=== PATIENT | female | born 2000 | race Caucasian/White ===

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

== ENCOUNTER → 2020-04-24 15:42 | Outpatient (CLI) | payer OTHER, SELFPAY ==
[2019-08-09 11:36] VITALS: BMI 23.6
== END ==
PROVIDERS: PCP Family Medicine; Referring Provider Family Medicine; Visit Provider Family Medicine
DX: Z20.822 Contact with and (suspected) exposure to COVID-19 (principal)
CPT/HCPCS: 87635; U0003

== ENCOUNTER → 2020-10-29 11:44 | Outpatient (CLI) | payer OTHER, SELFPAY ==
[2020-10-29 11:24] VITALS: BMI 24.0
[2020-10-29 13:13] LABS: HIV - WCH Non-Reactive (Nonreactive); Hepatitis C Antibody Non-Reactive (Nonreactive); Syphilis Antibodies Non-reactive
[2020-10-30 08:37] LABS: HSV 2 IgG < 0.91 index (0.00-0.90)
[2020-10-31 03:07] LABS: Chlamydia By Nucleic Acid AMP Negative (Negative)
[2020-10-31 12:11] LABS: Gonococcus By Nucleic Acid AMP Negative (Negative)
== END ==
PROVIDERS: PCP Family Medicine; Referring Provider Nurse Practitioner Women's Health; Visit Provider Nurse Practitioner Women's Health
DX: Z11.3 Encounter for screening for infections with a predominantly sexual mode of transmission (principal); Z20.2 Contact with and (suspected) exposure to infections with a predominantly sexual mode of transmission; N89.8 Other specified noninflammatory disorders of vagina
CPT/HCPCS: 36415; 86695; 86696; 86703; 86780; 86803; 87070; 87205; 87491; 87591

== ENCOUNTER → 2020-11-19 | Outpatient (CLI) | payer OTHER, SELFPAY | END | disposition home or self-care (01) | PROVIDERS: PCP Family Medicine; Visit Provider Nurse Practitioner Women's Health | DX: R30.0 Dysuria (principal) | CPT/HCPCS: 87077; 87086; 87088; 87186 ==

== ENCOUNTER → 2020-12-26 | Outpatient (CLI) | payer OTHER, SELFPAY | END | disposition home or self-care (01) | LOC: LABSPEC 10:37 | PROVIDERS: PCP Family Medicine; Visit Provider Family Medicine | DX: S01.332A Puncture wound without foreign body of left ear, initial encounter (principal); X58.XXXA Exposure to other specified factors, initial encounter; Y93.9 Activity, unspecified; Y92.9 Unspecified place or not applicable; Y99.9 Unspecified external cause status | CPT/HCPCS: 87070; 87077; 87186; 87205 ==

== ENCOUNTER 2021-05-14 11:27 | Outpatient (CLI) | payer OTHER, SELFPAY | END 2021-05-14 23:59 | disposition home or self-care (01) | LOC: LABSPEC 11:27 | PROVIDERS: PCP Family Medicine; Visit Provider Obstetrics & Gynecology | DX: B37.7 Candidal sepsis (principal) | CPT/HCPCS: 87070; 87186; 87205 ==

== ENCOUNTER → 2022-01-15 | Outpatient (CLI) | payer OTHER, SELFPAY | END | disposition home or self-care (01) | LOC: LABSPEC 14:30 | PROVIDERS: PCP Family Medicine; Referring Provider Nurse Practitioner Women's Health; Visit Provider Nurse Practitioner Women's Health | DX: R30.0 Dysuria (principal) | CPT/HCPCS: 87086; 87088; 87186 ==

== ENCOUNTER → 2022-01-27 | Outpatient (CLI) | payer OTHER, SELFPAY ==
[2022-01-27 17:56] LABS: Bacteria 0 SEEN /hpf (None Seen); Mucous, Urine 0 SEEN /hpf (<or=2+); Red Blood Cells-Urine 0 SEEN /hpf (0-5); Squamous Epithelial Cells - UA 0 SEEN /hpf (5-10)
[2022-01-27 18:49] LABS: Color, Urine Yellow (Yellow); Glucose, Dipstick Normal (Normal); Ketone-Dipstick Negative (Negative); Leukocyte Esterase-Dipstick 25 /ul (Negative); Nitrite-Dipstick Negative (Negative); Occult Blood-Urine 150 /ul (Negative); Protein-Dipstick Negative (Negative); Specific Gravity, Urine 1.005 (1.002-1.030); Urine Bilirubin Dipstick Negative (Negative); Urine Clarity Clear (Clear); Urine Urobilinogen Normal (Normal)
[2022-01-27 18:59] LABS: White Blood Cells 0-5 SEEN /hpf (0-5)
[2022-01-30 16:08] LABS: Gonococcus By Nucleic Acid AMP Negative (Negative)
[2022-01-30 16:09] LABS: Chlamydia By Nucleic Acid AMP Positive (Negative)
[2022-02-02 18:41] LABS: HPV Reflexed? NOT INDICATED
== END | disposition home or self-care (01) ==
LOC: LABSPEC 16:59
PROVIDERS: PCP Family Medicine; Referring Provider Nurse Practitioner Women's Health; Visit Provider Nurse Practitioner Women's Health
DX: Z12.4 Encounter for screening for malignant neoplasm of cervix (principal); N39.0 Urinary tract infection, site not specified; N89.8 Other specified noninflammatory disorders of vagina
CPT/HCPCS: 81001; 87070; 87205; 87491; 87591; 88175; G0145

== ENCOUNTER → 2022-04-21 | Outpatient (CLI) | payer OTHER, SELFPAY ==
[2022-04-21 11:00] LABS: HIV - WCH Non-Reactive (Nonreactive); Syphilis Antibodies Non-reactive
[2022-04-22 11:28] LABS: HSV 2 IgG < 0.91 index (0.00-0.90)
[2022-04-23 15:08] LABS: Chlamydia By Nucleic Acid AMP Negative (Negative)
[2022-04-23 16:24] LABS: Gonococcus By Nucleic Acid AMP Negative (Negative)
== END | disposition home or self-care (01) ==
PROVIDERS: PCP Family Medicine; Referring Provider Registered Nurse; Visit Provider Registered Nurse
DX: Z11.3 Encounter for screening for infections with a predominantly sexual mode of transmission (principal)
CPT/HCPCS: 36415; 86695; 86696; 86703; 86780; 87491; 87591

== ENCOUNTER → 2022-11-13 | Outpatient (CLI) | payer OTHER, SELFPAY ==
[2022-11-13 22:08] LABS: HIV - WCH Non-Reactive (Nonreactive); Hepatitis B Surface Antigen Non-Reactive (Nonreactive); Hepatitis C Antibody Non-Reactive (Nonreactive); Syphilis Antibodies Non-reactive
[2022-11-15 05:07] LABS: HSV 2 IgG < 0.91 index (0.00-0.90)
[2022-11-17 22:06] LABS: Chlamydia By Nucleic Acid AMP Negative (Negative); Gonococcus By Nucleic Acid AMP Negative (Negative)
== END | disposition home or self-care (01) ==
PROVIDERS: PCP Family Medicine; Referring Provider Advanced Practice Midwife; Visit Provider Advanced Practice Midwife
DX: N89.8 Other specified noninflammatory disorders of vagina (principal); Z11.3 Encounter for screening for infections with a predominantly sexual mode of transmission
CPT/HCPCS: 36415; 86695; 86696; 86703; 86780; 86803; 87070; 87077; 87205; 87340; 87491; 87591

== ENCOUNTER → 2023-08-12 | Outpatient (CLI) | payer OTHER, SELFPAY ==
[2023-08-12 16:36] LABS: HIV - WCH Non-Reactive (Nonreactive); Syphilis Antibodies Non-reactive
[2023-08-14 19:07] LABS: HCV Quant. RNA PCR HCV Not Detected IU/mL (.); HEPATITIS B SURFACE AG Negative (Negative); Hep C Antibodies Non Reactive (Non Reactive); Hepatitis A IgM Antibody Negative (Negative); Hepatitis B Core AB IgM Negative (Negative)
[2023-08-14 20:07] LABS: Chlamydia By Nucleic Acid AMP Negative (Negative); Gonococcus By Nucleic Acid AMP Negative (Negative)
== END | disposition home or self-care (01) ==
PROVIDERS: PCP Family Medicine; Referring Provider Nurse Practitioner Family; Visit Provider Nurse Practitioner Family
DX: Z11.3 Encounter for screening for infections with a predominantly sexual mode of transmission (principal); B37.31 Acute candidiasis of vulva and vagina
CPT/HCPCS: 36415; 80074; 86703; 86780; 87070; 87205; 87491; 87522; 87591

== ENCOUNTER → 2023-12-10 | Outpatient (CLI) | payer OTHER, SELFPAY ==
[2023-12-14 03:13] LABS: Chlamydia By Nucleic Acid AMP Negative (Negative); Gonococcus By Nucleic Acid AMP Negative (Negative)
== END | disposition home or self-care (01) ==
LOC: LABSPEC 12:48
PROVIDERS: PCP Family Medicine; Referring Provider Advanced Practice Midwife; Visit Provider Advanced Practice Midwife
DX: Z11.3 Encounter for screening for infections with a predominantly sexual mode of transmission (principal)
CPT/HCPCS: 87491; 87591

== ENCOUNTER → 2024-07-13 | Outpatient (CLI) | payer OTHER, SELFPAY ==
[2024-07-13 12:40] LABS: Erythrocyte Sedimentation Rate 3 mm/hr (0-30)
[2024-07-13 12:58] LABS: Absolute Lymphocyte Count 2.18 X10^3/uL (0.83-4.51); Absolute Neutrophil Count 3.5 X10^3/uL (2.0-7.7); Basophil# 0.02 X10^3/uL; Basophil% 0.3 % (0-1); Eosinophil# 0.21 X10^3/uL; Eosinophils% 3.3 % (0-5); Hematocrit 43.2 % (37-47); Hemoglobin 14.1 g/dL (12.0-15.0); Lymphocyte # 2.18 X10^3/ul (0.83-4.51); Lymphocyte % 33.7 % (19-41); Mean Corp Hgb Conc 32.6 g/dL (32-36); Mean Corpuscular Volume 82.8 fL (81-99); Mean Platelet Vol. 10.6 fl (6.2-12.0); Monocyte# 0.52 X10^3/uL; NRBC Flagged by Analyzer 0 % (0-5); Neutrophil # 3.52 X10^3/uL (2.7-7.7); Neutrophil % 54.5 % (47-70); Platelet Count 339 K/mm3 (150-450); RBC Distribution Width CV 12.2 % (11.6-14.6); RBC Distribution Width SD 37.2 fl (35.1-43.9); Red Blood Count 5.22 M/mm3 (4.2-5.4); White Blood Count 6.5 K/mm3 (4.4-11.0)
[2024-07-13 13:26] LABS: ALB/GLOB Ratio 1.3 RATIO (0.9-2.4); AST(SGOT) 22 U/L (<=31); Alanine Aminotransfer ALT/SGPT 17 U/L (<=34); Albumin, Serum 3.9 g/dL (3.5-5.0); Alkaline Phosphatase 91 U/L (35-104); Anion Gap 10 (5-15); BUN 13 mg/dL (4-19); BUN/Creat Ratio 28.6 RATIO (10-20); Calcium,Total 9.8 mg/dL (7.6-11.0); Carbon Dioxide 22.5 mmol/L (21.0-32.0); Chloride 107 mmol/L (98-108); Creatinine, Serum 0.46 mg/dL (0.70-1.20); EST Glomerular Filtration Rate 138 (>60); Globulin 3.1 g/dL (2.2-4.2); Glucose 90 mg/dL (70-99); Potassium 4.2 mmol/L (3.3-5.1); Protein, Total 6.9 g/dL (5.9-8.4); Sodium Level 139 mmol/L (133-145); Thyroid Stim Hormone (TSH) < 0.005 uIU/mL (0.300-4.200); Total Bilirubin 0.33 mg/dL (0.00-1.30)
[2024-07-13 18:22] LABS: Free T3 11.3 pg/mL (2.18-3.98)
== END | disposition home or self-care (01) ==
LOC: MFPLAB 10:58
PROVIDERS: PCP Family Medicine; Visit Provider Nurse Practitioner Family
DX: R51.9 Headache, unspecified (principal); E05.90 Thyrotoxicosis, unspecified without thyrotoxic crisis or storm
CPT/HCPCS: 36415; 80053; 84439; 84443; 84481; 85025; 85652

== ENCOUNTER → 2024-07-15 | Outpatient (CLI) | payer OTHER, SELFPAY ==
[2024-07-15 10:59] LABS: Free T3 10.8 pg/mL (2.18-3.98)
[2024-07-18 16:08] LABS: Thyroglobulin Antibody < 1.0 IU/mL (0.0-0.9); Thyroid Peroxidase AB 35 IU/mL (0-34)
== END | disposition home or self-care (01) ==
LOC: LAB 09:11
PROVIDERS: PCP Family Medicine; Referring Provider Nurse Practitioner Family; Visit Provider Nurse Practitioner Family
DX: E05.90 Thyrotoxicosis, unspecified without thyrotoxic crisis or storm (principal)
CPT/HCPCS: 36415; 84439; 84481; 86376; 86800

== ENCOUNTER → 2024-08-09 | Outpatient (CLI) | payer OTHER, SELFPAY | END | disposition home or self-care (01) | LOC: LABSPEC 14:04 | PROVIDERS: PCP Family Medicine; Referring Provider Advanced Practice Midwife; Visit Provider Advanced Practice Midwife | DX: N89.8 Other specified noninflammatory disorders of vagina (principal) | CPT/HCPCS: 87070; 87077; 87186; 87205 ==

== ENCOUNTER → 2024-09-07 | Outpatient (CLI) | payer OTHER, SELFPAY ==
[2024-09-07 12:03] LABS: Free T3 2.4 pg/mL (2.18-3.98); Thyroid Stim Hormone (TSH) 0.085 uIU/mL (0.300-4.200)
--- OUTSIDE RECORDS SUMMARY | 2024-09-07 12:23 | XMS RPT_ITS | CCD ---
Author Organization [facility] CliniSywa Care Team Providers Care Chief Technician X Ray Name Role Phone Dr. Ken West Primary Care Provider [phone] Dr. Ken West Referring Provider Maryjo SOLUTIONS OPERATOR, ARIADNE-C Shwetha Attending Provider [phone] Dr. Ken West Primary Care Provider [phone] Dr. Ken West Referring Provider Maryjo RON, ARIADNE-C Shwetha Attending Provider [phone] Dr. Dyana Nieves Attending Provider [phone] MADYSON Mcnair Attending Provider [phone] Dr. Ken West Primary Care Provider [phone] Dr. Ken West Referring Provider Dr. Dyana iNeves Attending Provider [phone] MADYSON Whiteside Attending Provider [phone] Dr. Orlando West MD Primary Care Provider Dosfozia MCGRAW, Dr. Turpin Attending Provider [phone] Dosfozia MCGRAW, Dr. Turpin Referring Provider [phone] Jenna CARLTON, Dr. Perry Referring Provider Martha De Jesus Attending Provider Nora RON-CMartha Referring Provider King BRANDT, Dr. Tillman Attending Provider Jenna CARLTON, Dr. Perry Primary Care Provider Dosfozia MCGRAW, Dr. Turpin Attending Provider 1([facility]) Dossi DC, Dr. Turpin Referring Provider [phone] Stevo COUGHLIN, Rebecca Attending Provider Jenna CARLTON, Dr. Perry Primary Care Provider Dossi DC, Dr. Turpin Attending Provider [phone] Dossi DC, Dr. Turpin Referring Provider [phone] Stevo COUGHLIN, Rebecca Referring Provider Dossi, Dyana Referring Unavailable Ranney, Christopher Primary Care Unavailable Dossi, Dyana Attending Unavailable Dossi, Dyana Referring Unavailable Ranney, Christopher Primary Care Unavailable Dossi, Dyana Attending Unavailable Ranney, Christopher Referring Unavailable Ranney, Christopher Primary Care Unavailable Dante Flanagan Attending Unavailable Ranney, Christopher Referring Unavailable Ranney, Christopher Primary Care Unavailable Dossi, Dyana Attending Unavailable Ranney, Christopher Primary Care Unavailable Dosfozia, Dyana Attending Unavailable Dossi, Dyana Referring Unavailable Ranney, Christopher Primary Care Unavailable Ranney, Christopher Referring Unavailable Primo Ceballos Attending Unavailable Ranney, Christopher Referring Unavailable Ranney, Christopher Primary Care Unavailable Rebecca Whiteside Attending Unavailable Dossi, Dyana Referring Unavailable Ranney, Christopher Primary Care Unavailable Dossi, Dyana Attending Unavailable Ranney, Christopher Primary Care Unavailable Nora SOLUTIONS OPERATOR, Martha Referring Unavailable Nora SOLUTIONS OPERATOR, Martha Attending Unavailable Ranney, Christopher Referring Unavailable Ranney, Christopher Primary Care Unavailable Rebecca Whiteside Attending Unavailable Dossi, Dyana Attending Unavailable Ranney, Christopher Primary Care Unavailable Dossi, Dyana Referring Unavailable Ranney, Christopher Primary Care Unavailable Stevo Rebecca Referring Unavailable Stevo Rebecca Attending Unavailable Ranney, Christopher Primary Care Unavailable Nora SOLUTIONS OPERATOR, Martha Attending Unavailable Stevo Rebecca Attending Unavailable Stevo Rebecca Referring Unavailable Ranney, Christopher Primary Care Unavailable Dossi, Dyana Attending Unavailable Ranney, Christopher Primary Care Unavailable Ranney, Christopher Referring Unavailable Dossi, Dyana Attending Unavailable Dossi, Dyana Referring Unavailable Ranney, Christopher Primary Care Unavailable Ranney, Christopher Referring Unavailable Dossi, Dyana Attending Unavailable Ranney, Christopher Primary Care Unavailable Ranney, Christopher Referring Unavailable Ranney, Christopher Primary Care Unavailable DosDyana marcelo Attending Unavailable DossiDyana Attending Unavailable DossiDyana Referring Unavailable [facility] [place] [facility] Care Unavailable Fil[facility]rethren [place] [facility] Unavailable Orlando West Referring Unavailable DosDyana marcelo Attending Unavailable Jenna [facility] Care Unavailable DosDyana marcelo Attending Unavailable Dossi, Dyana Referring Unavailable Jenna [facility] [place] [facility] Care Unavailable DosDyana marcelo Attending Unavailable DosDyana marcelo Referring Unavailable Medications Current Medications Medication Drug Class(es) Dates Sig (Normalized) Sig (Original) 21 day ethinyl estradiol 0.912951 mg/hr / etonogestrel 0.005 mg/hr vaginal system (20 sources) Progestin, Estrogen Start: 04-16-2023 End: 12-10-2023 Etonogestrel-Ethin yl Estradiol (Nuvaring) 0.12-0.015 mg/24 hr ring Active 1 NMA VAGINAL every 4 weeks 3 December 10, 2023 8:25am leave in place for 3 weeks of a 4-week cycle Start: 01-03-2019 End: 11-11-2021 Etonogestrel-Ethinyl Estradi ol (Nuvaring) 0.12-0.015 mg/24 hr ring Discontinued 1 NMA VAGINAL every 4 weeks 3 October 29, 2020 11:36am November 11, 2021 1:20pm Start: 01-03-2019 End: 11-11-2021 Etonogestrel-Ethinyl Estradi ol (Nuvaring) 0.12-0.015 mg/24 hr ring Discontinued 1 VAG RING VAGINAL every 4 weeks 3 October 29, 2020 11:36am November 11, 2021 1:20pm fluconazole 150 mg oral tablet (20 sources) Azole Antifungal Start: 08-09-2024 Fluconazole 1 50 mg tablet Active 150 mg PO Every 3 Days 2 0 August 09, 2024 12:00am may repeat second dose 72 hrs after first dose if symptoms persist Start: 12-10-2023 End: 02-01-2024 Fluconazole 150 mg tablet Discontinued 150 mg PO Every 3 Days 3 December 10, 2023 12:00am February 01, 2024 3:31pm may repeat second dose 72 hrs after first dose if symptoms persist Start: 11-25-2023 End: 12-10-2023 take 1 tablet by mouth once daily Fluconazole 200 mg tablet Discontinued 200 mg PO DAILY 1 November 25, 2023 12:00am December 10, 2023 8:14am Start: 08-17-2023 End: 10-12-2023 Fluconazole 150 mg tablet Discontinued 150 mg PO Every 3 Days 2 August 17, 2023 12:00am October 12, 2023 1:31pm july repeat second dose 72 hrs after first dose if symptoms persist Start: 04-24-2022 End: 08-12-2023 Fluconazole (Diflucan) 150 m g tablet Discontinued 150 mg PO Every 3 Days 2 April 24, 2022 1:00am August 12, 2023 1:52pm Start: 01-03-2021 End: 05-13-2021 Fluconazole 150 mg tablet Discontinued 150 mg PO .COMPLEX 2 January 03, 2021 12:00am May 13, 2021 11:19am 150 mg PO take one po now and repeat in 3 days Start: 01-03-2021 End: 04-21-2022 Fluconazole (Diflucan) 150 m g tablet Discontinued 150 mg PO .COMPLEX 7 May 13, 2021 1:00am April 21, 2022 9:40am 150 mg PO now and in 72 hours and then take weekly for 6 months Start: 10-29-2020 End: 11-19-2020 Fluconazole 150 mg tablet Discontinued 150 mg PO .COMPLEX 2 October 29, 2020 12:00am November 19, 2020 1:01pm 150 mg PO take one po now and repeat in 3 days Start: 01-03-2019 End: 04-11-2019 Fluconazole 150 mg tablet Discontinued 150 mg PO .COMPLEX 2 January 03, 2019 9:48am April 11, 2019 9:48am 150 mg PO take one po now and repeat in 3 days methIMAzole 10 mg oral tablet (8 sources) Thyroid Hormone Synthesis Inhibitor Start: 07-15-2024 End: 08-01-2024 take 2 tablets by mouth once daily Methimazole 10 mg tablet Active 20 mg PO daily 60 August 01, 2024 3:13pm Completed/Discontinued Medications Medication Drug Class(es) Dates Sig (Normalized) Sig (Original) bacillus coagulans [id number] unt / inulin 250 mg oral capsule (7 sources) Start: 04-21-2022 End: 07-15-2024 Bacillus Coagulans-Inulin (Probiotic With Prebiotic) 1 billion-250 cell-mg capsule Discontinued NMA PO April 21, 2022 1:00am July 15, 2024 2:54pm busPIRone hydrochloride 5 mg oral tablet (9 sources) Start: 05-10-2020 End: 05-13-2021 take 1 tablet by mouth twice daily Buspirone 5 mg tablet Discontinued 5 mg PO TWICE A DAY 60 May 10, 2020 1:00am May 13, 2021 11:19am Cranberry Fruit (7 sources) Non-Standardized Food Allergenic Extract, Non-Standardized Plant Allergenic Extract Start: 04-21-2022 End: 07-15-2024 take 1 capsule by mouth once daily Cranberry Fruit 400 mg capsule Discontinued 400 mg PO DAILY April 21, 2022 1:00am July 15, 2024 2:54pm administer with a meal Start: 04-21-2022 take 400 mg by mouth once wang y Cranberry Active 400 MG PO DAILY April 21, 2022 1:00am administer with a meal Start: 04-21-2022 take 400 mg by mouth once wang y Cranberry Active 400 MG PO DAILY April 21, 2022 12:00am administer with a meal Desogestrel-Ethinyl Estradiol (5 sources) Progestin, Estrogen Start: 11-27-2022 End: 08-12-2023 take 0.15 tablet by mouth once daily Desogestrel-Ethinyl Estradiol (Apri) 0.15-0.03 mg tablet Discontinued 1 {tbl} PO DAILY November 27, 2022 12:00am August 12, 2023 1:51pm doxycycline hyclate 100 mg oral capsule (10 sources) Tetracycline-c lass Drug Start: 08-11-2024 End: 08-18-2024 take 1 capsule by mouth twice daily Doxycycline Hyclate 100 mg capsule Discontinued 100 mg PO TWICE A DAY 10 10August 11, 2024 12:00am August 17, 2024 12:00am August 18, 2024 12:08am Start: 01-31-2022 End: 08-12-2023 take 1 capsule by mouth twice daily Doxycycline Hyclate 100 mg capsule Discontinued 100 mg PO TWICE A DAY January 31, 2022 12:00am August 12, 2023 1:51pm Etonogestrel-Ethinyl Estradi ol (Nuvaring) 0.12-0.015 mg/24 hr ring (17 sources) Start: 01-27-2022 End: 11-27-2022 Etonogestrel-Ethinyl Estradi ol (Nuvaring) 0.12-0.015 mg/24 hr ring Discontinued 1 NMA VAGINAL every 4 weeks 3 January 27, 2022 1:35pm November 27, 2022 10:10am Start: 01-27-2022 Etonogestrel-E thinyl Estradiol (Nuvaring) 0.12-0.015 mg/24 hr ring Active 1 VAG RING VAGINAL every 4 weeks 3 January 27, 2022 1:35pm Start: 01-27-2022 Etonogestrel-E thinyl Estradiol (Nuvaring) 0.12-0.015 mg/24 hr ring Active 1 VAG RING VAGINAL every 4 weeks 3 January 27, 2022 12:35pm Start: 11-11-2021 End: 01-27-2022 Etonogestrel-Ethinyl Estradi ol (Nuvaring) 0.12-0.015 mg/24 hr ring Discontinued 1 NMA VAGINAL every 4 weeks 3 November 11, 2021 1:19pm January 27, 2022 1:35pm Start: 11-11-2021 End: 01-27-2022 Etonogestrel-Ethinyl Estradi ol (Nuvaring) 0.12-0.015 mg/24 hr ring Discontinued 1 VAG RING VAGINAL every 4 weeks 3 November 11, 2021 1:19pm January 27, 2022 1:35pm Start: 11-11-2021 End: 01-27-2022 Etonogestrel-Ethinyl Estradi ol (Nuvaring) 0.12-0.015 mg/24 hr ring Discontinued 1 VAG RING VAGINAL every 4 weeks 3 November 11, 2021 12:19pm January 27, 2022 12:35pm Start: 11-11-2021 Etonogestrel-E thinyl Estradiol (Nuvaring) 0.12-0.015 mg/24 hr ring Active 1 VAG RING VAGINAL every 4 weeks 3 November 11, 2021 1:19pm metroNIDAZOLE 500 mg oral tablet (9 sources) Nitroimidazole Antimicrobial Start: 05-17-2021 End: 01-15-2022 take 1 tablet by mouth twice daily Metronidazole 500 mg tablet Discontinued 500 mg PO TWICE A DAY 14 May 17, 2021 1:00am January 15, 2022 1:54pm nitrofurantoin, macrocrystals 100 mg oral capsule (18 sources) Nitrofuran Antibacterial Start: 01-15-2022 End: 01-22-2022 take 1 capsule by mouth twice daily at mealtime Nitrofurantoin Macrocrystal 100 mg capsule Discontinued 100 mg PO TWICE A DAY 14 January 15, 2022 12:00am January 21, 2022 12:00am January 22, 2022 12:03am administer with food (meal or snack) Start: 11-19-2020 End: 11-26-2020 take 1 capsule by mouth twice daily at mealtime Nitrofurantoin Macrocrystal 100 mg capsule Discontinued 100 mg PO TWICE A DAY 14 November 19, 2020 12:00am November 25, 2020 12:00am November 26, 2020 12:01am administer with food (meal or snack) nitrofurantoin, macrocrystals 25 mg / nitrofurantoin, monohydrate 75 mg oral capsule (9 sources) Nitrofuran Antibacterial Start: 08-09-2019 End: 08-16-2019 take 1 capsule by mouth twice daily at mealtime Nitrofurantoin Monohyd/M-Cryst (Macrobid) 100 mg capsule Discontinued 100 mg PO TWICE A DAY 14 August 09, 2019 12:00am August 15, 2019 12:00am August 16, 2019 12:02am must administer with a meal/food tobramycin 3 mg/ml ophthalmic solution (9 sources) Aminoglycoside Antibacterial Start: 05-05-2019 End: 08-09-2019 take 0.3 drop(s) into the eye(s) every two hours Tobramycin 0.3 % drops Discontinued 1 NMA OPHTHALMIC Q2H May 05, 2019 1:00am August 09, 2019 11:36am To affected eye(s) while awake for 5 days Problems Active Problems Problem Classification Problem Date Documented Date Episodic/Chronic Anxiety disorders (9 sources) Anxiety; Translations: [Anxiety disorder, unspecified] 05-13-2021 Chronic Comment on above: hx of trauma Headache; including migraine (10 sources) Headache; Translations: [Headache] 07-11-2024 Episodic Comment on above: awaiting brain MR Headache; including migraine (1 source) Headache; including migraine; Translations: [Headache, unspecified] Onset: 07-18-2024 Inflammation; infection of eye (except that caused by tuberculosis or sexually transmitteddisease) (9 sources) Acute conjunctivitis; Translations: [Unspecified acute conjunctivitis, right eye] 05-13-2021 Episodic Inflammatory diseases of female pelvic organs (2 sources) Infective vaginitis ; Translations: [Acute vaginitis] 08-11-2024 Episodic Mycoses (13 sources) Recurrent candidiasis of vagina; Translations: [Recurrent candidiasis of vagina] Onset: 08-09-2024 05-13-2021 Episodic Comment on above: diflucan x 6 months Other bone disease and musculoskeletal deformities (20 sources) Segmental and somatic dysfunction; Translations: [Segmental and somatic dysfunction of cervical region] 03-10-2022 Episodic Other bone disease and musculoskeletal deformities (6 sources) Segmental and somatic dysfunction of cervical region; Translations: [Nonallopathic lesions, cervical region] Onset: 09-05-2024 03-10-2022 Episodic Other bone disease and musculoskeletal deformities (6 sources) Segmental and somatic dysfunction of lumbar region; Translations: [Nonallopathic lesions, lumbar region] Onset: 09-05-2024 03-10-2022 Episodic Other bone disease and musculoskeletal deformities (6 sources) Segmental and somatic dysfunction of thoracic region; Translations: [Nonallopathic lesions, thoracic region] Onset: 09-05-2024 03-10-2022 Episodic Other bone disease and musculoskeletal deformities (4 sources) Segmental and somatic dysfunction of pelvic region; Translations: [Nonallopathic lesions, pelvic region] Onset: 09-05-2024 09-08-2022 Episodic Other female genital disorders (5 sources) Vaginal bleeding; Translations: [Postcoital and contact bleeding] 11-27-2022 Chronic Other female genital disorders (3 sources) Other specified noninflammatory disorders of vagina; Translations: [Leukorrhea, not specified as infective] Onset: 08-17-2024 Episodic Other non-traumatic joint disorders (15 sources) Pain in wrist; Translations: [Pain in right wrist] 06-13-2024 Episodic Other non-traumatic joint disorders (1 source) Pain in right wrist; Translations: [Pain in right wrist] Onset: 07-14-2024 Episodic Other non-traumatic joint disorders (1 source) Pain in left wrist; Translations: [Pain in left wrist] Onset: 07-14-2024 Episodic Spondylosis; intervertebral disc disorders; other back problems (18 sources) Dorsalgia, unspecified; Translations: [Backache, unspecified] Onset: 06-13-2024 04-14-2022 Episodic Thyroid disorders (11 sources) Thyrotoxicosis; Translations: [Thyrotoxicosis, unspecified without thyrotoxic crisis or storm] Onset: 07-20-2024 07-18-2024 Chronic Unclassified (1 source) Low back pain, unspecified; Translations: [Low back pain, unspecified] Onset: 02-01-2024 Urinary tract infections (13 sources) Urinary tract infection, site not specified; Translations: [Urinary tract infection, site not specified] Episodic Past or Other Problems Problem Classification Problem Date Documented Date Episodic/Chronic Contraceptive and procreative management (1 source) Encounter for contraceptive management, unspecified; Translations: [Encounter for contraceptive management, unspecified] Onset: 12-10-2023 Episodic Immunizations and screening for infectious disease (15 sources) Patient encounter status; Translations: [Encounter for screening for infections with a predominantly sexual mode of transmission] Onset: 12-30-2023 04-21-2022 Episodic Other non-traumatic joint disorders (9 sources) Pain in left knee; Translations: [Left knee pain] Onset: 05-16-2024 05-18-2024 Episodic Results Test Name Value Interpretation Reference Range Facility Chiropractic Reporton 2024 Chiropractic Report [facility] [address] [place] [address] OFFICE VISIT Date of Service: 09/05/24 MR#: [id number] Acct: [id number] Name: VIKASHCHARISSE TOVAR Rep #: [id number] : 2000 Provider: LUCIEN Sosa Age/Sex: 23/F Location: [facility] [place] Status: Signed Intake Vital Signs 12/10/23 08:15 08/09/24 10:33 Height 5 ft 6 in 5 ft 6 in Intake Visit Reasons: ACUPUNCTURE/ADJUSTMENT Chief Complaint: neck and low back pain Is patient in pain?: Yes (low back ) Pain scale (1-10): 5 Allergies No Known Allergies Allergy (Verified 09/05/24 13:16) Medications ???Medication ???Instructions ???Recorded ???Confirmed ???Type etonogestrel 0.12 mg-ethinyl 1 vag ring vaginal Q4W #3 ea 12/0908/09/24 Rx estradiol 0.015 mg/24 hr vaginal ring (NuvaRing) methimazole 10 mg tablet 20 mg (2 x 10 mg) PO QDAY #60 tabs 08/01/24 08/09/24 Rx fluconazole 150 mg tablet 150 mg PO Q3D 2 doses #2 tabs 07/2808/09/24 Rx PFSH Medical History Thyrotoxicosis Surgical History S/P wisdom tooth extraction Family History Mother Hypertension Grandmother Hypertension Aunt Hypertension Uncle Myocardial infarction Social History Smoking Status: Never smoker alcohol intake: current details: occasionally substance use type: does not use caffeine: No what type of physical activity do you participate in: walking and weight training frequency: 3-4 times per week seatbelt use: always do you feel safe at home: Yes additional social history: Single-Works at [employer] ACUPUNCTURE/ADJUSTMENT Chief Complaint: LBP Visit Number: 5 Details: Chief Complaint Back pain Visit Number 5 Details Charisse Tse 23 yr old F presents here for f/u back and neck pain. Pt. reports she has had a flare up of low back pain over the weekend. She states she had a long day at work without breaks then left for a trip Thursday. She states she was in the car for 3 1/2 hours then did a great deal of standing and walking over the next few days. She states her low back is sore, achy and painful across bilaterally. She rates her pain 5/10 today. Since her diagnosis she was started on medication and she has been feeling a lot better. She has not had any recent migraines since starting the medication. She also reports improvement in her wrists and knee pain and stiffness. . She complains stiffness in her neck today as well. She continues to stretch, do yoga and pilates regularly. 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 She reports chiropractic adjustments and acupuncture are effective in relieving her pain and discomfort but gradually returns. Location: neck/ back Duration: frequent Aggravating or associated factors: bending, standing, running Relieving factors: chiro, yoga, acu Pain Quality: aching and dull Exam Musc General: Yes normal posture, normal gait and joint tenderness Cervical Spine: Yes normal cervical lordosis, Yes cervical muscular tenderness right greater than left lower , Yes cervical spasm right greater than left diffuse trapezius, paracervical muscles and intrinsics and Yes misalignment misalignment: C1, C5 and C6 Thoracic/Lumber: Yes thoracic and lumbar spine normal to inspection, Yes paraspinal tenderness bilaterally in the upper thoracic and in the mid thoracic and on the left greater than right (thoracolumbar), Yes thoraco-lumbar spasm on the right greater than left (upper, trap,levator) and on the left greater than right (lower trap, paraspinal (L2-L5),glute med), Yes Trigger (L trap) and Yes misalignment T1, T2, T3, T8, T9, L3, L4, L5 and RIL Sacroiliac joints: bilaterally tender to palpation Other: Spasm of R/L peroneal muscles Office Procedures Procedures - Chiropractic Procedures Manipulation: Cervical C6, Lumbar L4, Thoracic T2 and T8 and Pelvis RIL Manipulation: 3-4 regions Acupuncture: Acupuncture with electrical stimulation (ES) (initial session) Patient Response: positive Details: ???Acupuncture Patient instructions/Risk: Patient instructed not to move and informed of risks of moving. Risks associated with the procedure and the specific location were reviewed with the patient and consent was obtained. Acupuncture performed: E-stim was utilized. Acupoints Treated: GB 41/TW5(girdling), BL23,40,11,DU20, GB30 Sterile, single use, solid filament needles were inserted at various depths and angles to release tight tissue, improve microcirculation and remove neuro-noxious chemicals via a myofascial twitch response. [place] were inserted, (more content not included)... Normal [facility] Genital Culture Comprehensiv alejandra 08-13-2024 VAC Reason for Exam: Vag inal Discharge No yeast, Gardnerella, or Neisseria isolated. Genital Culture Comprehensive Streptococcus agalactiae (B) Amount Growth 3+ Streptococcus agalactiae (B): REACTION Ampicillin Islt PEPE <=0.25 Cefotaxime Islt PEPE <=0.12 S cefTRIAXone Islt PEPE <=0.12 S Clindamycin Islt PEPE >=1 R Erythromycin Islt PEPE >=8 R Linezolid Islt PEPE <=2 S Vancomycin Islt PEPE 0.5 S Normal [facility] Comment on above: Performed By: #### M 100.3200, M100.1999 ####[facility] [id number] [place], [address] Genital cultureOrdered By: Sebas Whiteside on 08-09-2024 Source specific culture Streptococcus ag alactiae (B) Abnormal [facility] Gram Stainon 08-09-2024 GS Reason for Exam: Vag inal Discharge Gram Stain 1+ Gram positive rods 3+ Gram positive cocci No Gram negative diplococci 1+ Epithelial cells Score = 3 Interpretation: 0-3 Normal, 4-6 Intermediate, 7-10 Positive BV Normal [facility] Comment on above: Performed By: #### M 100.3200, M100.1999 ####[facility] [id number] [place], [place], [id number] Gram stainOrdered By: Rebecca Whiteside on 08-09-2024 Microscopic observation Gram stain Nom (Unsp spec) [facility] Office Visit Reporton 08-09-2024 [facility] Office Visit Report [facility] [address], [address] [place] [address] OFFICE VISIT Date of Service: 08/09/24 MR#: [id number] Acct: [id number] Name: CHARISSE TSE Rep #: [id number] : 2000 Provider: MADYSON Markham ams Age/Sex: 23/F [place] [facility] [place] Status: Signed Intake Vital Signs 07/15/24 14:52 08/09/24 10:32 08/09/24 10:33 Height 5 ft 6 in 5 ft 6 in 5 ft 6 in Weight: 157 lb 151 lb 6 oz BMI 25.3 24.4 BP 136/96 H 128/69 H Blood Pressure Location Lt brachial Position Sitting Pulse 113 H Pulse Source Monitor Pulse Oximetry (%) 98 Oxygen Delivery Method room air Intake Visit Reasons: Discuss hormones Chief Complaint: Discuss Hormones Lifestyle Director Required: No Is patient in pain?: No Allergies No Known Allergies Allergy (Verified 08/09/24 10:32) Medications ???Medication ???Instructions ???Recorded ???Confirmed ???Type etonogestrel 0.12 mg-ethinyl 1 vag ring vaginal Q4W #3 ea 12/0908/09/24 Rx estradiol 0.015 mg/24 hr vaginal ring (NuvaRing) methimazole 10 mg tablet 20 mg (2 x 10 mg) PO QDAY #60 tabs 08/01/24 08/09/24 Rx fluconazole 150 mg tablet 150 mg PO Q3D 2 doses #2 tabs 07/2808/09/24 Rx Control Method: NuvaRing [facility] Medical History Thyrotoxicosis Surgical History S/P wisdom tooth extraction Family History Mother Hypertension Grandmother Hypertension Aunt Hypertension Uncle Myocardial infarction Social History Smoking Status: Never smoker alcohol intake: current details: occasionally substance use type: does not use caffeine: No what type of physical activity do you participate in: walking and weight training frequency: 3-4 times per week seatbelt use: always do you feel safe at home: Yes additional social history: Single-Works at [employer] Discuss hormones Details: CHARISSE TSE is a 23 year old who presents for follow up for control follow up. recently dx with graves disease after having headache for one week. went to PCP and labs done which showed hyperthyroid. following with Dr Ceballos. wants to make sure nuvaring is ok with this dx. menses are normal but has noticed slight changes over the last couple months. WOuld like to attempt in the next couple years and is concerned with this. concerns with yeast infection that has been recurring on and off the last couple months-has not used OTC med. Female Reproductive History Last Menstrual Period: 08/04/24 Cycle Length: 21-35 Bleeding Duration: 4 Questions: metorrhagia: No, sexually active: Yes, dyspareunia: No and PCB: No History 0 Elective abortions Hx Para Spontaneous abortions Hx # Term Pregnancies Ectopic pregnancies Hx # Pregnancies Multiple births # of living children ROS Const Constitutional: Reports system reviewed and no additional complaints, except as documented Cardio Card: Reports system reviewed and no additional complaints, except as documented Resp Resp: Reports system reviewed and no additional complaints, except as documented GI GI: Reports system reviewed and no additional complaints, except as documented : Reports system reviewed and no additional complaints, except as documented; Denies difficulty voiding, dysuria or urinary frequency Skin Skin/Breast: Reports system reviewed and no additional complaints, except as documented Neuro Neuro: Reports system reviewed and no additional complaints, except as documented Psych Psych: Reports system reviewed and no additional complaints, except as documented Exam Const General: cooperative, healthy appearing, comfortable and no acute distress Resp Effort Inspection: normal respiratory effort, able to speak in complete sentences and symmetric chest movement GI Inspection: normal to inspection Palpation: soft External Female Exam: normal external appearance and normal appearance of the urethra Urethra: normal appearance of the urethra Speculum Exam - Vagina: normal appearance of the vagina and normal vaginal discharge Speculum Exam - Cervix: normal appearance of the cervix and nontender Bimanual Exam- Vagina Uterus: normal bimanual exam, normal palpation, uterine size normal, No tender and non-tender Bimanual Exam- Adnexa, other: normal Pelvic Support: normal Neuro General: patient alert, patient awake and patient oriented x3 Cognition: normal cognition Speech: speech normal Gait: normal gait Psych Appearance: grossly normal and well kempt Mental Status: mental status grossly normal Affect: normal affect Speech a (more content not included)... Normal [facility] Chiropractic Reporton 2024 Chiropractic Report [facility] [place], [place] [id number] OFFICE VISIT Date of Service: 08/08/24 MR#: [id number] Acct: [id number] Name: CHARISSE TSE Rep #: [id number] : 2000 Provider: LUCIEN Sosa Age/Sex: 23/F Location: [facility] [place] Status: Signed Intake Vital Signs 12/10/23 08:15 07/15/24 14:52 Height 5 ft 6 in 5 ft 6 in Intake Visit Reasons: DRY NEEDLING/ADJUSTMENT Chief Complaint: Back pain Is patient in pain?: Yes (Neck, wrist) Pain scale (1-10): 2 Allergies No Known Allergies Allergy (Verified 08/08/24 13:23) Medications ???Medication ???Instructions ???Recorded ???Confirmed ???Type etonogestrel 0.12 mg-ethinyl 1 vag ring vaginal Q4W #3 ea 12/0908/08/24 Rx estradiol 0.015 mg/24 hr vaginal ring (NuvaRing) methimazole 10 mg tablet 20 mg (2 x 10 mg) PO QDAY #60 tabs 08/01/24 08/08/24 Rx PFSH Medical History Thyrotoxicosis Surgical History S/P wisdom tooth extraction Family History Mother Hypertension Grandmother Hypertension Aunt Hypertension Uncle Myocardial infarction Social History Smoking Status: Never smoker alcohol intake: current details: occasionally substance use type: does not use caffeine: No what type of physical activity do you participate in: walking and weight training frequency: 3-4 times per week seatbelt use: always do you feel safe at home: Yes additional social history: Single-Works at [employer] DRY NEEDLING/ADJUSTMENT Chief Complaint: Back pain Visit Number: 5 Details: Charisse Tse 23 yr old F presents here for f/u back and neck pain. Pt was diagnosed with Grave's disease and hyperthyroidism. Since her diagnosis she was started on medication and she has been feeling a lot better. She has not had any recent migraines since starting the medication. She also reports improvement in her overall pain and stiffness. She had cancelled her MRI since this diagnosis because it explains all of her symptoms. She complains of pain and stiffness in her wrists due to overuse from work. She also is experiencing pain in her neck that is equal bilaterally. She rates her pain 2/10. She has been stretching, and lifting weights recently without it exacerbating her pain. She treats pain and stiffness at home with stretching, yoga and pilates. 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 She reports chiropractic adjustments and dry needling are effective in relieving her pain and discomfort but gradually returns. Location: Neck/Back Duration: frequent Aggravating or associated factors: Work, standing,running Relieving factors: Chiropractic, yoga,DN Pain Quality: aching and dull Exam Musc General: Yes normal posture, normal gait and joint tenderness Cervical Spine: Yes normal cervical lordosis, Yes cervical muscular tenderness right greater than left diffuse , Yes cervical spasm right greater than left diffuse trapezius, paracervical muscles and intrinsics, Yes Trigger (R/L SOCIAL WELFARE CLERK) and Yes misalignment misalignment: C1, C5 and C6 Thoracic/Lumber: Yes thoracic and lumbar spine normal to inspection, Yes paraspinal tenderness bilaterally in the upper thoracic and in the mid thoracic and on the left greater than right (thoracolumbar), Yes thoraco-lumbar spasm on the right greater than left (upper, trap,levator) and on the left greater than right (lower trap, paraspinal (L2-L5),glute med), Yes Trigger (R trap, R/L glute med) and Yes misalignment T1, T2, T3, T8, T9, L3, L4, L5 and RIL Sacroiliac joints: bilaterally tender to palpation Other: Spasm of R/L peroneal muscles Office Procedures Procedures - Chiropractic Procedures Manipulation: Cervical C6, Lumbar L4, Thoracic T2 and T8 and Pelvis RIL Manipulation: 3-4 regions Patient Response: positive Dry Needling Patient Position: Prone Patient Instructions/Consent: Patient instructed not to move and informed of risks of moving. Risks associated with the procedure and the specific location were reviewed with the patient and consent was obtained. Procedure: The R/L SOCIAL WELFARE CLERK, glute medius and R trap was located by palpation. The skin and surrounding area was inspected and found to be free of any defects. The area was cleaned and prepped. Needle Number: .[id number] and .[id number] Minutes: 20 Therapy Performed by: Dr. Dyana Nieves DC Patient Response: Positive Assessment and Plan Assessment and Plan (1) Segmental and somatic dysfunction of cervical region: Status: Acute (2) Segmental and somatic dysfunction of thoracic region: Status: Acute (3) Segmental (more content not included)... Normal [facility] Thyroid Antibodieson 025 TG AB < 1.0 Normal 0.0-0.9 [facility] Comment on above: Result Comment: Thyr oglobulin Antibody measured by [employer] Methodology It should be noted that the presence of thyroglobulin antibodies may not be pathogenic nor diagnostic, especially at very low levels. The assay assistant drafter has found that four percent of individuals without evidence of thyroid disease or autoimmunity will have positive TgAb levels up to 4 IU/mL. Performed at: [address] [id number] Pharmacy Benefits Coordinator: Brien Zamorano PhD, Phone: [phone] Performed By: #### L 501.47794, L541.0320, E8840.7454 ####[facility] [address] [place], [address] THYR PEROX AB 35 IU/mL High 0-34 [facility] Comment on above: Performed By: #### L 501.88716, [id number], L3760.0734 ####[facility] [address] [place], [place], [id number] Endocrinology Visit Reporton 07-15-2024 Endocrinology Visit Report [facility] [address] [place], [place] [address] OFFICE VISIT Date of Service: 07/15/24 MR#: [id number] Acct: [id number] Name: CHARISSE TSE Rep #: [id number] : 2000 Provider: Macie Purdy Age/Sex: 23/F Location: [facility] [place] Status: Signed Intake Vital Signs 12/10/23 08:15 07/15/24 14:52 Height 5 ft 6 in 5 ft 6 in Weight: 157 lb BMI 25.3 BP 136/96 H Blood Pressure Location Lt brachial Position Sitting Pulse 113 H Pulse Source Monitor Pulse Oximetry (%) 98 Oxygen Delivery Method room air Intake Visit Reasons: Thyroid Chief Complaint: thyroid Is patient in pain?: No Allergies No Known Allergies Allergy (Verified 07/15/24 14:54) Medications ???Medication ???Instructions ???Recorded ???Confirmed ???Type etonogestrel 0.12 mg-ethinyl 1 vag ring vaginal Q4W #3 ea 12/0907/15/24 Rx estradiol 0.015 mg/24 hr vaginal ring (NuvaRing) methimazole 10 mg tablet 20 mg (2 x 10 mg) PO QDAY #60 tabs 07/15/24 07/15/24 Rx PFSH Medical History (Updated 07/18/24 @ 07:[address] Primo Ceballos MD) Thyrotoxicosis Surgical History S/P wisdom tooth extraction Family History Mother Hypertension Grandmother Hypertension Aunt Hypertension Uncle Myocardial infarction Social History Smoking Status: Never smoker alcohol intake: current details: occasionally substance use type: does not use caffeine: No what type of physical activity do you participate in: walking and weight training frequency: 3-4 times per week seatbelt use: always do you feel safe at home: Yes additional social history: Single-Works at [employer] Chief Complaint: thyroid Details: CHARISSE TSE, is a 23 F who presents to the office today for evaluation and management of thyroid. She reports that about 3 weeks ago she had a bad migraine headache. She had vomiting and pre- syncope. She just didn't feel right. She had an out of body experience. Since that day she has had recurrent headaches. She has poor sleep and she is irritable and more emotional. Grandfather had Grave's disease treated with TELLEZ. She would like to have a baby in the next few years. ROS Const Constitutional: Positive for fatigue and headache(s); No weight change or change in appetite Eyes Eyes: No change in vision ENT ENT: Positive for dizziness/vertigo and headache(s); No difficulty swallowing Cardio Cardiology: No chest pain at rest, chest pain with exertion, shortness of breath or palpitations Musc Musculoskeletal: Positive for numbness; No abnormal gait, joint pain or tingling Neuro Neurology: Positive for headache(s) and numbness; No abnormal gait, memory loss or tingling Psych Psychiatric: No change in appetite, Positive for irritability, No memory loss and No Thoughts of harming yourself/Others Resp Respiratory: No cough, chest congestion or shortness of breath Gastro GI: No abdominal pain, constipation, diarrhea or difficulty swallowing Genitourinary-Female: No burning urination Skin Skin: No itchy eyes or wounds Endo Endocrine: Positive for fatigue; No weight change Aller/Imm Allergy/Immunologic: No itchy eyes Exam Const General: cooperative, healthy appearing, comfortable, no acute distress, well developed, anxious and not cushingoid Nutritional Appearance: well nourished Orientation: alert, awake and oriented x3 HENMT Head: normal to inspection Ears: hearing grossly normal bilaterally Nose: external nose normal Mouth: oral mucosae normal Eyes General: appearance normal, both eyes and all related structures Alignment and Position: alignment normal Periorbital: periorbital findings normal Eyelids: eyelids normal Conjunctivae: conjunctivae normal Neck Neck: normal visual inspection Neck mass: No Thyroid: diffusely enlarged Carotids: bruit Lymphatic: no lymphadenopathy noted Chest Chest palpation inspection: normal inspection of the chest Resp Effort Inspection: normal respiratory effort, able to speak in complete sentences, symmetric chest movement, no audible wheezes and no cough Auscultation: Bilateral: Clear to Auscultation Cardio Rate: tachycardic Rhythm: regular rhythm Pulses: posterior tibial pulses present Skin General: no rashes or lesions noted Neuro General: patient alert, patient awake and patient oriented x3 Cranial Nerves: CN's II-XI intact bilaterally Cognition: normal cognition Speech: speech normal Gait: normal gait Motor: muscle tone normal throughout Extrem General: no edema Psych Appearance: grossly normal Mental Status: mental stat (more content not included)... Normal [facility] Free T3on 07-15-2024 Free T3 [Mass/Vol] 10.8 pg/mL High 2.18-3.98 [facility] Comment on above: Performed By: #### L 501.82374, L506.0400, L3300.6750 #### [facility] [address] [place], [place], [address] Free [id number] By: Martha wong on 07-15-2024 Free T3 [Mass/Vol] 10.8 pg/mL High 2.18-3.98 [facility] Free Triiodothyronine (T3) pg/dL 10.8 pg/mL High 2.18-3.98 [facility] Serum or plasma thyroperoxid ase antibody assay (units/volume)Ordered By: Martha Melendez on 07-15-2024 TPO Ab Qn 35 [IU]/mL High 0-34 [facility] T4 Free Directon 07-15-2024 T4 FREE DIRECT 2.80 ng/dL High 0.76-1.46 [facility] Comment on above: Performed By: #### L 501.97035, L506.0400, L3300.6750 ####[facility] [address] [place], [place], [address] T4 freeOrdered By: Martha wong on 07-15-2024 Free T4 [Mass/Vol] 2.80 ng/dL High 0.76-1.46 [facility] TPO Ab QnOrdered By: Martha gupta on 07-15-2024 Thyroid Peroxidase Antibodies 35 IU/mL High 0-34 [facility] Thyroglobulin Ab serumOrdere d By: Martha Melendez on 07-15-2024 Thyroglobulin Antibody < 1.0 IU/mL 0.0-0.9 [facility] Comment on above: Thyroglobulin Antibo dy measured by Gabirel CoulterMethodologyIt should be noted that the presence of thyroglobulinantibodies may not be pathogenic nor diagnostic, especiallyat very low levels. The assay assistant drafter has found thatfour percent of individuals without evidence of thyroiddisease or autoimmunity will have positive TgAb levels upto 4 IU/mL.Performed at: [address] [id number] Director: Brien Zamorano PhD, Phone: [phone] Absolute lymphocyte countOrd ered By: Martha Melendez on 07-13-2024 Lymphocytes Auto (Unsp spec) [#/Vol] 2.18 10*3/uL 0.83-4.51 [facility] Absolute neutrophil countOrd ered By: Martha Melendez on 07-13-2024 Neutrophils (Bld) [#/Vol] 3.5 10*3/uL 2.0-7.7 [facility] Anion gap in Serum or Plasma Ordered By: Martha Melendez on 07-13-2024 Anion gap [Moles/Vol] 10 mmol/L 5-15 [facility] Automated lymphocyte count a s percentage of total leukocytesOrdered By: Martha Melendez on 07-13-2024 Lymphocytes/100 WBC Auto (Unsp spec) 33.7 % - [facility] BUN/creatinine ratioOrdered By: Marthakraig Melendez on 07-13-2024 Urea nitrogen/Creatinine [Mass ratio] 28.6 mg/mg High 10- [facility] Basophil percentageOrdered B y: Martha Meelndez on 07-13-2024 Basophils/100 WBC (Bld) 0.3 % 0-1 [facility] Bilirubin, totalOrdered By: Martha Melendez on 07-13-2024 Bilirubin [Mass/Vol] 0.33 mg/dL 0.00-1.30 [facility] CBC W/Diff, Automatedon 06-28 Absolute Lymph 2.18 X10 3/uL Normal 0.83-4.51 [facility] Comment on above: Order Comment: Order Date: 07/11/24Order Info: [id number] - CBCDOrder Info: [id number] - SED Performed By: #### L 500.4050, L101.9900, L501.9520, L100.0100 ####[facility] [address] [place], [address] Absolute Neut 3.5 X10 3/uL Normal 2.0-7.7 [facility] Comment on above: Order Comment: Order Date: 07/11/24Order Info: [id number] - CBCDOrder Info: [id number] - SED Performed By: #### L 500.4050, L101.9900, L501.9520, L100.0100 ####[facility] [address] [place], [address] Basophils/100 WBC (Bld) 0.3 % Normal 0-1 [facility] Comment on above: Order Comment: Order Date: 07/11/24Order Info: 183- - CBCDOrder Info: [id number] - SED Performed By: #### L 500.4050, L101.9900, L501.9520, L100.0100 ####[facility] [address] [place], [address] Eosinophils/100 WBC (Bld) 3.3 % Normal 0-5 [facility] Comment on above: Order Comment: Order Date: 07/11/24Order Info: [id number] - CBCDOrder Info: [id number] - SED Performed By: #### L 500.4050, L101.9900, L501.9520, L100.0100 ####[facility] [address] [place], [address] Erythrocyte distribution width (RBC) [Ratio] 12.2 % Normal 11.6-14.6 [facility] Comment on above: Order Comment: Order Date: 07/11/24Order Info: [id number] - CBCDOrder Info: [id number] - SED Performed By: #### L 500.4050, L101.9900, L501.9520, L100.0100 ####[facility] [address] [place], [address] Hematocrit (Bld) [Volume fraction] 43.2 % Normal 37-47 [facility] Comment on above: Order Comment: Order Date: 07/11/24Order Info: 018- - CBCDOrder Info: [id number] - SED Performed By: #### L 500.4050, L101.9900, L501.9520, L100.0100 ####[facility] [address] [place], [address] Hemoglobin (Bld) [Mass/Vol] 14.1 g/dL Normal 12.0-15.0 [facility] Comment on above: Order Comment: Order Date: 07/11/24Order Info: 018- - CBCDOrder Info: [id number] - SED Performed By: #### L 500.4050, L101.9900, L501.9520, L100.0100 ####[facility] [address] [place], [address] IG% 0.200 Normal 0.0-0.9 [facility] Comment on above: Order Comment: Order Date: 07/11/24Order Info: 183- - CBCDOrder Info: [id number] - SED Result Comment: IG% - Immature Granulocytes (promyelocytes, myelocytes and metamyelocytes) > 1% indicates that a LEFT SHIFT is Present. Performed By: #### L 500.4050, L101.9900, L501.9520, L100.0100 ####[facility] [address] [place], [address] Lymphocytes/100 WBC (Bld) 33.7 % Normal 19-41 [facility] Comment on above: Order Comment: Order Date: 07/11/24Order Info: 018- - CBCDOrder Info: [id number] - SED Performed By: #### L 500.4050, L101.9900, L501.9520, L100.0100 ####[facility] [address] [place], [address] MCH (RBC) [Entitic mass] 27.0 pg Normal 27.0-32.0 [facility] Comment on above: Order Comment: Order Date: 07/11/24Order Info: 018- - CBCDOrder Info: [id number] - SED Performed By: #### L 500.4050, L101.9900, L501.9520, L100.0100 ####[facility] [address] [place], [address] MCHC (RBC) [Mass/Vol] 32.6 g/dL Normal 32-36 [facility] Comment on above: Order Comment: Order Date: 07/11/24Order Info: 018-1 - CBCDOrder Info: [id number] - SED Performed By: #### L 500.4050, L101.9900, L501.9520, L100.0100 ####[facility] [address] [place], [address] MCV (RBC) [Entitic vol] 82.8 fL Normal 81-99 [facility] Comment on above: Order Comment: Order Date: 07/11/24Order Info: 018- - CBCDOrder Info: [id number] - SED Performed By: #### L 500.4050, L101.9900, L501.9520, L100.0100 ####[facility] [address] [place], [address] Monocytes/100 WBC (Bld) 8.0 % Normal 0-10 [facility] Comment on above: Order Comment: Order Date: 07/11/24Order Info: 018- - CBCDOrder Info: [id number] - SED Performed By: #### L 500.4050, L101.9900, L501.9520, L100.0100 ####[facility] [address] [place], [address] Neutrophils/100 WBC (Bld) 54.5 % Normal 47-70 [facility] Comment on above: Order Comment: Order Date: 07/11/24Order Info: 018- - CBCDOrder Info: [id number] - SED Performed By: #### L 500.4050, L101.9900, L501.9520, L100.0100 ####[facility] [address] [place], [address] Nucleated RBC (Bld) [#/Vol] 0 10*3/uL Normal 0-5 [facility] Comment on above: Order Comment: Order Date: 07/11/24Order Info: 0184- - CBCDOrder Info: [id number] - SED Performed By: #### L 500.4050, L101.9900, L501.9520, L100.0100 ####[facility] [address] [place], [address] Platelet mean volume (Bld) [Entitic vol] 10.6 fL Normal 6.2-12.0 [facility] Comment on above: Order Comment: Order Date: 07/11/24Order Info: 0184- - CBCDOrder Info: [id number] - SED Performed By: #### L 500.4050, L101.9900, L501.9520, L100.0100 ####[facility] [address] [place], [address] Platelets (Bld) [#/Vol] 339 10*3/uL Normal 150-450 [facility] Comment on above: Order Comment: Order Date: 07/11/24Order Info: 0184- - CBCDOrder Info: [id number] - SED Performed By: #### L 500.4050, L101.9900, L501.9520, L100.0100 ####[facility] [address] [place], [address] RBC (Bld) [#/Vol] 5.22 10*6/uL Normal 4.2-5.4 [facility] Comment on above: Order Comment: Order Date: 07/11/24Order Info: 0184- - CBCDOrder Info: [id number] - SED Performed By: #### L 500.4050, L101.9900, L501.9520, L100.0100 ####[facility] [address] [place], [address] RDW SD 37.2 fl Normal 35.1-43.9 [facility] Comment on above: Order Comment: Order Date: 07/11/24Order Info: 0184-1 - CBCDOrder Info: [id number] - SED Performed By: #### L 500.4050, L101.9900, L501.9520, L100.0100 ####[facility] [address] [place], [address] WBC (Bld) [#/Vol] 6.5 10*3/uL Normal 4.4-11.0 [facility] Comment on above: Order Comment: Order Date: 07/11/24Order Info: 0184- - CBCDOrder Info: [id number] - SED Performed By: #### L 500.4050, L101.9900, L501.9520, L100.0100 ####[facility] [address] [place], [address] Carbon dioxide, total [Moles /volume] in Central venous bloodOrdered By: Martha Melendez on 07-13-2024 CO2 [Moles/Vol] 22.5 mmol/L 21.0-32.0 [facility] Chloride assayOrdered By: Hardik Melendez on 07-13-2024 Chloride [Moles/Vol] 107 mmol/L 98-108 [facility] Comprehensive Metabolic Prof ilon 07-13-2024 Albumin [Mass/Vol] 3.9 g/dL Normal 3.5-5.0 [facility] Comment on above: Order Comment: Order Date: 07/11/24Order Info: [id number] - CMPOrder Info: [id number] - TSH Performed By: #### L 500.4050, L101.9900, L501.9520, L100.0100 ####[facility] [address] [place], [address] Albumin/Globulin [Mass ratio] 1.3 {ratio} Normal 0.9-2.4 [facility] Comment on above: Order Comment: Order Date: 07/11/24Order Info: [id number] - CMPOrder Info: [id number] - TSH Performed By: #### L 500.4050, L101.9900, L501.9520, L100.0100 ####[facility] [address] [place], [address] ALK PHOS 91 U/L Normal 35-104 [facility] Comment on above: Order Comment: Order Date: 07/11/24Order Info: 0786-1 - CMPOrder Info: [id number] - TSH Performed By: #### L 500.4050, L101.9900, L501.9520, L100.0100 ####[facility] [address] [place], [address] ALT [Catalytic activity/Vol] 17 U/L Normal <=34 [facility] Comment on above: Order Comment: Order Date: 07/11/24Order Info: [id number] - CMPOrder Info: [id number] - TSH Performed By: #### L 500.4050, L101.9900, L501.9520, L100.0100 ####[facility] [address] [place], [address] AST [Catalytic activity/Vol] 22 U/L Normal <=31 [facility] Comment on above: Order Comment: Order Date: 07/11/24Order Info: 0786-1 - CMPOrder Info: [id number] - TSH Performed By: #### L 500.4050, L101.9900, L501.9520, L100.0100 ####[facility] [address] [place], [address] Bilirubin [Mass/Vol] 0.33 mg/dL Normal 0.00-1.30 [facility] Comment on above: Order Comment: Order Date: 07/11/24Order Info: [id number] - CMPOrder Info: [id number] - TSH Performed By: #### L 500.4050, L101.9900, L501.9520, L100.0100 ####[facility] [address] [place], [address] BUN/CRE 28.6 RATIO High 10-20 [facility] [facility] Comment on above: Order Comment: Order Date: 07/11/24Order Info: 0786-1 - CMPOrder Info: 6-3 - TSH Performed By: #### L 500.4050, L101.9900, L501.9520, L100.0100 ####[facility] [address] [place], [address] Calcium [Mass/Vol] 9.8 mg/dL Normal 7.6-11.0 [facility] Comment on above: Order Comment: Order Date: 07/11/24Order Info: 0786-1 - CMPOrder Info: 3015-3 - TSH Performed By: #### L 500.4050, L101.9900, L501.9520, L100.0100 ####[facility] [address] [place], [address] Chloride [Moles/Vol] 107 mmol/L Normal 98-108 [facility] Comment on above: Order Comment: Order Date: 07/11/24Order Info: 0786-1 - CMPOrder Info: 3015-3 - TSH Performed By: #### L 500.4050, L101.9900, L501.9520, L100.0100 ####[facility] [address] [place], [address] CO2 [Moles/Vol] 22.5 mmol/L Normal 21.0-32.0 [facility] Comment on above: Order Comment: Order Date: 07/11/24Order Info: 0786-1 - CMPOrder Info: 3015-3 - TSH Performed By: #### L 500.4050, L101.9900, L501.9520, L100.0100 ####[facility] [address] [place], [address] Creatinine [Mass/Vol] 0.46 mg/dL Low 0.70-1.20 [facility] Comment on above: Order Comment: Order Date: 07/11/24Order Info: 0786-1 - CMPOrder Info: 3016-3 - TSH Performed By: #### L 500.4050, L101.9900, L501.9520, L100.0100 ####[facility] [address] [place], [address] GAP 10 Normal 5-15 [facility] Comment on above: Order Comment: Order Date: 07/11/24Order Info: 0786-1 - CMPOrder Info: 3016-3 - TSH Performed By: #### L 500.4050, L101.9900, L501.9520, L100.0100 ####[facility] [address] [place], [address] GFR/1.73 sq M.predicted among non-blacks MDRD (S/P/Bld) [Vol rate/Area] 138 mL/min/{1.73_m2} Normal >60 [facility] Comment on above: Order Comment: Order Date: 07/11/24Order Info: 0786-1 - CMPOrder Info: 3016-3 - TSH Result Comment: mL/m in/1.73m2 CKD-EPI Creatinine Equation (2020) Performed By: #### L 500.4050, L101.9900, L501.9520, L100.0100 ####[facility] [address] [place], [address] Globulin (S) [Mass/Vol] 3.1 g/dL Normal 2.2-4.2 [facility] Comment on above: Order Comment: Order Date: 07/11/24Order Info: 0786-1 - CMPOrder Info: 3016-3 - TSH Performed By: #### L 500.4050, L101.9900, L501.9520, L100.0100 ####[facility] [address] [place], [address] Glucose [Mass/Vol] 90 mg/dL Normal 70-99 [facility] Comment on above: Order Comment: Order Date: 07/11/24Order Info: 0786-1 - CMPOrder Info: 3016-3 - TSH Performed By: #### L 500.4050, L101.9900, L501.9520, L100.0100 ####[facility] [address] [place], [address] Potassium [Moles/Vol] 4.2 mmol/L Normal 3.3-5.1 [facility] Comment on above: Order Comment: Order Date: 07/11/24Order Info: 0786-1 - CMPOrder Info: 3016-3 - TSH Performed By: #### L 500.4050, L101.9900, L501.9520, L100.0100 ####[facility] [address] [place], [address] Sodium [Moles/Vol] 139 mmol/L Normal 133-145 [facility] Comment on above: Order Comment: Order Date: 07/11/24Order Info: 0786-1 - CMPOrder Info: 3016-3 - TSH Performed By: #### L 500.4050, L101.9900, L501.9520, L100.0100 ####[facility] [address] [place], [address] T PROT 6.9 g/dL Normal 5.9-8.4 [facility] Comment on above: Order Comment: Order Date: 07/11/24Order Info: 0786-1 - CMPOrder Info: 3016-3 - TSH Performed By: #### L 500.4050, L101.9900, L501.9520, L100.0100 ####[facility] [address] [place], [address] Urea nitrogen [Mass/Vol] 13 mg/dL Normal 4-19 [facility] Comment on above: Order Comment: Order Date: 07/11/24Order Info: 0786-1 - CMPOrder Info: 3016-3 - TSH Performed By: #### L 500.4050, L101.9900, L501.9520, L100.0100 ####[facility] [address] [place], [place], [address] Eosinophil percentageOrdered By: Martha Melendez on 07-13-2024 Eosinophils/100 WBC (Bld) 3.3 % 0-5 [facility] Erythrocyte Sed Rateon 07-13 SED RATE 3 mm/hr Normal 0-30 [facility] Comment on above: Order Comment: Order Date: 07/11/24Order Info: 0184-1 - CBCDOrder Info: 00026-7 - SED Performed By: #### L 500.4050, L101.9900, L501.9520, L100.0100 ####[facility] [address] [place], [place], [id number] Erythrocyte distribution wid th (RBC) [Ratio]Ordered By: Martha Melendez on 07-13-2024 Erythrocyte distribution width (RBC) [Entitic vol] 37.2 fL 35.1-43.9 [facility] Erythrocyte distribution wid th ratioOrdered By: La Vernia Nora on 07-13-2024 Erythrocyte distribution width (RBC) [Ratio] 12.2 % 11.6-14.6 [facility] Erythrocyte distribution wid th standard deviationOrdered By: La Vernia Nora on 07-13-2024 Erythrocyte distribution width (RBC) [Ratio] 37.2 fl 35.1-43.9 [facility] Erythrocyte sedimentation ra teOrdered By: Marthakraig Melendez on 07-13-2024 ESR (Bld) [Velocity] 3 mm/h 0-30 [facility] Free T3on 07-13-2024 Free T3 [Mass/Vol] 11.3 pg/mL High 2.18-3.98 [facility] Comment on above: Order Comment: Order Date: 07/13/24Order Info: 3051-0 - V5SAcpke Info: 3024-7 - T4F Performed By: #### L 501.83211, L506.0400 ####[facility] [address] [place], [address] Free J7Xnyjnno By: Martha wong on 07-13-2024 Free T3 [Mass/Vol] 11.3 pg/mL High 2.18-3.98 [facility] Free Triiodothyronine (T3) pg/dL 11.3 pg/mL High 2.18-3.98 [facility] GFR/1.73 sq M.predicted adriana g non-blacks MDRD (S/P/Bld) [Vol rate/Area]Ordered By: Martha Melendez on 07-13-2024 Estimated GFR (MDRD) Non-Af Amer 138 >60 [facility] Comment on above: mL/min/1.73m2 CKD-EP I Creatinine Equation (2020) Glomerular filtration rate ( GFR) estimation/1.73 sq m using serum, plasma, or whole bOrdered By: Martha Melendez on 07-13-2024 GFR/1.73 sq M.predicted among non-blacks MDRD (S/P/Bld) [Vol rate/Area] 138 mL/min/{1.73_m2} >60 [facility] Comment on above: mL/min/1.73m2 CKD-EP I Creatinine Equation (2020) Hematocrit Auto (Bld) [Volum e fraction]Ordered By: Martha Melendez on 07-13-2024 Hematocrit (Bld) [Volume fraction] 43.2 % 37-47 [facility] Hemoglobin measurementOrdere d By: Martha Melendez on 07-13-2024 Hemoglobin (Bld) [Mass/Vol] 14.1 g/dL 12.0-15.0 [facility] Immature granulocytes/100 WB C Auto (Bld)Ordered By: Martah Melendez on 07-13-2024 Immature granulocytes/100 WBC (Bld) 0.200 % 0.0-0.9 [facility] Comment on above: IG% - Immature Granu locytes (promyelocytes, myelocytes and metamyelocytes) > 1% indicates that a LEFT SHIFT is Present. Laboratory - Chemistry and C hemistry - challengeOrdered By: Martha Melendez on 07-13-2024 AST [Catalytic activity/Vol] 22 U/L <32 [facility] Lymphocytes Auto (Unsp spec) [#/Vol]Ordered By: Martha Melendez on 07-13-2024 Lymphocytes (Bld) [#/Vol] 2.18 10*3/uL 0.83-4.51 [facility] Lymphocytes/100 WBC Auto (Un sp spec)Ordered By: Martha Melendez on 07-13-2024 Lymphocytes/100 WBC (Bld) 33.7 % 19-41 [facility] MCV (mean corpuscular volume ) determinationOrdered By: Martha Melendez on 07-13-2024 MCV (RBC) [Entitic vol] 82.8 fL 81-99 [facility] Mean corpuscular hemoglobin (MCH) determinationOrdered By: Martha Melendez on 07-13-2024 MCH (RBC) [Entitic mass] 27.0 pg 27.0-32.0 [facility] Mean corpuscular hemoglobin concentration (MCHC) determinationOrdered By: Martha Melendez on 07-13-2024 MCHC (RBC) [Mass/Vol] 32.6 g/dL 32-36 [facility] Mean platelet volume determi nationOrdered By: Martha Melendez on 07-13-2024 Platelet mean volume (Bld) [Entitic vol] 10.6 fL 6.2-12.0 [facility] Monocyte percentageOrdered B y: Martha Melendez on 07-13-2024 Monocytes/100 WBC (Bld) 8.0 % 0-10 [facility] Neutrophil percentageOrdered By: Martha Melnedez on 07-13-2024 Neutrophils/100 WBC (Bld) 54.5 % 47-70 [facility] Nucleated red blood cell per centageOrdered By: Martha Melendez on 07-13-2024 Nucleated RBC/100 WBC (Bld) [Ratio] 0 % 0-5 [facility] Platelet countOrdered By: Hardik Melendez on 07-13-2024 Platelets (Bld) [#/Vol] 339 10*3/uL 150-450 [facility] Potassium (Unsp spec) [Mass/ Vol]Ordered By: Martha Melendez on 07-13-2024 Potassium [Moles/Vol] 4.2 mmol/L 3.3-5.1 [facility] Potassium measurement (mass/ volume)Ordered By: Martha Melendez on 07-13-2024 Potassium (Unsp spec) [Mass/Vol] 4.2 mmol/L 3.3-5.1 [facility] RBC Auto (Bld) [#/Vol]Ordere d By: Martha Melendez on 07-13-2024 RBC (Bld) [#/Vol] 5.22 10*6/uL 4.2-5.4 [facility] Serum creatinine measurement (mass/volume)Ordered By: Martha Melendez on 07-13-2024 Creatinine [Mass/Vol] 0.46 mg/dL Low 0.70-1.20 [facility] Serum globulin measurementOr dered By: Martha Melendez on 07-13-2024 Globulin (S) [Mass/Vol] 3.1 g/dL 2.2-4.2 [facility] Serum glucose measurement (m ass/volume)Ordered By: Martha Melendez on 07-13-2024 Glucose [Mass/Vol] 90 mg/dL 70-99 [facility] Serum or plasma alanine wylie otransferase (ALT) measurementOrdered By: Martha Melendez 07-13-2024 ALT [Catalytic activity/Vol] 17 U/L <35 [facility] Serum or plasma albumin karen urement (mass/volume)Ordered By: Martha Melendez 07-13-2024 Albumin [Mass/Vol] 3.9 g/dL 3.5-5.0 [facility] Serum or plasma albumin/glob ulin mass ratioOrdered By: Martha Melendez 07-13-2024 Albumin/Globulin [Mass ratio] 1.3 {ratio} 0.9-2.4 [facility] Serum or plasma alkaline maxine sphatase measurementOrdered By: Martha Melendez 07-13-2024 ALP [Catalytic activity/Vol] 91 U/L 35-104 [facility] Serum or plasma calcium karen urement (mass/volume)Ordered By: Martha Melendez 07-13-2024 Calcium [Mass/Vol] 9.8 mg/dL 7.6-11.0 [facility] Serum or plasma urea nitroge n measurement (mass/volume)Ordered By: Martha Melendez on 07-13-2024 Urea nitrogen [Mass/Vol] 13 mg/dL 4-19 [facility] Sodium levelOrdered By: Martha Melendez on 07-13-2024 Sodium [Moles/Vol] 139 mmol/L 133-145 [facility] T4 Free Directon 07-13-2024 T4 FREE DIRECT 2.90 ng/dL High 0.76-1.46 [facility] Comment on above: Order Comment: Order Date: 07/13/24Order Info: 3051-0 - I3PIhlnm Info: 3024-7 - T4F Performed By: #### L 501.43426, L506.0400 ####[facility] [address] [place], [place], [id number] T4 freeOrdered By: Martha wong on 07-13-2024 Free T4 [Mass/Vol] 2.90 ng/dL High 0.76-1.46 [facility] TSH DL <= 0.005 mIU/L QnOrde red By: Martha Melendez on 07-13-2024 Thyroid Stimulating Hormone (TSH) < 0.005 uIU/mL Low 0.300-4.200 [facility] TSH Qn < 0.005 uIU/mL Low 0.300-4.200 [facility] Thyroid Stim Hormone (TSH)on 07-13-2024 TSH Qn m[IU]/L Low 0.300-4.200 [facility] Comment on above: Order Comment: Order Date: 07/11/24Order Info: 0786-1 - CMPOrder Info: 3016-3 - TSH Performed By: #### L 500.4050, L101.9900, L501.9520, L100.0100 ####[facility] [address] [place], [place], [address] Total proteinOrdered By: Gina Melendez on 07-13-2024 Protein [Mass/Vol] 6.9 g/dL 5.9-8.4 [facility] White blood cell (WBC) count Ordered By: Martha Melendez on 07-13-2024 WBC (Bld) [#/Vol] 6.5 10*3/uL 4.4-11.0 [facility] Chiropractic Reporton 2024 Chiropractic Report [facility] [address] [place] [address] OFFICE VISIT Date of Service: 07/11/24 MR#: [id number] Acct: [id number] Name: CHARISSE TSE Rep #: [id number] : 2000 Provider: LUCIEN Sosa Age/Sex: 23/F Location: [facility] [place] Status: Signed Intake Vital Signs 12/10/23 08:15 Height 5 ft 6 in Intake Visit Reasons: DRY NEEDLING/ADJUSTMENT Chief Complaint: Back/ neck pain Allergies No Known Allergies Allergy (Verified 07/11/24 13:13) Medications ???Medication ???Instructions ???Recorded ???Confirmed ???Type Bacillus coagulans-inulin 1 cap PO 04/21/22 07/11/24 History billion cell-250 mg capsule (Probiotic with Prebiotic) cranberry fruit 400 mg capsule 400 mg PO DAILY 04/21/22 07/11/24 History etonogestrel 0.12 mg-ethinyl 1 vag ring vaginal Q4W #3 ea 12/0907/11/24 Rx estradiol 0.015 mg/24 hr vaginal ring (NuvaRing) PFSH Surgical History S/P wisdom tooth extraction Family History Mother Hypertension Grandmother Hypertension Aunt Hypertension Uncle Myocardial infarction Social History Smoking Status: Never smoker alcohol intake: current details: occasionally substance use type: does not use caffeine: No what type of physical activity do you participate in: walking and weight training frequency: 3-4 times per week seatbelt use: always do you feel safe at home: Yes additional social history: Single-Works at [employer] DRY NEEDLING/ADJUSTMENT Chief Complaint: Back pain Visit Number: 4 Details: Charisse Tse 23 yr old F presents here for f/u back and neck pain. Pt. reports she has been experiencing a severe migraine the week before last for a week straight with visual disturbances, brain fog and vomiting. She was seen by her PCP last Thursday and was put on Nurtec which has been somewhat helpful. This is 1 week prior to her period. She has an upcoming MRI on July 29. She c/o stiffness in her neck, upper and low back as well as her bilateral hands/wrists. She has been stretching, and lifting weights recently without it exacerbating her pain. She treats pain and stiffness at home with stretching, yoga and pilates. 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 She reports chiropractic adjustments and dry needling are effective in relieving her pain and discomfort but gradually returns. Location: Neck/Back Duration: frequent Aggravating or associated factors: Work, standing,running Relieving factors: Chiropractic, yoga,DN Pain Quality: aching and dull Exam Musc General: Yes normal posture, normal gait and joint tenderness Cervical Spine: Yes normal cervical lordosis Thoracic/Lumber: Yes thoracic and lumbar spine normal to inspection, Yes paraspinal tenderness bilaterally in the mid thoracic and in the lower thoracic and on the left greater than right (thoracolumbar), Yes thoraco-lumbar spasm on the right greater than left (upper, trap,levator) and on the left greater than right (lower trap, paraspinal (L2-L5),glute med) and Yes misalignment T8, T9, L3, L4, L5 and RIL Sacroiliac joints: bilaterally tender to palpation Other: Spasm of R/L peroneal muscles Office Procedures Procedures - Chiropractic Procedures Manipulation: Lumbar L4, Thoracic T8 and Pelvis RIL Manipulation: 3-4 regions Traction, Mechanical: Yes Patient Response: positive Assessment and Plan Assessment and Plan (1) Segmental and somatic dysfunction of thoracic region: Status: Acute (2) Segmental and somatic dysfunction of lumbar region: Status: Acute (3) Segmental and somatic dysfunction of pelvic region: Status: Acute (4) Headache: Status: Acute Qualifiers: Headache type: other headache syndrome Qualified Code(s): G44.89 - Other headache syndrome Comment: awaiting brain MR Orders: Orders Chiropractic Treatments Today M99.01 - Segmental and somatic dysfunction of cervical region, M99.02 - Segmental and somatic dysfunction of thoracic region, M99.03 - Segmental and somatic dysfunction of lumbar region, M99.05 - Segmental and somatic dysfunction of pelvic region Plan Patient has had new HAs that were severe. They began last week and could be related to her menses. She is having a brain MR in 2 weeks. We chose not to do any work on neck for the moment until further testing has been obtained. Recommend CBC to rule out blood deficiencies. Continue care. Plan Details Goals Barriers: Goals Decrease trigger pts/spasm Decrease pain Improve mobility Decrease HAs Follow Up: PRN Coding Level of Care Code No Charge Diagnoses Segmental and somatic dysf (more content not included)... Normal [facility] Chiropractic Reporton 2024 Chiropractic Report [facility] [address] [place] [address] OFFICE VISIT Date of Service: 06/13/24 MR#: [id number] Acct: [id number] Name: CHARISSE TSE Rep #: [id number] : 2000 Provider: LUCIEN Sosa Age/Sex: 23/F Location: [facility] [place] Status: Signed Intake Vital Signs 12/10/23 08:15 Height 5 ft 6 in Intake Visit Reasons: DRY NEEDLING/ADJUSTMENT Chief Complaint: Back/ neck pain Allergies No Known Allergies Allergy (Verified 05/17/24 15:42) [facility] Surgical History S/P wisdom tooth extraction Family History Mother Hypertension Grandmother Hypertension Aunt Hypertension Uncle Myocardial infarction Social History Smoking Status: Never smoker alcohol intake: current details: occasionally substance use type: does not use caffeine: No what type of physical activity do you participate in: walking and weight training frequency: 3-4 times per week seatbelt use: always do you feel safe at home: Yes additional social history: Single-Works at [employer] DRY NEEDLING/ADJUSTMENT Chief Complaint: Back pain Visit Number: 3 Details: Charisse Tse 23 yr old F presents here for f/u back and neck pain. Pt. states she is experiencing some mild stiffness in her neck, upper and low back. She states her bilateral hands/wrists have been hurting lately which is likely d/t her carpal tunnel but she would like to have dry needling done on them today. She has been stretching, and lifting weights recently without it exacerbating her pain. She treats pain and stiffness at home with stretching, yoga and pilates. 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 She reports chiropractic adjustments and dry needling are effective in relieving her pain and discomfort but gradually returns. Location: Neck/Back Duration: frequent Aggravating or associated factors: Work, standing,running Relieving factors: Chiropractic, yoga,DN Pain Quality: aching and dull Exam Musc General: Yes normal posture, normal gait and joint tenderness; No muscle weakness or decreased range of motion Cervical Spine: Yes normal cervical lordosis, Yes cervical muscular tenderness bilateral diffuse , Yes cervical spasm left greater than right diffuse trapezius and other (levator), right upper intrinsics, Yes Trigger (R/L trap,[employer] W[employer]ARE CLERK) and Yes misalignment misalignment: C2, C6 and C7 Thoracic/Lumber: Yes thoracic and lumbar spine normal to inspection, Yes paraspinal tenderness bilaterally in the upper thoracic and in the mid thoracic and on the left greater than right (thoracolumbar), Yes thoraco-lumbar spasm on the right greater than left (upper, trap,levator) and on the left greater than right (lower trap, paraspinal (L2-L5),glute med), Yes Trigger (upper/lower trap) and Yes misalignment T1, T2, T3, T8, T9, L3, L4, L5 and RIL Sacroiliac joints: bilaterally tender to palpation Other: Spasm of R/L peroneal muscles Office Procedures Procedures - Chiropractic Procedures Manipulation: Cervical C2 and C6, Lumbar L4, Thoracic T2 and T8 and Pelvis RIL Manipulation: 3-4 regions Patient Response: positive Dry Needling Patient Position: Prone Patient Instructions/Consent: Patient instructed not to move and informed of risks of moving. Risks associated with the procedure and the specific location were reviewed with the patient and consent was obtained. Procedure: The R/L trap,[employer] WELFARE CLERK, extensor poll. brevis was located by palpation. The skin and surrounding area was inspected and found to be free of any defects. The area was cleaned and prepped. Needle Number: [id number] Minutes: 20 Therapy Performed by: Dr. Dyana Nieves DC Patient Response: Positive Assessment and Plan Assessment and Plan (1) Segmental and somatic dysfunction of cervical region: Status: Acute (2) Segmental and somatic dysfunction of thoracic region: Status: Acute (3) Segmental and somatic dysfunction of lumbar region: Status: Acute (4) Segmental and somatic dysfunction of pelvic region: Status: Acute (5) Bilateral wrist pain: Status: Acute Orders: Orders Chiropractic Treatments Today M99.01 - Segmental and somatic dysfunction of cervical region, M99.02 - Segmental and somatic dysfunction of thoracic region, M99.03 - Segmental and somatic dysfunction of lumbar region, M99.05 - Segmental and somatic dysfunction of pelvic region Plan Patient was treated without incident. Continue care as needed. Plan Details Goals Barriers: Goals Decrease trigger pts/spasm Decrease pain Improve mobility Follow Up: PRN Coding Level of Care Code Dry Needling =>3 Muscles Ivis (more content not included)... Normal [facility] Chiropractic Reporton 2024 Chiropractic Report [facility] [address] [place] [address] OFFICE VISIT Date of Service: 05/17/24 MR#: [id number] Acct: [id number] Name: CHARISSE TSE Rep #: [id number] : 2000 Provider: LUCIEN Sosa Age/Sex: 23/F Location: [facility] [place] Status: Signed Intake Vital Signs 12/10/23 08:15 Height 5 ft 6 in Intake Visit Reasons: DRY NEEDLING/ADJUSTMENT Chief Complaint: Back/ neck pain Allergies No Known Allergies Allergy (Verified 05/17/24 15:42) Medications ???Medication ???Instructions ???Recorded ???Confirmed ???Type Bacillus coagulans-inulin 1 cap PO 04/21/22 05/17/24 History billion cell-250 mg capsule (Probiotic with Prebiotic) cranberry 400 mg capsule 400 mg PO DAILY 04/21/22 05/17/24 History etonogestrel 0.12 mg-ethinyl 1 vag ring vaginal Q4W #3 ea 12/0905/17/24 Rx estradiol 0.015 mg/24 hr vaginal ring (NuvaRing) PFSH Surgical History S/P wisdom tooth extraction Family History Mother Hypertension Grandmother Hypertension Aunt Hypertension Uncle Myocardial infarction Social History Smoking Status: Never smoker alcohol intake: current details: occasionally substance use type: does not use caffeine: No what type of physical activity do you participate in: walking and weight training frequency: 3-4 times per week seatbelt use: always do you feel safe at home: Yes additional social history: Single-Works at [employer] DRY NEEDLING/ADJUSTMENT Chief Complaint: Back pain Visit Number: 2 Details: Charisse Tse 23 yr old F presents here for f/u back and neck pain. She states her pain and stiffness have improved lately. She complains of stiffness in her neck and upper back pain. She states between shoulder blades is very tight. She complains of ongoing low back pain that is worse on the right. She also noted that she walks on the outsides of her feet and has a lot of tightness in the outer ankle. Pt denies new injury, numbness, tingling or radiculopathy. She has been able to run, work out and lift weights recently without it exacerbating her pain.She treats pain and stiffness at home with stretching, yoga and pilates. 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 She recently had a massage which was helpful. She reports chiropractic adjustments and dry needling are effective in relieving her pain and discomfort. Location: Neck/Back Duration: frequent Aggravating or associated factors: Work, standing,running Relieving factors: Chiropractic, yoga Pain Quality: aching and dull Exam Musc General: Yes normal posture, normal gait and joint tenderness; No muscle weakness or decreased range of motion Cervical Spine: Yes normal cervical lordosis, Yes cervical muscular tenderness bilateral lower , Yes cervical spasm left greater than right diffuse trapezius and other (levator), right upper in trinsics, Yes Trigger (R/L trap,SOCIAL WELFARE CLERK) and Yes misalignment misalignment: C2, C6 and C7 Thoracic/Lumber: Yes thoracic and lumbar spine normal to inspection, Yes paraspinal tenderness bilaterally in the upper thoracic and in the mid thoracic and on the left greater than right (t horacolumbar), Yes thoraco-lumbar spasm on the right greater than left (upper, trap,levator) and on the left greater than right (lower trap, paraspinal (L2-L5),glute med), Yes Trigger (upper/lower trap) and Yes misalignment T1, T2, T3, T8, T9, L3, L4, L5 and RIL Sacroiliac joints: bilaterally tender to palpation Other: Spasm of R/L peroneal muscles Office Procedures Procedures - Chiropractic Procedures Manipulation: Cervical C2 and C6, Lumbar L4, Thoracic T2 and T8 and Pelvis RIL Manipulation: 3-4 regions Patient Response: positive Dry Needling Patient Position: Prone Patient Instructions/Consent: Patient instructed not to move and informed of risks of moving. Risks associated with the procedure and the specific location were reviewed with the patient and consent was obtained. Procedure: The R/L trap,SOCIAL WELFARE CLERK, R/L peroneal muscle was located by palpation. The skin and surrounding area was inspected and found to be free of any defects. The area was cleaned and prepped. Needle Number: [id number] Minutes: 20 Therapy Performed by: Dr. Dyana Nieves DC Patient Response: Positive Assessment and Plan Assessment and Plan (1) Segmental and somatic dysfunction of cervical region: Status: Acute (2) Segmental and somatic dysfunction of thoracic region: Status: Acute (3) Segmental and somatic dysfunction of lumbar region: Status: Acute (4) Segmental and somatic dysfunction of pelvic region: Status: Acute (5) (more content not included)... Normal [facility] Chiropractic Reporton 2024 Chiropractic Report [facility] [address] [place] [address] OFFICE VISIT Date of Service: 04/18/24 MR#: [id number] Acct: [id number] Name: CHARISSE TSE Rep #: [id number] : 2000 Provider: LUCIEN Sosa Age/Sex: 23/F Location: [facility] [place] Status: Signed Intake Vital Signs 12/10/23 08:15 Height 5 ft 6 in Intake Visit Reasons: DRY NEEDLING/ADJUSTMENT Chief Complaint: Back/ neck pain Allergies No Known Allergies Allergy (Verified 04/18/24 15:44) Medications ???Medication ???Instructions ???Recorded ???Confirmed ???Type Bacillus coagulans-inulin 1 cap PO 04/21/22 04/18/24 History billion cell-250 mg capsule (Probiotic with Prebiotic) cranberry 400 mg capsule 400 mg PO DAILY 04/21/22 04/18/24 History etonogestrel 0.12 mg-ethinyl 1 vag ring vaginal Q4W #3 ea 12/10/23 04/18/24 Rx estradiol 0.015 mg/24 hr vaginal ring (NuvaRing) PFSH Surgical History S/P wisdom tooth extraction Family History Mother Hypertension Grandmother Hypertension Aunt Hypertension Uncle Myocardial infarction Social History Smoking Status: Never smoker alcohol intake: current details: occasionally substance use type: does not use caffeine: No what type of physical activity do you participate in: walking and weight training frequency: 3-4 times per week seatbelt use: always do you feel safe at home: Yes additional social history: Single-Works at [employer] DRY NEEDLING/ADJUSTMENT Chief Complaint: Back pain Visit Number: 1 Details: Charisse Tse 23 yr old F presents here for f/u back and neck pain. Pt. complains of tightness in her neck and her right upper back. Charisse has also been getting HAs from her neck tightness.She al so c/o discomfort in her left knee pain. She notices that it increases when she is running. Her low back has been tight and sore on the right as well. Pt denies new injury, numbness, tingling or radiculopathy. She treats pain and stiffness at home with stretching, yoga and pilates. 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 She recently had a massage which was helpful. She reports chiropractic adjustments and dry needling are effective in relieving her pain and discomfort. Location: Neck/Back Duration: frequent Aggravating or associated factors: Work, standing,running Relieving factors: Chiropractic, yoga Pain Quality: aching and dull Exam Musc General: Yes normal posture, normal gait and joint tenderness; No muscle weakness or decreased range of motion Cervical Spine: Yes normal cervical lordosis, Yes cervical muscular tenderness right greater than left lower , Yes cervical spasm left greater than right diffuse trapezius and other (levator), right upper intrinsics, Yes Trigger (R/L trap,SOCIAL WELFARE CLERK) and Yes misalignment misalignment: C2, C6 and C7 Thoracic/Lumber: Yes thoracic and lumbar spine normal to inspection, Yes paraspinal tenderness bilaterally in the upper thoracic and on the left greater than right (thoracolumbar), Yes thoraco- lumbar spasm on the right greater than left (trap,levator, rhomboids) and on the left greater than right (paraspinal (L2-L5),glute med), Yes Trigger (upper/lower trap) and Yes misalignment T1, T2, T3, T8, T9, L3, L4, L5 and RIL Sacroiliac joints: bilaterally tender to palpation Left Knee Skin/Wound: No erythema and No swelling Contralateral Normal: Yes Swelling: No Quad Atrophy: No KNEE: L Quad/TFL spams with TTP. Office Procedures Procedures - Chiropractic Procedures Manipulation: Cervical C2 and C6, Lumbar L4, Thoracic T2 and T8 and Pelvis LIL Manipulation: 3-4 regions Patient Response: positive Dry Needling Patient Position: Prone Patient Instructions/Consent: Patient instructed not to move and informed of risks of moving. Risks associated with the procedure and the specific location were reviewed with the patient and consent was obtained. Procedure: The R/L: SOCIAL WELFARE CLERK, trap(upper/lower), L Quad was located by palpation. The skin and surrounding area was inspected and found to be free of any defects. The area was cleaned and prepped. Needle Number: [id number] Minutes: 20 Therapy Performed by: Dr. Dyana Nieves DC Patient Response: Positive Assessment and Plan Assessment and Plan (1) Segmental and somatic dysfunction of cervical region: Status: Acute (2) Segmental and somatic dysfunction of thoracic region: Status: Acute (3) Segmental and somatic dysfunction of lumbar region: Status: Acute (4) Segmental and somatic dysfunction of pelvic region: Status: Acute (5) Left knee pain: Status: Acute Qualifiers: Chronicity: acute Twan (more content not included)... Normal [facility]ropractic Reporton 2023 Chiropractic Report [facility] [address] [place] [address] OFFICE VISIT Date of Service: 03/21/24 MR#: [id number] Acct: [id number] Name: CHARISSE TSE Rep #: [id number] : 2000 Provider: LUCIEN Sosa Age/Sex: 23/F Location: [facility] [place] Status: Signed Intake Vital Signs 11/25/23 15:21 12/10/23 08:15 Height 5 ft 6 in 5 ft 6 in Intake Visit Reasons: DRY NEEDLING/ADJUSTMENT Chief Complaint: Back/ neck pain Is patient in pain?: Yes (neck and low back ) Pain scale (1-10): 4 Allergies No Known Allergies Allergy (Verified 03/21/24 14:44) Medications ???Medication ???Instructions ???Recorded ???Confirmed ???Type Bacillus coagulans-inulin 1 cap PO 04/21/22 03/21/24 History billion cell-250 mg capsule (Probiotic with Prebiotic) cranberry 400 mg capsule 400 mg PO DAILY 04/21/22 03/21/24 History etonogestrel 0.12 mg-ethinyl 1 vag ring vaginal Q4W #3 ea 12/10/23 03/21/24 Rx estradiol 0.015 mg/24 hr vaginal ring (NuvaRing) PFSH Surgical History S/P wisdom tooth extraction Family History Mother Hypertension Grandmother Hypertension Aunt Hypertension Uncle Myocardial infarction Social History Smoking Status: Never smoker alcohol intake: current details: occasionally substance use type: does not use caffeine: No what type of physical activity do you participate in: walking and weight training frequency: 3-4 times per week seatbelt use: always do you feel safe at home: Yes additional social history: Single-Works at [employer] DRY NEEDLING/ADJUSTMENT Chief Complaint: Back pain Visit Number: 14 Details: Charisse Tse 23 yr old F presents here for f/u back and neck pain being treated with dry needling and adjustments. Pt. continues to complain of stiffness in her low back equal bilaterally and into her SI joints. She states her neck is also tight rates her pain /10. Pt denies new injury, numbness, tingling or radiculopathy. She reports chiropractic adjustments and dry needling are helpful in relieving her pain and discomfort. She finds that at home stretching, yoga and pilates also help to alleviate some pain. Location: Neck/Back Duration: frequent Aggravating or associated factors: Work, standing Relieving factors: Chiropractic, yoga Pain Quality: aching and dull Exam Musc General: Yes normal posture, normal gait and joint tenderness; No muscle weakness or decreased range of motion Cervical Spine: Yes normal cervical lordosis, Yes cervical muscular tenderness bilateral lower , Yes cervical spasm left greater than right diffuse trapezius and other (levator), right upper intrinsics, Yes Trigger (R/L trap) and Yes misalignment misalignment: C2, C6 and C7 Thoracic/Lumber: Yes thoracic and lumbar spine normal to inspection, Yes paraspinal tenderness bilaterally in the upper thoracic and on the left greater than right (thoracolumbar), Yes thoraco- lumbar spasm on the right greater than left (trap,levator, rhomboids) and on the left greater than right (paraspinal (L2-L5),glute med), Yes Trigger (Llongissimus lumb,L/R glute m) and Yes misalignment T1, T2, T3, T8, T9, L3, L4, L5 and RIL Sacroiliac joints: bilaterally tender to palpation Office Procedures Procedures - Chiropractic Procedures Manipulation: Cervical C2 and C6, Lumbar L4, Thoracic T2 and T8 and Pelvis LIL Manipulation: 3-4 regions Patient Response: positive Dry Needling Patient Position: Prone Patient Instructions/Consent: Patient instructed not to move and informed of risks of moving. Risks associated with the procedure and the specific location were reviewed with the patient and consent was obtained. Procedure: The L longissimus lumb,L/R glute med,R/L trap was located by palpation. The skin and surrounding area was inspected and found to be free of any defects. The area was cleaned and prepped. Needle Number: [id number] Minutes: 20 Therapy Performed by: Dr. Dyana Nieves DC Patient Response: Positive Assessment and Plan Assessment and Plan (1) Segmental and somatic dysfunction of cervical region: Status: Acute (2) Segmental and somatic dysfunction of thoracic region: Status: Acute (3) Segmental and somatic dysfunction of lumbar region: Status: Acute (4) Segmental and somatic dysfunction of pelvic region: Status: Acute Orders: Orders Chiropractic Treatments Today M99.01 - Segmental and somatic dysfunction of cervical region, M99.02 - Segmental and somatic dysfunction of thoracic region, M99.03 - Segmental and somatic dysfunction of lumbar region, M99.05 - Segmental and somatic dysfunction of pelvic region Plan Patient was treated w (more content not included)... Normal [facility] Chiropractic Reporton 2023 Chiropractic Report [facility] [address] [place] [address] OFFICE VISIT Date of Service: 03/07/24 MR#: [id number] Acct: [id number] Name: CHARISSE TSE Rep #: [id number] : 2000 Provider: LUCIEN Sosa Age/Sex: 23/F Location: [facility] [place] Status: Signed Intake Vital Signs 11/25/23 15:21 12/10/23 08:15 Height 5 ft 6 in 5 ft 6 in Intake Visit Reasons: DRY NEEDLING/ADJUSTMENT Chief Complaint: Back/ neck pain Is patient in pain?: Yes (upper back/ neck) Pain scale (1-10): 4 Allergies No Known Allergies Allergy (Verified 03/07/24 14:37) Medications ???Medication ???Instructions ???Recorded ???Confirmed ???Type Bacillus coagulans-inulin 1 cap PO 04/21/22 03/07/24 History billion cell-250 mg capsule (Probiotic with Prebiotic) cranberry 400 mg capsule 400 mg PO DAILY 04/21/22 03/07/24 History etonogestrel 0.12 mg-ethinyl 1 vag ring vaginal Q4W #3 ea 12/10/23 03/07/24 Rx estradiol 0.015 mg/24 hr vaginal ring (NuvaRing) PFSH Surgical History S/P wisdom tooth extraction Family History Mother Hypertension Grandmother Hypertension Aunt Hypertension Uncle Myocardial infarction Social History Smoking Status: Never smoker alcohol intake: current details: occasionally substance use type: does not use caffeine: No what type of physical activity do you participate in: walking and weight training frequency: 3-4 times per week seatbelt use: always do you feel safe at home: Yes additional social history: Single-Works at [employer]PI DRY NEEDLING/ADJUSTMENT Chief Complaint: Back pain Visit Number: 13 Details: Charisse Tse 23 yr old F presents here for f/u back and neck pain being treated with dry needling and adjustments. She complains of tightness and discomfort in back and neck rating around 4/10 in pain. States dry needling helps with pain and discomfort. She finds that at home stretching, yoga and pilates helps to alleviate some pain. 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 Pt denies any new injury, numbness, tingling or radiculopathy. Location: Neck/Back Duration: frequent Aggravating or associated factors: Work, standing Relieving factors: Chiropractor, yoga Pain Quality: aching and dull Exam Musc General: Yes normal posture, normal gait and joint tenderness; No muscle weakness or decreased range of motion Cervical Spine: Yes normal cervical lordosis, Yes cervical muscular tenderness bilateral diffuse , Yes cervical spasm left greater than right diffuse trapezius and other (levator), right upper intrinsics, Yes Trigger (R/L SOCIAL WELFARE CLERK,R/L trap) and Yes misalignment misalignment: C2, C6 and C7 Thoracic/Lumber: Yes thoracic and lumbar spine normal to inspection, Yes paraspinal tenderness bilaterally in the upper thoracic and on the left greater than right (thoracolumbar), Yes thoraco- lumbar spasm on the right greater than left (trap,levator, rhomboids) and on the left greater than right (paraspinal (L2-L5),glute med), Yes Trigger (Llongissimus lumb,L/R glute m) and Yes misalignment T1, T2, T3, T8, T9, L3, L4, L5 and RIL Sacroiliac joints: bilaterally tender to palpation Office Procedures Procedures - Chiropractic Procedures Manipulation: Cervical C2 and C6, Lumbar L4, Thoracic T2 and T8 and Pelvis LIL Manipulation: 3-4 regions Patient Response: positive Dry Needling Patient Position: Prone Patient Instructions/Consent: Patient instructed not to move and informed of risks of moving. Risks associated with the procedure and the specific location were reviewed with the patient and consent was obtained. Procedure: The R/L SOCIAL WELFARE CLERK,R/L trap, R/L glute med was located by palpation. The skin and surrounding area was inspected and found to be free of any defects. The area was cleaned and prepped. Needle Number: [id number] and [id number] Minutes: 20 Therapy Performed by: Dr. Dyana Nieves DC Patient Response: Positive Dry Needling Patient Instructions/Consent: Patient instructed not to move and informed of risks of moving. Risks associated with the procedure and the specific location were reviewed with the patient and consent was obtained. Procedure: The muscle to be treated was located by palpation. The skin and surrounding area was inspected and found to be free of any defects. The area was cleaned and prepped. Assessment and Plan Assessment and Plan (1) Segmental and somatic dysfunction of cervical region: Status: Acute (2) Segmental and somatic dysfunction of thoracic region: Status: Acute (3) Segmental and somatic dysfunction of lumbar region: Statu (more content not included)... Normal [facility]ropractic Reporton 2023 Chiropractic Report [facility] [address] [place] [address] OFFICE VISIT Date of Service: 02/17/24 MR#: [id number] Acct: [id number] Name: CHARISSE TSE Rep #: [id number] : 2000 Provider: LUCIEN Sosa Age/Sex: 23/F Location: [facility] [place] Status: Signed Intake Vital Signs 11/25/23 15:21 12/10/23 08:15 Height 5 ft 6 in 5 ft 6 in Intake Visit Reasons: Back pain Chief Complaint: Neck/Back pain Is patient in pain?: Yes Pain scale (1-10): 4 Allergies No Known Allergies Allergy (Verified 02/17/24 11:31) PFSH Surgical History S/P wisdom tooth extraction Family History Mother Hypertension Grandmother Hypertension Aunt Hypertension Uncle Myocardial infarction Social History Smoking Status: Never smoker alcohol intake: current details: occasionally substance use type: does not use caffeine: No what type of physical activity do you participate in: walking and weight training frequency: 3-4 times per week seatbelt use: always do you feel safe at home: Yes additional social history: Single-Works at [employer] Back pain Chief Complaint: Neck/Back pain Visit Number: 12 Details: Charisse is a 23 y/o female here to f/u on neck and low back pain. Pt. advises that dry needling has been extremely helpful with her discomfort. She has c/o BL tightness and discomfort in her neck and shoulders. Denies any limited ROM or headaches. 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 She also complains of BL low back pain and stiffness that radiates into her SI joints. She rates her overall pain at a 4/10. She has been finding a balance between working out and doing yoga which has helped reduce her discomfort tremendously. She stretches at home, does yoga and Pilates often to stay flexible. She denies new injury, numbness or tingling. Pt. reports chiropractic adjustments and dry needling are effective in relieving her pain and discomfort but it gradually returns. Location: neck and low back Duration: frequent Aggravating or associated factors: standing, sitting,work Relieving factors: chiro,yoga Pain Quality: aching and dull Exam Musc General: Yes normal posture, normal gait and joint tenderness; No muscle weakness or decreased range of motion Cervical Spine: Yes normal cervical lordosis, Yes cervical muscular tenderness bilateral diffuse , Yes cervical spasm left greater than right diffuse trapezius and other (levator), right upper intrinsics, Yes Trigger (R/L SOCIAL WELFARE CLERK,R/L trap) and Yes misalignment misalignment: C2, C6 and C7 Thoracic/Lumber: Yes thoracic and lumbar spine normal to inspection, Yes paraspinal tenderness bilaterally in the upper thoracic and on the left greater than right (thoracolumbar), Yes thoraco- lumbar spasm on the right greater than left (trap,levator, rhomboids) and on the left greater than right (paraspinal (L2-L5),glute med), Yes Trigger (Llongissimus lumb,L/R glute m) and Yes misalignment T1, T2, T3, T8, T9, L3, L4, L5 and RIL Sacroiliac joints: bilaterally tender to palpation Office Procedures Procedures - Chiropractic Procedures Manipulation: Cervical C2 and C6, Lumbar L4, Thoracic T2 and T8 and Pelvis LIL Manipulation: 3-4 regions Patient Response: positive Dry Needling Patient Position: Prone Patient Instructions/Consent: Patient instructed not to move and informed of risks of moving. Risks associated with the procedure and the specific location were reviewed with the patient and consent was obtained. Procedure: The R/L SOCIAL WELFARE CLERK,R/L trap, L lumbar multifidi,R glute med. was located by palpation. The skin and surrounding area was inspected and found to be free of any defects. The area was cleaned and pre pped. Needle Number: [id number] and [id number] Therapy Performed by: Dr. Dyana Nieves DC Patient Response: Positive Dry Needling Patient Instructions/Consent: Patient instructed not to move and informed of risks of moving. Risks associated with the procedure and the specific location were reviewed with the patient and consent was obtained. Procedure: The muscle to be treated was located by palpation. The skin and surrounding area was inspected and found to be free of any defects. The area was cleaned and prepped. Assessment and Plan Assessment and Plan (1) Segmental and somatic dysfunction of cervical region: Status: Acute (2) Segmental and somatic dysfunction of thoracic region: Status: Acute (3) Segmental and somatic dysfunction of lumbar region: Status: Acute (4) Segmental and somatic dysfunction of pelvic region: Status (more content not included)... Normal [facility]rop[facility]ic Reporton 2023 Chiropractic Report [facility] [address] [place], [place] [id number] OFFICE VISIT Date of Service: 02/01/24 MR#: [id number] Acct: [id number] Name: CHARISSE TSE Rep #: [id number] : 2000 Provider: LUCIEN Sosa Age/Sex: 23/F Location: [facility] [place] Status: Signed Intake Vital Signs 11/25/23 15:21 12/10/23 08:15 Height 5 ft 6 in 5 ft 6 in Intake Visit Reasons: Back pain Chief Complaint: Back pain Is patient in pain?: Yes (Neck, LBP) Pain scale (1-10): 4 Allergies No Known Allergies Allergy (Verified 02/01/24 14:30) Medications ???Medication ???Instructions ???Recorded ???Confirmed ???Type Bacillus coagulans-inulin 1 cap PO 04/21/22 02/01/24 History billion cell-250 mg capsule (Probiotic with Prebiotic) cranberry 400 mg capsule 400 mg PO DAILY 04/21/22 02/01/24 History etonogestrel 0.12 mg-ethinyl 1 vag ring vaginal Q4W #3 ea 12/10/23 02/01/24 Rx estradiol 0.015 mg/24 hr vaginal ring (NuvaRing) PFSH Surgical History S/P wisdom tooth extraction Family History Mother Hypertension Grandmother Hypertension Aunt Hypertension Uncle Myocardial infarction Social History Smoking Status: Never smoker alcohol intake: current details: occasionally substance use type: does not use caffeine: No what type of physical activity do you participate in: walking and weight training frequency: 3-4 times per week seatbelt use: always do you feel safe at home: Yes additional social history: Single-Works at [employer] Back pain Chief Complaint: Neck/Back pain Visit Number: 11 Details: Charisse is a 23 y/o female here to f/u on neck and low back pain. Pt. complains of neck pain and states it feels extra tight. The neck pain extends into her shoulders bilaterally. She also complains of low back pain and a constant feeling of pressure. The pain in her left patella is gone. She has been experiencing increased pain in her right wrist due to overuse and change in weather. She rates her overall pain at a 4/10. She was sick and had been sleeping on the couch which exacerbated her pain and stiffness. She has been finding a balance between working out and doing yoga which has helped reduce her discomfort tremendously. She stretches at home, does yoga and Pilates often to stay flexible. She denies new injury, numbness, tingling or radiculopathy. Pt. reports chiropractic adjustments and dry needling are effective in relieving her pain and discomfort but it gradually returns. Location: neck and low back Duration: frequent Aggravating or associated factors: standing, sitting,work Relieving factors: chiro,yoga Pain Quality: aching and dull Exam Musc General: Yes normal posture, normal gait and joint tenderness; No muscle weakness or decreased range of motion Cervical Spine: Yes normal cervical lordosis, Yes cervical muscular tenderness right greater than left diffuse , Yes cervical spasm left greater than right diffuse trapezius and other (levator), right upper intrinsics, Yes Trigger (R/L SOCIAL WELFARE CLERK,R/L trap) and Yes misalignment misalignment: C2, C6 and C7 Thoracic/Lumber: Yes thoracic and lumbar spine normal to inspection, Yes paraspinal tenderness bilaterally in the upper thoracic and on the left greater than right (thoracolumbar), Yes thoraco- lumbar spasm on the right greater than left (trap,levator, rhomboids) and on the left greater than right (paraspinal (L2-L5),glute med), Yes Trigger (Llongissimus lumb,L/R glute m) and Yes misalignment T1, T2, T3, T8, T9, L3, L4, L5 and RIL Sacroiliac joints: bilaterally tender to palpation Right Wrist Date of injury: 01/29/24 Contralateral Normal: Yes Right Wrist: Yes ROM-Extension 0-60 (60), ROM-Flexion 0-80 (80), ROM-Pronation 0-80 (80), ROM- Supination 0-90 (90), Snuffbox tenderness and Trevor's Test Office Procedures Procedures - Chiropractic Procedures Manipulation: Cervical C2 and C6, Lumbar L4, Thoracic T2 and T8 and Pelvis LIL Manipulation: 3-4 regions Extra Spinal Manipulation: 1 region (R wrist) Patient Response: positive Dry Needling Patient Instructions/Consent: Patient instructed not to move and informed of risks of moving. Risks associated with the procedure and the specific location were reviewed with the patient and consent was obtained. Procedure: The muscle to be treated was located by palpation. The skin and surrounding area was inspected and found to be free of any defects. The area was cleaned and prepped. Dry Needling Patient Position: Prone Patient Instructions/Consent: Patient instructed not to move and informed of risks of moving. Risks associated with the procedure a (more content not included)... Normal [facility] Chiropractic Reporton 2023 Chiropractic Report [facility] [address] [place] [address] OFFICE VISIT Date of Service: 01/04/24 MR#: [id number] Acct: [id number] Name: CHARISSE TSE Rep #: [id number] : 2000 Provider: LUCIEN Sosa Age/Sex: 23/F Location: [facility] [place] Status: Signed Intake Vital Signs 11/25/23 15:21 12/10/23 08:15 Height 5 ft 6 in 5 ft 6 in Weight: 149 lb 2 oz BMI 24.0 BP 134/88 H Blood Pressure Location Lt brachial Position Sitting Respiration 17 Pulse 123 H Pulse Source NIBP Temp 98.7 F Temp Source Temporal Pulse Oximetry (%) 98 Oxygen Delivery Method room air Intake Visit Reasons: Back pain Is patient in pain?: Yes Pain scale (1-10): 4 Allergies No Known Allergies Allergy (Verified 01/04/24 13:06) [facility] Surgical History S/P wisdom tooth extraction Family History Mother Hypertension Grandmother Hypertension Aunt Hypertension Uncle Myocardial infarction Social History Smoking Status: Never smoker alcohol intake: current details: occasionally substance use type: does not use caffeine: No what type of physical activity do you participate in: walking and weight training frequency: 3-4 times per week seatbelt use: always do you feel safe at home: Yes additional social history: Single-Works at [employer] HPI Back pain Chief Complaint: Neck/Back pain Visit Number: 10 Details: Charisse is a 23 y/o female here to f/u on neck and low back pain. Pt. advises her neck is tight and sore bilaterally, denies radiculopathy into arms but does get occasional headaches. The pain goes across to BL shoulders. She also complains of low back tightness that is equal bilaterally today. She denies recent back spasms. She is having some pain near her L patella, it has been sore and tight for the past few days. Rates her overall pain at a 4/10. She has been running more often and feels as though this attributes to the knee pain. She stated that she did not get her massage today. She has been finding a balance between working out and doing yoga which has helped reduce her discomfort tremendously. She stretches at home, does yoga and Pilates often to stay flexible. She denies new injury, numbness, tingling or radiculopathy. Pt. reports chiropractic adjustments and dry needling are effective in relieving her pain and discomfort but it gradually returns. Location: neck and low back Duration: frequent Aggravating or associated factors: standing, sitting,work Relieving factors: chiro,yoga Pain Quality: aching and dull Exam Musc General: Yes normal posture, normal gait and joint tenderness; No muscle weakness or decreased range of motion Cervical Spine: Yes normal cervical lordosis, Yes cervical muscular tenderness, Yes cervical spasm left greater than right diffuse trapezius and other (levator), right upper intrinsics, Yes Trigger (R/L SOCIAL WELFARE CLERK,R/L trap) and Yes misalignment misalignment: C2, C6 and C7 Thoracic/Lumber: Yes thoracic and lumbar spine normal to inspection, Yes paraspinal tenderness bilaterally in the upper thoracic and on the left greater than right (thoracolumbar), Yes thoraco- lumbar spasm on the right greater than left (trap,levator, rhomboids) and on the left greater than right (paraspinal (L2-L5),glute med), Yes Trigger (Llongissimus lumb,L/R glute m) and Yes misalignment T1, T2, T3, T8, T9, L3, L4, L5 and RIL Sacroiliac joints: bilaterally tender to palpation Office Procedures Procedures - Chiropractic Procedures Manipulation: Cervical C2 and C6, Lumbar L4, Thoracic T2 and T8 and Pelvis LIL Manipulation: 3-4 regions Patient Response: positive Dry Needling Patient Instructions/Consent: Patient instructed not to move and informed of risks of moving. Risks associated with the procedure and the specific location were reviewed with the patient and consent was obtained. Procedure: The R/L SOCIAL WELFARE CLERK,R/L upper trap, R glute med,L ITBwas located by palpation. The skin and surrounding area was inspected and found to be free of any defects. The area was cleaned and prepped. Needle Number: [id number] Minutes: 30 Therapy Performed by: Dr. Dyana Nieves DC Patient Response: Positive Dry Needling Patient Instructions/Consent: Patient instructed not to move and informed of risks of moving. Risks associated with the procedure and the specific location were reviewed with the patient and consent was obtained. Procedure: The muscle to be treated was located by palpation. The skin and surrounding area was inspected and found to be free of any defects. The area was cleaned and prepped. Assessment and Plan Assessment a (more content not included)... Normal [facility] Chlamydia/GC LUIS aptimaon CHLAMY,NUC ACID Negative Normal Negative [facility] Comment on above: Performed By: #### L 7000.1800 #### [facility] [address] [place], [place], [address] GC BY NUC ACID Negative Normal Negative [facility] Comment on above: Result Comment: Perf ormed at: =G - [facility] [address] [id number] Pharmacy Benefits Coordinator: Zuleima Orozco MD, Phone: [phone] Performed By: #### L 7000.1800 #### [facility] [address] [place], [place], [id number] [facility] Office Visit Reporton 12-10-2023 [facility] Office Visit Report [address], [address] [place] [address] OFFICE VISIT Date of Service: 12/10/23 MR#: [id number] Acct: [id number] Name: CHARISSE TSE Rep #: [id number] : 2000 Provider: MADYSON Markham ams Age/Sex: 23/F Location[place] [facility] [place] Status: Signed Intake Vital Signs 11/13/22 13:33 11/27/22 09:39 08/12/23 13:55 11/25/23 15:21 12/10/23 08:09 12/10/23 08:15 Height 5 ft 6 in 5 ft 6 in 5 ft 6 in 5 ft 6 in 5 ft 6 in 5 ft 6 in Weight: 154 lb BMI 24.8 BP 130/75 H Intake Visit Reasons: Annual ([facility]CHITECT) Chief Complaint: yeast infection a few weeks ago- gone now Is patient in pain?: No Allergies No Known Allergies Allergy (Verified 12/10/23 08:14) Medications ???Medication ???Instructions ???Recorded ???Confirmed ???Type Bacillus coagulans-inulin 1 cap PO 04/21/22 12/07/23 History billion cell-250 mg capsule (Probiotic with Prebiotic) cranberry 400 mg capsule 400 mg PO DAILY 04/21/22 12/07/23 History etonogestrel 0.12 mg-ethinyl 1 vag ring vaginal Q4W #3 ea 12/10/23 12/10/23 Rx estradiol 0.015 mg/24 hr vaginal ring (NuvaRing) fluconazole 150 mg tablet 150 mg PO Q3D 3 doses #3 tabs 12/10/23 12/10/23 Rx Is last menstrual period known: Yes Last Menstrual Period: 11/26/23 Control Method: Nuvaring PFSH Surgical History S/P wisdom tooth extraction Family History Mother Hypertension Grandmother Hypertension Aunt Hypertension Uncle Myocardial infarction Social History Smoking Status: Never smoker alcohol intake: current details: occasionally substance use type: does not use caffeine: No what type of physical activity do you participate in: walking and weight training frequency: 3-4 times per week seatbelt use: always do you feel safe at home: Yes additional social history: Single-Works at [employer] History 0 Elective abortions Hx Para Spontaneous abortions Hx # Term Pregnancies Ectopic pregnancies Hx # Pregnancies Multiple births # of living children HPI Encounter for routine gynecological examination Details: CHARISSE TSE is a 23 year old who presents for annual exam. Had yeast infection a few weeks ago and was treated at an urgent care. Had one dose of diflucan. Still feels as though it is still there. Last PAP: 2021 History of abnormal PAP: na Last mammogram: Age 40 History of abnormal mammogram: na Colon cancer screening: Age 45 Other preventative health care screenings: PCP Female Reproductive History Last Menstrual Period: 11/26/23 Cycle Length: 21-35 Bleeding Duration: 4 Questions: metorrhagia: No, sexually active: Yes, dyspareunia: No and PCB: No ROS Const Constitutional: Reports system reviewed and no additional complaints, except as documented Cardio Card: Reports system reviewed and no additional complaints, except as documented Resp Resp: Reports system reviewed and no additional complaints, except as documented GI GI: Reports system reviewed and no additional complaints, except as documented : Reports system reviewed and no additional complaints, except as documented; Denies difficulty voiding, dysuria or urinary frequency Skin Skin/Breast: Reports system reviewed and no additional complaints, except as documented Neuro Neuro: Reports system reviewed and no additional complaints, except as documented Psych Psych: Reports system reviewed and no additional complaints, except as documented; Denies anhedonia, anxiety or depression Exam Const General: cooperative, healthy appearing, comfortable and no acute distress Orientation: alert, awake and oriented x3 Neck Neck: normal visual inspection and full ROM Thyroid: thyroid normal Chest Breast inspection: normal inspection of the breasts and normal inspection of the axillae Breast palpation: normal palpation of the breasts and normal palpation of the axillae Resp Effort Inspection: normal respiratory effort, able to speak in complete sentences and symmetric chest movement GI Inspection: normal to inspection Palpation: soft Rectal Exam: visual inspection normal External Female Exam: normal external appearance and normal appearance of the urethra Urethra: normal appearance of the urethra Speculum Exam - Vagina: normal appearance of the vagina and abnormal vaginal discharge (thick/chunky) white Speculum Exam - Cervix: normal appearance of the cervix and nontender Bimanual Exam- Vagina Uterus: normal bimanual exam, normal palpation, uterine size normal, No tender and non-tender Bimanual Exam- Adnexa, other: normal Pelvic Support: normal Skin General: n (more content not included)... Normal [facility] Chiropractic Reporton 2023 Chiropractic Report [facility] [address] [place] [address] OFFICE VISIT Date of Service: 12/07/23 MR#: [id number] Acct: [id number] Name: CHARISSE TSE Rep #: [id number] : 2000 Provider: LUCIEN Sosa Age/Sex: 23/F Location: [facility] [place] Status: Signed Intake Vital Signs 08/12/23 13:55 11/25/23 15:21 Height 5 ft 6 in 5 ft 6 in Intake Visit Reasons: Back pain Chief Complaint: neck and low back pain Allergies No Known Allergies Allergy (Verified 12/07/23 11:40) Medications ???Medication ???Instructions ???Recorded ???Confirmed ???Type Bacillus coagulans-inulin 1 cap PO 04/21/22 12/07/23 History billion cell-250 mg capsule (Probiotic with Prebiotic) cranberry 400 mg capsule 400 mg PO DAILY 04/21/22 12/07/23 History etonogestrel 0.12 mg-ethinyl 1 vag ring vaginal Q4W #3 ea 04/16/23 12/07/23 Rx estradiol 0.015 mg/24 hr vaginal ring (NuvaRing) fluconazole 200 mg tablet 200 mg PO DAILY #1 TAB 11/25/23 12/07/23 Rx PFSH Surgical History S/P wisdom tooth extraction Family History Mother Hypertension Grandmother Hypertension Aunt Hypertension Uncle Myocardial infarction Social History Smoking Status: Never smoker alcohol intake: current details: occasionally substance use type: does not use caffeine: No what type of physical activity do you participate in: walking and weight training frequency: 3-4 times per week seatbelt use: always do you feel safe at home: Yes additional social history: Single-Works at [employer] HPI Back pain Chief Complaint: Neck/Back pain Visit Number: 9 Details: Charisse is a 23 y/o female here to f/u on neck and low back pain. Pt. advises her neck is tight and also c/o stiffness across her shoulder blades bilaterally. She also complains of low back tightness that is worse on the left side. She denies recent back spasms. She cancelled her massage last week. She has been finding a balance between working out and doing yoga which has helped reduce her discomfort tremendously. 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 She stretches at home, does yoga and Pilates often to stay flexible. She denies new injury, numbness, tingling or radiculopathy. Pt. reports chiropractic adjustments and dry needling are effective in relieving her pain and discomfort but it gradually returns. Location: neck and low back Duration: frequent Aggravating or associated factors: standing, sitting,work Relieving factors: chiro,yoga Pain Quality: aching and dull Exam Musc General: Yes normal posture, normal gait and joint tenderness; No muscle weakness or decreased range of motion Cervical Spine: Yes normal cervical lordosis, Yes cervical muscular tenderness left greater than right diffuse , Yes cervical spasm left greater than right diffuse trapezius and other (levator), right upper intrinsics, Yes Trigger (R/L levator) and Yes misalignment misalignment: C2, C6 and C7 Thoracic/Lumber: Yes thoracic and lumbar spine normal to inspection, Yes paraspinal tenderness bilaterally in the upper thoracic and on the left greater than right (thoracolumbar), Yes thoraco- lumbar spasm on the right greater than left (trap,levator, rhomboids) and on the left greater than right (paraspinal (L2-L5),glute med), Yes Trigger (Llongissimus lumb,L/R glute m) and Yes misalignment T1, T2, T3, T8, T9, L3, L4, L5 and RIL Sacroiliac joints: bilaterally tender to palpation Office Procedures Procedures - Chiropractic Procedures Manipulation: Cervical C2 and C6, Lumbar L4, Thoracic T2 and T8 and Pelvis LIL Manipulation: 3-4 regions Patient Response: positive Dry Needling Patient Position: Prone Patient Instructions/Consent: Patient instructed not to move and informed of risks of moving. Risks associated with the procedure and the specific location were reviewed with the patient and consent was obtained. Procedure: The cervical multifidiR/L, upper trap, middle trap, L multifidi lumbar was located by palpation. The skin and surrounding area was inspected and found to be free of any defects. The area was cleaned and prepped. Needle insertion and removal was normal. Pressure was applied as needed. Needle Number: [id number] Minutes: 20 Therapy Performed by: Dr. Dyana Nieves DC Patient Response: Positive Assessment and Plan Assessment and Plan (1) Segmental and somatic dysfunction of cervical region: Status: Acute (2) Segmental and somatic dysfunction of thoracic region: Status: Acute (3) Segmental and somatic dysfunction of lumbar region: Status: Acute (4) Segmental and s (more content not included)... Normal [facility] Urgent Care Visit Reporton 0 11-25-2023 Urgent Care Visit Report [facility] [address], [address] [place] [address] OFFICE VISIT Date of Service: 11/25/23 MR#: [id number] Acct: [id number] Name: CHARISSE TSE Rep #: [id number] : 2000 Provider: JAVIER Meléndez Age/Sex: 23/F Location: [facility] [place] Status: Signed Intake Vital Signs 08/12/23 13:55 11/25/23 15:21 Height 5 ft 6 in 5 ft 6 in Weight: 149 lb 2 oz BMI 24.0 BP 134/82 H 134/88 H Blood Pressure Location Lt radial Lt brachial Position Sitting Respiration 17 Pulse 123 H Pulse Source NIBP Temp 98.7 F Temp Source Temporal Pulse Oximetry (%) 98 Oxygen Delivery Method room air Intake Visit Reasons: YEAST INFECTION Chief Complaint: vaginal itching/discharge Lifestyle Director Required: No Is patient in pain?: No Allergies No Known Allergies Allergy (Verified 11/25/23 15:22) Is last menstrual period known: No Post menopausal: No Patient : No Have you fallen in the past year?: No Nurse's Note: vaginal itching/discharge x 3 days. frequent yeast infections and feels the same. denies abd pain/ fevers/odor. PFSH Surgical History S/P wisdom tooth extraction Family History Mother Hypertension Grandmother Hypertension Aunt Hypertension Uncle Myocardial infarction Social History Smoking Status: Never smoker alcohol intake: current details: occasionally substance use type: does not use caffeine: No what type of physical activity do you participate in: walking and weight training frequency: 3-4 times per week seatbelt use: always do you feel safe at home: Yes additional social history: Single-Works at [employer] HPI Chief Complaint: vaginal itching/discharge Details: CHARISSE TSE, is a 23 F who presents to the office today for initial evaluation 2-3 history of progressively worsening thick curdy white pruritic vaginal discharge, stating she has a history of chronic recurrent vaginal Lia typically brought on with intercourse with her significant other she is a states. She notes no thin clear sticky nor purulent green-yellow vaginal discharge; no complaints of dysuria or urinary frequency or suprapubic pain. No mid back complaints. No complaints of chest pain/shortness of breath/dyspnea on exertion. No other associated symptoms and no leaving/aggravating factors. ROS Const Constitutional: No other (As above) Exam Const General: cooperative, healthy appearing and no acute distress Nutritional Appearance: average body habitus Orientation: alert, awake and oriented x3 Resp Effort Inspection: normal respiratory effort and able to speak in complete sentences Auscultation: Bilateral: Clear to Auscultation Cardio Palpation: normal PMI Rate: regular rate Rhythm: regular rhythm Heart Sounds: S1 normal, S2 normal, no gallops, no murmurs and no rubs Pulses: radial pulses present GI Inspection: normal to inspection General: No CVA tenderness Skin General: no rashes or lesions noted Neuro General: patient alert and patient awake Cognition: normal cognition Speech: speech normal Psych Appearance: grossly normal Mental Status: mental status grossly normal Mood: congruent mood Affect: normal affect Speech and Movement: speech and movement normal Attitude: cooperative Coding Level of Care Code Off vis,new,level 3 Diagnoses Recurrent candidiasis of vagina B37.3 Assessment and Plan Assessment and Plan (1) Recurrent candidiasis of vagina: Status: Acute Comment: diflucan x 6 months Plan: Fluconazole as prescribed today. Supportive measures as instructed today. Follow-up with C ARCHIT[facility] for reassessment and continuation of care. Patient states acknowledging understanding all the above. This note was generated with [employer] dictation software. It may contain incorrect words, spelling, and punctuation that were not noted in checking the note before signing. Medications: New fluconazole 200 mg PO DAILY 1 TAB 0RF Plan Details Goals Barriers: Goals Decrease trigger pts/spasm Decrease pain Improve mobility Clinical Quality Measures Falls Risk Screening/Assistive Devices Have you fallen in the past year?: No 11/25/23 1533 Date Dante Alexandra Signature: Date (if applicable) CC: Normal [facility] Chiropractic Reporton 2023 Chiropractic Report [facility] [address] [place] [address] OFFICE VISIT Date of Service: 11/09/23 MR#: [id number] Acct: [id number] Name: CHARISSE TSE Rep #: [id number] : 2000 Provider: LUCIEN Sosa Age/Sex: 23/F Location: [facility] [place] Status: Signed Intake Vital Signs 08/12/23 13:55 Height 5 ft 6 in BP 134/82 H Blood Pressure Location Lt radial Intake Visit Reasons: Back pain Chief Complaint: Neck/Back pain Allergies No Known Allergies Allergy (Verified 11/09/23 11:11) Medications ???Medication ???Instructions ???Recorded ???Confirmed ???Type Bacillus coagulans-inulin 1 cap PO 04/21/22 11/09/23 History billion cell-250 mg capsule (Probiotic with Prebiotic) cranberry 400 mg capsule 400 mg PO DAILY 04/21/22 11/09/23 History etonogestrel 0.12 mg-ethinyl 1 vag ring vaginal Q4W #3 ea 04/16/23 11/09/23 Rx estradiol 0.015 mg/24 hr vaginal ring (NuvaRing) PFSH Surgical History S/P wisdom tooth extraction Family History Mother Hypertension Grandmother Hypertension Aunt Hypertension Uncle Myocardial infarction Social History Smoking Status: Never smoker alcohol intake: current details: occasionally substance use type: does not use caffeine: No what type of physical activity do you participate in: walking and weight training frequency: 3-4 times per week seatbelt use: always do you feel safe at home: Yes additional social history: Single-Works at [employer] HPI Back pain Chief Complaint: Neck/Back pain Visit Number: 8 Details: Charisse is a 23 y/o female here to f/u on neck and low back pain. Pt. complains of stiffness across her shoulder blades bilaterally. She is experiencing stiffness in her traps bilaterally that extends into her upper back. She also complains of low back tightness that is worse on the left side. She denies recent back spasms. Pt. just had a massage before coming in. She has been finding a balance between working out and doing yoga which has helped reduce her discomfort tremendously. 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 She stretches at home ,does yoga and Pilates often to stay flexible. She denies new injury, numbness, tingling or radiculopathy. Pt. reports chiropractic adjustments and dry needling are effective in relieving her pain and discomfort but it gradually returns. Location: neck and low back Duration: frequent Aggravating or associated factors: standing, sitting,work Relieving factors: chiro,yoga Pain Quality: aching and dull Exam Musc General: Yes normal posture, normal gait and joint tenderness; No muscle weakness or decreased range of motion Cervical Spine: Yes normal cervical lordosis, Yes cervical muscular tenderness bilateral lower , Yes cervical spasm left greater than right diffuse trapezius and other (levator), right upper intrinsics, Yes Trigger (R/L levator) and Yes misalignment misalignment: C2, C6 and C7 Thoracic/Lumber: Yes thoracic and lumbar spine normal to inspection, Yes paraspinal tenderness bilaterally in the upper thoracic and on the left greater than right (thoracolumbar), Yes thoraco- lumbar spasm on the right greater than left (trap,levator, rhomboids) and on the left greater than right (paraspinal (L2-L5),glute med), Yes Trigger (Llongissimus lumb,L/R glute m) and Yes misalignment T1, T2, T3, T8, T9, L3, L4, L5 and RIL Sacroiliac joints: bilaterally tender to palpation Office Procedures Procedures - Chiropractic Procedures Manipulation: Cervical C2 and C6, Lumbar L4, Thoracic T2 and T8 and Pelvis LIL Manipulation: 3-4 regions Patient Response: positive Dry Needling Patient Position: Prone Patient Instructions/Consent: Patient instructed not to move and informed of risks of moving. Risks associated with the procedure and the specific location were reviewed with the patient and consent was obtained. Procedure: The R/L trap/levator scap, L lumbar multifidi, R glute medius was located by palpation. The skin and surrounding area was inspected and found to be free of any defects. The area was cleaned and prepped. Needle Number: [id number] Minutes: 30 Therapy Performed by: Dr. Dyana Nieves DC Patient Response: Positive Assessment and Plan Assessment and Plan (1) Back pain: Status: Acute Qualifiers: Back pain laterality: left Back pain location: low back pain Chronicity: acute Sciatica presence: without sciatica Qualified Code(s): M54.50 - Low back pain, unspecified (2) Segmental and somatic dysfunction of cervical region: Status: Acute (3) Segmental and somatic dysfunction of thor (more content not included)... Normal [facility] Chiropractic Reporton 2023 Chiropractic Report [facility] [address] [place] [id number] OFFICE VISIT Date of Service: 10/12/23 MR#: [id number] Acct: [id number] Name: CHARISSE TSE Rep #: [id number] : 2000 Provider: LUCIEN Sosa Age/Sex: 23/F Location: [facility] [place] Status: Signed Intake Vital Signs 08/12/23 13:55 Height 5 ft 6 in BP 134/82 H Blood Pressure Location Lt radial Intake Visit Reasons: Back pain Chief Complaint: Neck/Back pain Is patient in pain?: Yes (Neck, Left low back) Pain scale (1-10): 3 Allergies No Known Allergies Allergy (Verified 10/12/23 13:28) Medications ???Medication ???Instructions ???Recorded ???Confirmed ???Type Bacillus coagulans-inulin 1 cap PO 04/21/22 10/12/23 History billion cell-250 mg capsule (Probiotic with Prebiotic) cranberry 400 mg capsule 400 mg PO DAILY 04/21/22 10/12/23 History etonogestrel 0.12 mg-ethinyl 1 vag ring vaginal Q4W #3 ea 04/16/23 10/12/23 Rx estradiol 0.015 mg/24 hr vaginal ring (NuvaRing) PFSH Surgical History S/P wisdom tooth extraction Family History Mother Hypertension Grandmother Hypertension Aunt Hypertension Uncle Myocardial infarction Social History Smoking Status: Never smoker alcohol intake: current details: occasionally substance use type: does not use caffeine: No what type of physical activity do you participate in: walking and weight training frequency: 3-4 times per week seatbelt use: always do you feel safe at home: Yes additional social history: Single-Works at [employer] Back pain Chief Complaint: Neck/Back pain Visit Number: 7 Details: Charisse is a 23 y/o female here to f/u on neck and low back pain. She complains of neck pain and stiffness. She also complains of pain in her traps bilaterally that radiates into her upper back. She also complains of low back pain that is worse on the left side. She has been experiencing spasms in her left low back into her SI joint. She rates her pain 3/10 today. She has been finding a balance between working out and doing yoga which has helped reduce her discomfort tremendously. 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 She stretches at home and does yoga and Pilates often to stay flexible. Pt. reports chiropractic adjustments and dry needling are effective in relieving her pain and discomfort but it gradually returns. She denies new injury, numbness, tingling or radiculopathy. Location: neck and low back Duration: frequent Aggravating or associated factors: standing, sitting,work Relieving factors: chiro,yoga Pain Quality: aching and dull Exam Musc General: Yes normal posture, normal gait and joint tenderness; No muscle weakness or decreased range of motion Cervical Spine: Yes normal cervical lordosis, Yes cervical muscular tenderness right upper , bilateral lower , Yes cervical spasm left greater than right diffuse trapezius, right upper intrinsics, Yes Trigger (R SOCIAL WELFARE CLERK) and Yes misalignment misalignment: C2, C6 and C7 Thoracic/Lumber: Yes thoracic and lumbar spine normal to inspection, Yes paraspinal tenderness bilaterally in the upper thoracic and on the left greater than right (thoracolumbar), Yes thoraco- lumbar spasm on the right greater than left (trap) and on the left greater than right (paraspinal (L2-L5),glute med), Yes Trigger (Llongissimus lumb,L/R glute m) and Yes misalignment T1, T2, T3, T8, T9, L3, L4, L5 and RIL Sacroiliac joints: bilaterally tender to palpation Office Procedures Procedures - Chiropractic Procedures Manipulation: Cervical C2 and C6, Lumbar L4, Thoracic T2 and T8 and Pelvis LIL Manipulation: 3-4 regions Patient Response: positive Dry Needling Patient Instructions/Consent: Patient instructed not to move and informed of risks of moving. Risks associated with the procedure and the specific location were reviewed with the patient and consent was obtained. Procedure: The muscle to be treated was located by palpation. The skin and surrounding area was inspected and found to be free of any defects. The area was cleaned and prepped. Dry Needling Patient Position: Prone Patient Instructions/Consent: Patient instructed not to move and informed of risks of moving. Risks associated with the procedure and the specific location were reviewed with the patient and consent was obtained. Procedure: The Llongissimus lumb,L/R glute medius, L piriformis was located by palpation. The skin and surrounding area was inspected and found to be free of any defects. The area was cleaned and prepped. Needle Number: [id number] and .[id number] (more content not included)... Normal [facility] Chlamydia trachomatis rRNA d etection by probe and target amplification methodOrdered By: Rebecca Whiteside on 11-13-2022 C. trachomatis rRNA LUIS+probe Ql (Unsp spec) Negative Negative [facility] Gram stain for investigation of transfusion reactionOrdered By: Rebecca Whiteside on 11-13-2022 Microscopic observation Gram stain Nom (Unsp spec) [facility] HIV 1 and HIV-2 antibody ass ay with HIV-1 p24 antigen detectionOrdered By: Rebecca Whiteside on 11-13-2022 HIV 1+2 Ab+HIV1 p24 Ag IA Ql Non-Reactive Nonreactive [facility] Laboratory - Microbiology an d Antimicrobial susceptibilityOrdered By: Rebecca Whiteside on 11-13-2022 N. gonorrhoeae DNA LUIS+probe Ql (Unsp spec) Negative Negative [facility] Comment on above: Performed at: =[address] [id number] Director: Zuleima Orozco MD, Phone: [phone] No Panel InformationOrdered By: Rebecca Whiteside on 11-13-2022 Hepatitis B Surface Antigen Non-Reactive Nonreactive [facility] Hepatitis C Antibody Non-Reactive Nonreactive [facility] Comment on above: Non Reactive: < 0.8 Equivocal: >/= 0.8 to < 1.0 Reactive: >/= 1.0The CDC recommends that a reactive/equivocal HCV antibody result be followed up by the HCV Nucleic Acid Amplificationtest (514001) Herpes Simplex Virus I IgG Antibody 41.90 index 0.00-0.90 [facility] Comment on above: Negative <0.91 Equiv ocal 0.91 - 1.09 Positive >1.09 Note: Negative indicates no antibodies detected to HSV-1. Equivocal may suggest early infection. If clinically appropriate, retest at later date. Positive indicates antibodies detected to HSV-1. No Panel Informationon 11-13 POC Bacterial Vaginitis (Rapid) Negative [facility] POC Trichomonas (Rapid) Negative [facility] Serum Treponema species anti body detectionOrdered By: Rebecca Whiteside on 11-13-2022 Treponema sp Ab Ql (S) Non-Reactive [facility] Serum herpes simplex virus 2 antibody assay by immunoassay (units/volume)Ordered By: Rebecca Whiteside on 11-13-2022 HSV 2 Ab IA Qn (S) < 0.91 index 0.00-0.90 [facility] Comment on above: Negative <0.91 Equiv ocal 0.91 - 1.09 Positive >1.09Note: Negative indicates no HSV-2 antibodies detected.Positive indicates HSV-2 antibodies detected.Equivocal and low positive HSV-2 screens(Index 0.91-5.00) may be false positive and arereflexed to supplemental testing in accordance with[facility] guidelines.Effective December 08, 2022, this profilewill be made non-orderable due to the discontinuationof reagents by the assistant drafter. Supplemental testingof specimens with low-positive HSV-2 type-specificIgG antibody test results can no longer be performed.[facility] Offers: [id number] HSV-2 Ab, IgG, [id number] HSV 1and 2 Ab, IgG, and [id number] Prenat Infect Dis Ab, IgG.Performed at: [address] [id number] Director: Brien Zamorano PhD, Phone: [phone] Thin prep Papanicolaou smear with manual screeningOrdered By: Rebecca Whiteside on 11-13-2022 Genital Culture Streptococcus group B [facility] Chlamydia trachomatis rRNA d etection by probe and target amplification methodOrdered By: Talisha Mcnair on 04-21-2022 C. trachomatis rRNA LUIS+probe Ql (Unsp spec) Negative Negative [facility] HIV 1 and HIV-2 antibody ass ay with HIV-1 p24 antigen detectionOrdered By: Talisha Mcnair on 04-21-2022 HIV 1+2 Ab+HIV1 p24 Ag IA Ql Non-Reactive Nonreactive [facility] Laboratory - Microbiology an d Antimicrobial susceptibilityOrdered By: Talisha Mcnair on 04-21-2022 N. gonorrhoeae DNA LUIS+probe Ql (Unsp spec) Negative Negative [facility] Comment on above: Performed at: [facility] [address] [id number] Director: Zuleima Orozco MD, Phone: [phone] No Panel InformationOrdered By: Talisha Mcnair on 04-21-2022 Herpes Simplex Virus I IgG Antibody 41.10 index 0.00-0.90 [facility] Comment on above: Negative <0.91 Equiv ocal 0.91 - 1.09 Positive >1.09 Note: Negative indicates no antibodies detected to HSV-1. Equivocal may suggest early infection. If clinically appropriate, retest at later date. Positive indicates antibodies detected to HSV-1. Serum Treponema species anti body detectionOrdered By: Talisha Mcnair on 04-21-2022 Treponema sp Ab Ql (S) Non-Reactive [facility] Serum herpes simplex virus 2 antibody assay by immunoassay (units/volume)Ordered By: Talisha Mcnair on 04-21-2022 HSV 2 Ab IA Qn (S) < 0.91 index 0.00-0.90 [facility] Comment on above: Negative <0.91 Equiv ocal 0.91 - 1.09 Positive >1.09 Note: Negative indicates no HSV-2 antibodies detected. Positive indicates HSV-2 antibodies detected. Equivocal and low positive HSV-2 screens (Index 0.91-5.00) may be false positive and are reflexed to supplemental testing in accordance with CDC guidelines.Performed at: [facility] Lab[address] [id number] Director: Brien Zamorano PhD, Phone: [phone] Thin prep Papanicolaou smear with manual screeningOrdered By: Shwetha Sibley on 01-30-2022 Thin prep Papanicolaou smear with manual screening Neisseria or beta-hemolytic Streptococcus isolated. [facility] Gram stain for investigation of transfusion reactionOrdered By: Shwetha Sibley on 01-28-2022 Microscopic observation Gram stain Nom (Unsp spec) [facility] Basophil percentageOrdered B y: Shwetha Sibley on 01-27-2022 Basophil percentage 0-5 SEEN /hpf 0-5 [facility] Bilirubin Test strip Ql (U)O rdered By: Shwetha Sibley on 01-27-2022 Bilirubin Ql (U) Negative Negative [facility] Cervical or vagninal specime n microscopic examination by cytology stain (reported asOrdered By: Shwetha Sibley on 01-27-2022 Cytology report Cyto stain Doc (Cvx/Vag) Comment . [facility] Comment on above: The Pap smear is a s creening test designed to aid in thedetection of premalignant and malignant conditions of theuterine cervix. It is not a diagnostic procedure andshould not be used as the sole means of detecting cervicalcancer. Both false-positive and false-negative reports dooccur. Chlamydia trachomatis rRNA d etection by probe and target amplification methodOrdered By: Shwetha Sibley on 01-27-2022 C. trachomatis rRNA LUIS+probe Ql (Unsp spec) Positive Negative [facility] Comment on above: RESULTS CALLED TO Eugenia Conklin 01/30/22 [address].REPORT READ BACK BY SAME. Ketones Test strip Ql (U)Ord ered By: Shwetha Sibley on 01-27-2022 Ketones Ql (U) Negative Negative [facility] Laboratory - Chemistry and C hemistry - challengeon 01-27-2022 Bilirubin Ql (U) Negative [facility] Glucose Ql (U) Negative [facility] Ketones Ql (U) Negative [facility] pH (U) 5.0 [pH] [facility] Specific gravity (U) [Rel density] 1.025 [facility] Urobilinogen (U) [Mass/Vol] Negative [facility] Laboratory - CytologyOrdered By: Shwetha Sibley on 01-27-2022 Gelatin Maker Utility Cyto stain Nom (Cvx/Vag) [ID] Comment . [facility] Comment on above: Luis Alberto Reynolds, Electrician Supervisor [employer] (ASCP) Laboratory - Hematology and Cell countson 01-27-2022 Hemoglobin Ql (U) Large [facility] Laboratory - Microbiology an d Antimicrobial susceptibilityOrdered By: Shwetha Sibley on 01-27-2022 N. gonorrhoeae DNA LUIS+probe Ql (Unsp spec) Negative Negative [facility] Comment on above: Performed at: =[facility] [address] [id number] Director: Zuleima Orozco MD, Phone: [phone] Laboratory - Miscellaneous t estsOrdered By: Shwetha Sibley on 01-27-2022 Service comment (Unsp spec) [Interp] Comment . [facility] Comment on above: This liquid based Th inPrep(R) pap test was screened withthe use of an image guided system. Service comment (Unsp spec) [Interp] . . [facility] Laboratory - Specimen inform ationon 01-27-2022 Clarity (U) Hazy [facility] Color (U) Yellow [facility] Laboratory - Urinalysison Nitrite Ql (U) Negative [facility] Protein Ql (U) 1+ [facility] Mucus LM Ql (Urine sed)Order ed By: Shwetha Sibley on 01-27-2022 Mucus Ql (Urine sed) 0 SEEN /hpf [facility] Nitrite Test strip Ql (U)Ord ered By: Shwetha Sibley on 01-27-2022 Nitrite Ql (U) Negative Negative [facility] No Panel InformationOrdered By: Shwetha Sibley on 01-27-2022 Human Papillomavirus Screen Comment . [facility] Comment on above: The HPV DNA reflex c riteria were not met with this specimenresult therefore, no HPV testing was performed.Performed at: [address] [id number] Director: Zuleima Orozco MD, Phone: [phone] Pathology report final diagnosis Narrative Comment . [facility] Comment on above: NEGATIVE FOR INTRAEP ITHELIAL LESION OR MALIGNANCY. No Panel Informationon 01-27 POC Bacterial Vaginitis (Rapid) Negative [facility] POC Trichomonas (Rapid) Negative [facility] Urine Leukocytes Negatve [facility] Urine Non-Hemolyzed Blood [facility] Protein Test strip Ql (U)Ord ered By: Shwetha Sibley on 01-27-2022 Protein Ql (U) Negative Negative [facility] Squamous epithelial cells de tection in urine sediment by light microscopyOrdered By: Shwetha Sibley on 01-27-2022 Epithelial cells.squamous LM Ql (Urine sed) 0 SEEN /hpf 5-10 [facility] Urine blood detectionOrdered By: Shwetha Sibley on 01-27-2022 RBC Ql (U) 150 /ul Negative [facility] RBC Ql (U) 0 SEEN /hpf 0-5 [facility] Urine clarityOrdered By: Frances Sibley on 01-27-2022 Clarity (U) Clear Clear [facility] Urine color determinationOrd ered By: Shwetha Sibley on 01-27-2022 Color (U) Yellow Yellow [facility] Urine glucose detectionOrder ed By: Shwetha Sibley on 01-27-2022 Glucose Ql (U) Normal mg/dl Normal [facility] Urine leukocyte esterase det ection by dipstickOrdered By: Shwetha Sibley on 01-27-2022 Leukocyte esterase Test strip Ql (U) 25 /ul Negative [facility] Urine pHOrdered By: Shwetha temple on 01-27-2022 pH (U) 7.0 [pH] 5.0 - 8.0 [facility] Urine sediment bacteria coun t by microscopy (number/high power field)Ordered By: Shwetha Sibley on 01-27-2022 Bacteria LM.HPF (Urine sed) [#/Area] 0 /[HPF] None Seen [facility] Urine specific gravity measu rementOrdered By: Shwetha Sibley on 01-27-2022 Specific gravity (U) [Rel density] 1.005 1.002-1.030 [facility] Urobilinogen Auto test strip Ql (U)Ordered By: Shwetha Sibley on 01-27-2022 Urobilinogen Ql (U) Normal mg/dl Normal [facility] Culture, urineOrdered By: Gutierrez Sibley on 01-17-2022 Bacteria identified Cx Nom (U) Presumptive E. coli [facility] Laboratory - Chemistry and C hemistry - challengeon 01-15-2022 Bilirubin Ql (U) Negative [facility] Glucose Ql (U) Negative [facility] Ketones Ql (U) Negative [facility] pH (U) 5 [pH] [facility] Specific gravity (U) [Rel density] 1.020 [facility] Urobilinogen (U) [Mass/Vol] Negative [facility] Laboratory - Hematology and Cell countson 01-15-2022 Hemoglobin Ql (U) Moderate [facility] Laboratory - Specimen inform ationon 01-15-2022 Clarity (U) Clear [facility] Color (U) [place] [facility] Laboratory - Urinalysison Nitrite Ql (U) Negative [facility] Protein Ql (U) Negative [facility] No Panel Informationon 01-15 Urine Leukocytes Positive [facility] Culture, urine Bacteria identified Cx Nom (U) Presumptive E. coli [facility] Work Phone: Gram stain for investigation of transfusion reaction Microscopic observation Gram stain Nom (Unsp spec) [facility] Work Phone: Thin prep Papanicolaou smear with manual screening Cytopathology procedure, preparation of smear, genital source Neisseria or beta-hemolytic Streptococcus isolated. [facility] Work Phone: Vital Signs Date Time Vital Sign Value Performing Clinician Faci lity 08-09-2024 10:33-0400 Body height 167.[address] Orlando West MD Work Phone: [facility] 08-09-2024 10:32-0400 Body mass index (BMI) [Ratio] 24.4 kg/m2 Dr. Orlando West MD Work Phone: [facility] 08-09-2024 10:32-0400 Body weight 68.[address] Orlando West MD Work Phone: [facility] 08-09-2024 10:32-0400 Diastolic blood pressure 69 mm[Hg] Dr. Orlando West MD Work Phone: [facility] 08-09-2024 10:32-0400 Systolic blood pressure 128 mm[Hg] Dr. Orlando West MD Work Phone: [facility] 07-15-2024 14:52-0400 Body height 167.[address] Orlando West MD Work Phone: [facility] 07-15-2024 14:52-0400 Body mass index (BMI) [Ratio] 25.3 kg/m2 Dr. Orlando West MD Work Phone: [facility] 07-15-2024 14:52-0400 Body weight 71.[address] Orlando West MD Work Phone: [facility] 07-15-2024 14:52-0400 Diastolic blood pressure 96 mm[Hg] Dr. Oralndo West MD Work Phone: [facility] 07-15-2024 14:52-0400 Heart rate 113 /min Dr. Orlando West MD Work Phone: [facility] 07-15-2024 14:52-0400 SaO2% (BldA) [Mass fraction] 98 % Dr. Orlando West MD Work Phone: [facility] 07-15-2024 14:52-0400 Systolic blood pressure 136 mm[Hg] Dr. Orlando West MD Work Phone: 6(074)367-804245 [place] [address] 11-13-2022 13:33-0400 Body height 167.[address] Ken West Work Phone: 0(579)134-734745 [place] [address] 11-13-2022 13:33-0400 Body mass index (BMI) [Ratio] 28.8 kg/m2 Dr. Ken West Work Phone: 6(582)088-996447 [place] [address] 11-13-2022 13:33-0400 Body weight 80.[address] Ken West Work Phone: 2(349)477-844045 [place] [address] 11-13-2022 13:33-0400 Diastolic blood pressure 84 mm[Hg] Dr. Ken West Work Phone: 3(365)405-601547 [place] [address] 11-13-2022 13:33-0400 Heart rate 82 /min Dr. Ken West Work Phone: [facility] 11-13-2022 13:33-0400 Respiratory rate 17 /min Dr. Ken West Work Phone: [facility] 11-13-2022 13:33-0400 Systolic blood pressure 127 mm[Hg] Dr. Ken West Work Phone: [facility] 04-21-2022 08:37-0500 Body height 167.[address] Ken West Work Phone: 5(586)616-876347 [place] [address] 04-21-2022 08:37-0500 Body mass index (BMI) [Ratio] 24.4 kg/m2 Dr. Ken West Work Phone: [facility] 04-21-2022 08:37-0500 Body weight 68.[address] Ken West Work Phone: [facility] 04-21-2022 08:37-0500 Diastolic blood pressure 74 mm[Hg] Dr. Ken West Work Phone: [facility] 04-21-2022 08:37-0500 Systolic blood pressure 133 mm[Hg] Dr. Ken West Work Phone: [facility] 03-10-2022 10:47-0500 Body weight 67.[address] Ken West Work Phone: [facility] 01-27-2022 13:20-0400 Body height 167.[address] Ken West Work Phone: [facility] Work Phone: 01-27-2022 13:18-0400 Body mass index (BMI) [Ratio] 24.5 kg/m2 Dr. Ken West Work Phone: [facility] 01-27-2022 13:18-0400 Body weight 69.[address] Ken West Work Phone: [facility] 01-27-2022 13:18-0400 Diastolic blood pressure 74 mm[Hg] Dr. Ken West Work Phone: [facility] 01-27-2022 13:18-0400 Systolic blood pressure 132 mm[Hg] Dr. Ken West Work Phone: [facility] 01-15-2022 13:36-0400 Body height 167.[address] Ken West Work Phone: [facility] Work Phone: 01-15-2022 13:36-0400 Body mass index (BMI) [Ratio] 24.3 kg/m2 Dr. Ken West Work Phone: [facility] 01-15-2022 13:36-0400 Body temperature 99.5 [degF] Dr. Ken West Work Phone: [facility] 01-15-2022 13:36-0400 Body weight 68.[address] Ken West Work Phone: [facility] Encounters Encounter Date Encounter Type Care Provider Facility Start: 09-05-2024 End: 09-05-[address] Dyana Nieves DC -[facility] Work Phone: Start: 09-05-2024 End: 09-05-[address] Orlando West MD Work Phone: [facility] Work Phone: Start: 08-09-2024 End: 08-09-[address] Orlando West MD Work Phone: [facility] Work Phone: Start: 08-09-2024 End: 08-09-2024 Patient encounter procedure Rebecca Whiteside CNM -Laboratory Specimen Work Phone: Start: 08-09-2024 End: 08-09-2024 Patient encounter procedure Rebecca Whiteside CNM -[facility] Work Phone: Start: 08-09-2024 End: 08-09-[address] Orlando West MD Work Phone: [facility] Work Phone: Start: 08-08-2024 End: 08-08-[address] Dyana Nieves DC -[facility] Work Phone: Start: 08-08-2024 End: 08-09-2024 ambulatory Orlando West Facility:[facility] Start: 07-15-2024 End: 07-15-[address] Primo Ceballos MD -[facility] Work Phone: Start: 07-15-2024 End: 07-15-2024 ambulatory Orlando West Facility:[facility] Start: 07-15-2024 End: 07-15-[address] Orlando West MD Work Phone: [facility] Work Phone: Start: 07-15-2024 End: 07-15-2024 Patient encounter procedure Martha DENNISONC -Laboratory Work Phone: Start: 07-15-2024 End: 07-15-2024 ambulatory Orlando West Facility:[facility] Start: 07-13-2024 End: 07-13-[address] Orlando West MD Work Phone: [facility] Work Phone: Start: 07-13-2024 End: 07-13-2024 Patient encounter procedure Martha DENNISONC -Laboratory, [facility] Start: 07-13-2024 End: 07-13-2024 ambulatory Orlando West Facility:[facility] Start: 07-11-2024 End: 07-11-[address] Dyana Nieves DC -[facility] Work Phone: Start: 07-11-2024 End: 07-11-2024 ambulatory Dyana Nieves Facility:[facility] Start: 06-13-2024 End: 06-13-[address] Dyana Nieves DC -[facility] Work Phone: Start: 06-13-2024 End: 06-13-2024 ambulatory Dyana Nieves Facility:[facility] Start: 05-17-2024 End: 05-17-[address] Dyana Nieves DC -[facility] Work Phone: Start: 05-17-2024 End: 05-17-2024 ambulatory Orlando West Facility:[facility] Start: 04-18-2024 End: 04-18-[address] Dyana Nieves DC -[facility] Work Phone: Start: 04-18-2024 End: 04-18-2024 ambulatory Orlando West Facility:[facility] Start: 03-21-2024 End: 03-21-[address] Dyana Nieves [place] -[facility] Work Phone: Start: 03-21-2024 End: 03-21-2024 ambulatory Orlando West Facility:[facility] Start: 03-07-2024 End: 03-07-2024 ambulatory Orlando West Facility:[facility] Start: 02-17-2024 End: 02-17-2024 ambulatory Dyana Nieves [facility] Start: 02-01-2024 End: 02-01-2024 ambulatory Orlando West [facility] Start: 01-04-2024 End: 01-04-2024 ambulatory Dyana Nieves [facility] Start: 12-10-2023 Encounter for gynecological examination (general) (routine) without abnormal findings Rebecca Whiteside [facility] Start: 12-10-2023 End: 12-10-2023 ambulatory Orlando West [facility] Start: 12-10-2023 End: 12-10-2023 ambulatory Rebecca Stevo Facility:[facility] Start: 12-07-2023 End: 12-07-2023 ambulatory Dyana Nieves [facility] Start: 11-25-2023 End: 11-25-2023 ambulatory Orlando West [facility] Start: 11-09-2023 End: 11-09-2023 ambulatory Dyana Nieves [facility] Start: 10-12-2023 End: 10-12-2023 ambulatory Dyana Nieves [facility] Start: 11-13-2022 End: 11-13-[address] Ken West Work Phone: [facility] Work Phone: Start: 11-13-2022 End: 11-13-[address] Ken West Work Phone: [facility] Work Phone: Start: 11-10-2022 End: 11-10-[address] Ken West Work Phone: [facility] Work Phone: Start: 10-13-2022 End: 10-13-[address] Ken West Work Phone: [facility] Work Phone: Start: 09-08-2022 End: 09-08-[address] Ken West Work Phone: [facility] Work Phone: Start: 04-21-2022 End: 04-21-[address] Ken West Work Phone: [facility] Work Phone: Start: 04-21-2022 End: 04-21-[address] Ken West Work Phone: [facility] Start: 04-14-2022 End: 04-14-[address] Ken West Work Phone: [facility] Start: 03-10-2022 End: 03-10-[address] Ken West Work Phone: [facility] Start: 01-27-2022 End: 01-27-[address] Ken West Work Phone: [facility] Work Phone: Start: 01-27-2022 End: 01-27-[address] Ken West Work Phone: [facility] Spec[facility] Start: 01-27-2022 End: 01-27-[address] Ken West Work Phone: [facility] Start: 01-15-2022 End: 01-15-[address] Ken West Work Phone: [facility] Work Phone: Start: 01-15-2022 End: 01-15-[address] Ken West Work Phone: [facility] Specimen Start: 01-15-2022 End: 01-15-[address] Ken West Work Phone: [facility] Procedures Date Procedure Procedure Detail Performing Clinician Start: 08-09-[address] Orlando West MD Work Phone: Start: 08-09-[address] Orlando West MD Work Phone: Start: 07-15-[address] Orlando West MD Work Phone: Comment on above: Thyroglobulin Antibody measured by [employer] an CoulterMethodologyIt should be noted that the presence of thyroglobulinantibodies may not be pathogenic nor diagnostic, especiallyat very low levels. The assay assistant drafter has found thatfour percent of individuals without evidence of thyroiddisease or autoimmunity will have positive TgAb levels upto 4 IU/mL.Performed at: [address] [id number] Director: Brien Zamorano PhD, Phone: [phone] Start: 11-13-2022 Cytopathology procedure, preparation of smear, genital source Dr. Ken West Work Phone: Start: 11-13-2022 Investigation of transfusion reaction Dr. Ken West Work Phone: Cytopathology proced ure, preparation of smear, genital source Dr. Kne West Work Phone: Cytopathology proced ure, preparation of smear, genital source Dr. Ken West Work Phone: Investigation of tra nsfusion reaction Dr. Ken West Work Phone: Investigation of tra nsfusion reaction Dr. Ken West Work Phone: Urine culture Dr. Ken West Work Phone: Urine culture Dr. Ken West Work Phone: Plan of Treatment Date Care Activity Detail Author Start: 07-15-2024 [facility] Hepatitis B surface antigen measurement [facility] Hepatitis C antibody measurement [facility] Source specific culture [facility] T4 free measurement [facility] Thyroglobulin antibo dy measurement [facility] Thyroid stimulating hormone measurement [facility] Thyroperoxidase Ab [ Units/volume] in Serum or Plasma [facility] Triiodothyronine, fr ee measurement [facility] Payers Date Payer Category Payer Self-pay [id number] 2022 Unknown [id number] Unknown OUT OF STATE [id number] Unknown [id number] Unknown [id number] 2.16.8 40.1.491033.3.579.2.462 Unknown [id number] 2.16.8 40.1.165047.3.579.2.462 Unknown [id number] 2.16.8 40.1.369386.3.579.2.462 Unknown [id number] 2.16.8 40.1.285571.3.579.2.462 Unknown [id number] 2.16.8 40.1.709105.3.579.2.462 Unknown [id number] 2.16.8 40.1.371010.3.579.2.462 Unknown [id number] 2.16.8 40.1.134429.3.579.2.462 Unknown [id number] 2.16.8 40.1.241613.3.579.2.462 Unknown [id number] 2.16.8 40.1.340459.3.579.2.462 Unknown [id number] 2.16.8 40.1.864751.3.579.2.462 Unknown [id number] 2.16.8 40.1.158359.3.579.2.462 Unknown [id number] 2.16.8 40.1.946206.3.579.2.462 Unknown [id number] 2.16.8 40.1.422841.3.579.2.462 Unknown [id number] 2.16.8 40.1.015102.3.579.2.462 Unknown [id number] 2.16.8 40.1.514825.3.579.2.462 Unknown [id number] 2.16.8 40.1.135963.3.579.2.462 Unknown [id number] 2.16.8 40.1.631020.3.579.2.462 Unknown [id number] 2.16.8 40.1.269211.3.579.2.462 Unknown [id number] 2.16.8 40.1.172011.3.579.2.462 Unknown [id number] 2.16.8 40.1.105623.3.579.2.462 Unknown [id number] 2.16.8 40.1.914482.3.579.2.462 Unknown [id number] 2.16.8 40.1.990540.3.579.2.462 Social History Date Type Detail Facility Start: 01-15-2022 End: 11-13-2022 Tobacco smoking status MOIS Unknown if ever smoked [facility] Start: 2000 Sex Assigned At Female [facility] Start: 08-03-[address] [facility] Start: 07-18-2024 End: 07-20-2024 Sex Female (finding) [facility] Goals Date Patient Goal Desired Activity /State Clinical Notes 01-27-2022 to 08-09-2024 Note Date & Type Note Facility 08-09-2024 Progress note [facility] 05-17-2024 Evaluation note Diagnosis Onset Date Resolution Back pain acute May 17, 2024 3:20pm Segmental and somatic dysfunction of cervical region acute May 17, 2 025 3:20pm Segmental and somatic dysfunction of lumbar region acute May 17 025 3:20pm Segmental and somatic dysfunction of pelvic region acute May 17 025 3:20pm Segmental and somatic dysfunction of thoracic region acute May 17 025 3:20pm Bilateral wrist pain acute Ace 2024 1:24pm Segmental and somatic dysfunction of cervical region acute June 13, 2024 1:24pm Segmental and somatic dysfunction of lumbar region acute June 13, 2024 1:24pm Segmental and somatic dysfunction of pelvic region acute June 13, 2024 1:24pm Segmental and somatic dysfunction of thoracic region acute June 13, 2024 1:24pm Headache acute July 11 1:02pm Segmental and somatic dysfunction of lumbar region acute July 11, 2024 1:02pm Segmental and somatic dysfunction of pelvic region acute July 11, 2024 1:02pm Segmental and somatic dysfunction of thoracic region acute July 11, 2024 1:02pm Thyrotoxicosis acute June 2:46pm Segmental and somatic dysfunction of cervical region acute August 08, 2024 1:02pm Segmental and somatic dysfunction of lumbar region acute August 08, 2024 1:02pm Segmental and somatic dysfunction of pelvic region acute August 08, 2024 1:02pm Segmental and somatic dysfunction of thoracic region acute August 08, 2024 1:02pm Recurrent candidiasis of vagina acute August 09, 2024 10:24am [facility] Work Phone: 1(241) 843-354202-18-2025 Evaluation note* Diagnosis Onset Date Resolution Status Admit Date Back pain acute May 17, 2024 3:20pm Segmental and somatic dysfunction of cervical region acute F ebruary 2024 3:20pm Segmental and somatic dysfunction of lumbar region acute Feb ruary 2024 3:20pm Segmental and somatic dysfunction of pelvic region acute Feb ruary 2024 3:20pm Segmental and somatic dysfunction of thoracic region acute F ebruary 2024 3:20pm Bilateral wrist pain acute Ace h 2024 1:24pm Segmental and somatic dysfunction of cervical region acute M arch 2024 1:24pm Segmental and somatic dysfunction of lumbar region acute Mar ch 2024 1:24pm Segmental and somatic dysfunction of pelvic region acute Mar ch 2024 1:24pm Segmental and somatic dysfunction of thoracic region acute M arch 2024 1:24pm Headache acute July 11 1:02pm Segmental and somatic dysfunction of lumbar region acute Apr il 2024 1:02pm Segmental and somatic dysfunction of pelvic region acute Apr il 2024 1:02pm Segmental and somatic dysfunction of thoracic region acute A pril 2024 1:02pm Thyrotoxicosis acute June 2:46pm Segmental and somatic dysfunction of cervical region acute M ay 2024 1:02pm Segmental and somatic dysfunction of lumbar region acute August 08, 2024 1:02pm Segmental and somatic dysfunction of pelvic region acute August 08, 2024 1:02pm Segmental and somatic dysfunction of thoracic region acute M ay 2024 1:02pm Recurrent candidiasis of vagina acut e August 09, 2024 10:24am Segmental and somatic dysfunction of cervical region acute J une 2024 1:01pm Segmental and somatic dysfunction of lumbar region acute Migue e 2024 1:01pm Segmental and somatic dysfunction of pelvic region acute Migue e 2024 1:01pm Segmental and somatic dysfunction of thoracic region acute J une 2024 1:01pm [facility] Work Phone: 1(235) 487-140201-20-2025 Evaluation note* Diagnosis Onset Date Resolution Status Admit Date Back pain acute April 18, 2024 3:19pm Segmental and somatic dysfunction of cervical region acute J anuary 2024 3:19pm Segmental and somatic dysfunction of lumbar region acute Shreyas uary 2024 3:19pm Segmental and somatic dysfunction of pelvic region acute Shreyas ua2024 3:19pm Segmental and somatic dysfunction of thoracic region acute J anuary 2024 3:19pm Left knee pain resolved April 182024 3:19pm Back pain acute May 17, 2024 3:20pm Segmental and somatic dysfunction of cervical region acute F ebruary 2024 3:20pm Segmental and somatic dysfunction of lumbar region acute Feb ruary 2024 3:20pm Segmental and somatic dysfunction of pelvic region acute Feb ruary 2024 3:20pm Segmental and somatic dysfunction of thoracic region acute F ebruary 2024 3:20pm Bilateral wrist pain acute Ace h 2024 1:24pm Segmental and somatic dysfunction of cervical region acute M arch 2024 1:24pm Segmental and somatic dysfunction of lumbar region acute Mar ch 2024 1:24pm Segmental and somatic dysfunction of pelvic region acute Mar ch 2024 1:24pm Segmental and somatic dysfunction of thoracic region acute M arch 2024 1:24pm Headache acute July 11 1:02pm Segmental and somatic dysfunction of lumbar region acute Apr il 2024 1:02pm Segmental and somatic dysfunction of pelvic region acute Apr il 2024 1:02pm Segmental and somatic dysfunction of thoracic region acute A pril 2024 1:02pm Thyrotoxicosis acute June 2:46pm [facility] Work Phone: 1(269) 272-263901-20-2025 Evaluation note* Diagnosis Onset Date Resolution Status Admit Date Back pain acute April 18, 2024 3:19pm Segmental and somatic dysfunction of cervical region acute J anuary 2024 3:19pm Segmental and somatic dysfunction of lumbar region acute Shreyas uary 2024 3:19pm Segmental and somatic dysfunction of pelvic region acute Shreyas uary 2024 3:19pm Segmental and somatic dysfunction of thoracic region acute J anuary 2024 3:19pm Left knee pain resolved April 182024 3:19pm Back pain acute May 17, 2024 3:20pm Segmental and somatic dysfunction of cervical region acute F ebruary 2024 3:20pm Segmental and somatic dysfunction of lumbar region acute Feb ruary 2024 3:20pm Segmental and somatic dysfunction of pelvic region acute Feb ruary 2024 3:20pm Segmental and somatic dysfunction of thoracic region acute F ebruary 2024 3:20pm Bilateral wrist pain acute Ace h 2024 1:24pm Segmental and somatic dysfunction of cervical region acute M arch 2024 1:24pm Segmental and somatic dysfunction of lumbar region acute Mar ch 2024 1:24pm Segmental and somatic dysfunction of pelvic region acute Mar ch 2024 1:24pm Segmental and somatic dysfunction of thoracic region acute M arch 2024 1:24pm Headache acute July 11 1:02pm Segmental and somatic dysfunction of lumbar region acute Apr il 2024 1:02pm Segmental and somatic dysfunction of pelvic region acute Apr il 2024 1:02pm Segmental and somatic dysfunction of thoracic region acute A pril 2024 1:02pm Thyrotoxicosis acute June 2:46pm Segmental and somatic dysfunction of cervical region acute M ay 2024 1:02pm Segmental and somatic dysfunction of lumbar region acute August 08, 2024 1:02pm Segmental and somatic dysfunction of pelvic region acute August 08, 2024 1:02pm Segmental and somatic dysfunction of thoracic region acute M ay 2024 1:02pm Recurrent candidiasis of vagina acute August 09, 2024 1 0:24am [facility] Work Phone: 1(333) 127-704812-23-2024 Evaluation note* Diagnosis Onset Date Resolution Status Admit Date Segmental and somatic dysfunction of cervical region acute D ecember 2023 2:23pm Segmental and somatic dysfunction of lumbar region acute Dec ember 2023 2:23pm Segmental and somatic dysfunction of pelvic region acute Dec ember 2023 2:23pm Segmental and somatic dysfunction of thoracic region acute D ecember 2023 2:23pm Back pain acute April 18, 2024 3:19pm Segmental and somatic dysfunction of cervical region acute J anuary 2024 3:19pm Segmental and somatic dysfunction of lumbar region acute Shreyas uary 2024 3:19pm Segmental and somatic dysfunction of pelvic region acute Shreyas uary 2024 3:19pm Segmental and somatic dysfunction of thoracic region acute J anuary 2024 3:19pm Left knee pain resolved April 182024 3:19pm Back pain acute May 17, 2024 3:20pm Segmental and somatic dysfunction of cervical region acute F ebruary 2024 3:20pm Segmental and somatic dysfunction of lumbar region acute Feb ruary 2024 3:20pm Segmental and somatic dysfunction of pelvic region acute Feb ruary 2024 3:20pm Segmental and somatic dysfunction of thoracic region acute F ebruary 2024 3:20pm Bilateral wrist pain acute Ace h 2024 1:24pm Segmental and somatic dysfunction of cervical region acute M arch 2024 1:24pm Segmental and somatic dysfunction of lumbar region acute Mar ch 2024 1:24pm Segmental and somatic dysfunction of pelvic region acute Mar ch 2024 1:24pm Segmental and somatic dysfunction of thoracic region acute M arch 2024 1:24pm Headache acute July 11 1:02pm Segmental and somatic dysfunction of lumbar region acute Apr il 2024 1:02pm Segmental and somatic dysfunction of pelvic region acute Apr il 2024 1:02pm Segmental and somatic dysfunction of thoracic region acute A pril 2024 1:02pm Thyrotoxicosis acute June 2:46pm [facility] Work Phone: 1(793) 225-657210-31-2022 NotePap Smear Specimen AdequacyOctober 2021 4:55pmComment.Satisfactory for evaluation. Endocervical and/or squamous metaplasticcells (endocervical component)are present.[facility] A#[id number] Hospital Work Phone: Comment on above:Satisfactory for evaluation. Endocervical and/or squamous metaplasticcells (endocervical component)are present.01-27-2022 NotePap Smear Specimen AdequacyOctober 2021 4:55pm Comment.Satisfactory for evaluation. Endocervical and/or squamous metaplasticcells (endocervical component)are present.[facility] A#[id number] County HospitalComment on above:Satisfactory for evaluation. Endocervical and/or squamous metaplasticcells (endocervical component)are present.Evaluation note* Diagnosis Onset Date Resolution Status UTI (urinary tract infection) noneactive [facility] Work Phone: Evaluation note* Diagnosis Onset Date Resolution Status UTI (urinary tract infection) noneactive Recurrent postcoital urinary tract infection acute Vaginal discharge noneactive [facility] Work Phone: Evaluation note* Diagnosis Onset Date Resolution Status UTI (urinary tract infection) noneactive Recurrent postcoital urinary tract infection acute Vaginal discharge noneactive Segmental and somatic dysfunction of cervical region acute Segmental and somatic dysfunction of lumbar region acute Segmental and somatic dysfunction of thoracic region acute Segmental and somatic dysfunction of cervical region acute Segmental and somatic dysfunction of lumbar region acute Segmental and somatic dysfunction of thoracic region acute Back pain noneactive Routine screening for STI (s exually transmitted infection) acute [facility] Work Phone: Evaluation note* Diagnosis Onset Date Resolution Status Segmental and somatic dysfunction of cervical region acute Segmental and somatic dysfunction of lumbar region acute Segmental and somatic dysfunction of pelvic region acute Segmental and somatic dysfunction of thoracic region acute Back pain noneactive Segmental and somatic dysfunction of cervical region acute Segmental and somatic dysfunction of lumbar region acute Segmental and somatic dysfunction of pelvic region acute Segmental and somatic dysfunction of thoracic region acute Back pain noneactive Segmental and somatic dysfunction of cervical region acute Segmental and somatic dysfunction of lumbar region acute Segmental and somatic dysfunction of pelvic region acute Segmental and somatic dysfunction of thoracic region acute Back pain noneactive Routine screening for STI (s exually transmitted infection) [facility] Work Phone: Progress note Author Rebecca Whiteside [facility] Note Date/Time August 09, 2024 11:[address] [facility] [address], [address] [place] [address] OFFICE VISIT Date of Service: 08/09/24 MR#: [id number] Acct: [id number] Name: CHARISSE TSE Rep #: [id number] : 2000 Provider: MADYSON Whiteside Age/Sex: 23/F [place] [facility] [place]: Signed Intake Vital Signs 07/15/24 14:52 08/09/24 10:32 08/09/24 10:33 Height 5 ft 6 in 5 ft 6 in 5 ft 6 in Weight: 157 lb 151 lb 6 oz BMI 25.3 24.4 BP 136/96 H 128/69 H Blood Pressure Location Lt brachial Position Sitting Pulse 113 H Pulse Source Monitor Pulse Oximetry (%) 98 Oxygen Delivery Method room air Intake Visit Reasons: Discuss hormones Chief Complaint: Discuss Hormones Lifestyle Director Required: No Is patient in pain?: No Allergies No Known Allergies Allergy (Verified 08/09/24 10:32) Medications ?Medication ?Instructions ?Recorded ?Confirmed ?Type etonogestrel 0.12 mg-ethinyl 1 vag ring vaginal Q4W #3 ea 12/10/23 08/09/24 Rx estradiol 0.015 mg/24 hr vaginal ring (NuvaRing) methimazole 10 mg tablet 20 mg (2 x 10 mg) PO QDAY #6 0 tabs 08/01/24 08/09/24 Rx fluconazole 150 mg tablet 150 mg PO Q3D 2 doses #2 tab s 08/09/24 08/09/24 Rx Control Method: NuvaRing [facility] Medical History Thyrotoxicosis Surgical History S/P wisdom tooth extraction Family History Mother Hypertension Grandmother Hypertension Aunt Hypertension Uncle Myocardial infarction Social History Smoking Status: Never smoker alcohol intake: current details: occasionally substance use type: does not use caffeine: No what type of physical activity do you participate in: walking and weight training frequency: 3-4 times per week seatbelt use: always do you feel safe at home: Yes additional social history: Single-Works at [employer] HPI Discuss hormones Details: CHARISSE TSE is a 23 year old who presents for follow up for control follow up. recently dx with graves disease after having headache for one week. went to PCP and labs done which showed hyperthyroid. following with Dr Ceballos. wants to make sure nuvaring is ok with this dx. menses are normal but has noticed slight changes over the last couple months. WOuld like to attempt in the next couple years and is concerned with this. concerns with yeast infection that has been recurring on and off the last couplemonths-has not used OTC med. Female Reproductive History Last Menstrual Period: 08/04/24 Cycle Length: 21-35 Bleeding Duration: 4 Questions: metorrhagia: No, sexually active: Yes, dyspareunia: No and PCB: No History 0 Elective abortions Hx Para Spontaneous abortions Hx # Term Pregnancies Ectopic pregnancies Hx # Pregnancies Multiple births # of living children ROS Const Constitutional: Reports system reviewed and no additional complaints, except as documented Cardio Card: Reports system reviewed and no additional complaints, except as documented Resp Resp: Reports system reviewed and no additional complaints, except as documented GI GI: Reports system reviewed and no additional complaints, except as documented : Reports system reviewed and no additional complaints, except as documented; Denies difficulty voiding, dysuria or urinary frequency Skin Skin/Breast: Reports system reviewed and no additional complaints, except as documented Neuro Neuro: Reports system reviewed and no additional complaints, except as documented Psych Psych: Reports system reviewed and no additional complaints, except as documented Exam Const General: cooperative, healthy appearing, comfortable and no acute distress Resp Effort & Inspection: normal respiratory effort, able to speak in complete sentences and symmetric chest movement GI Inspection: normal to inspection Palpation: soft External Female Exam: normal external appearance and normal appearance of the urethra Urethra: normal appearance of the urethra Speculum Exam - Vagina: normal appearance of the vagina and normal vaginal discharge Speculum Exam - Cervix: normal appearance of the cervix and nontender Bimanual Exam- Vagina & Uterus: normal bimanual exam, normal palpation, uterine size normal, No tender and non-tender Bimanual Exam- Adnexa, other: normal Pelvic Support: normal Neuro General: patient alert, patient awake and patient oriented x3 Cognition: normal cognition Speech: speech normal Gait: normal gait Psych Appearance: grossly normal and well kempt Mental Status: mental status grossly normal Affect: normal affect Speech and Movement: speech and movement normal Attitude: cooperative Thought Process: normal Thought Content: normal Judgment: judgment good Coding Level of Care Code Off vis,est,level 3 Diagnoses Recurrent candidiasis of vagina B37.3 Assessment and Plan Assessment and Plan (1) Recurrent candidiasis of vagina: Status: Acute Plan: genital culture diflucan x 2 RTO annual/prn Orders: Orders Culture, Genital Comprehensive Today N89.8 - Other specified noninflammatory disorders of vagina Medications: New fluconazole may repeat second dose 72 hrs after first dose if symptoms persist 150 mg POQ3D 2 doses 2 tabs 0RF Plan Details Goals & Barriers: Goals Decrease trigger pts/spasm Decrease pain Improve mobility Decrease HAs 08/09/24 1104 <Electronically signed by Rebecca Rodolfo s CNM> Date _ Rebecca Whiteside CNM Cosigner Signature: Date (if applicable) CC: ~ [facility] Work Phone: Reason for referral (narrative)No reason for referral information [facility]WOhio[facility] Work Phone: Chief Complaint and Reason for Visit Chief Complaint UTI sx Reason for Visit UTI (urinary tract i nfection) Chief Complaint UTI sx REOCCURING UTI AFTER INTERCOURSE Reason for Visit UTI (urinary tract i nfection) Recurrent postcoital urinary tract infection Vaginal discharge Chief Complaint UTI sx REOCCURING UTI AFTER INTERCOURSE EST CARE Back pain STD recheck, declined to see MH again Reason for Visit UTI (urinary tract i nfection) Recurrent postcoital urinary tract infection Vaginal discharge Segmental and somatic dysfunction of cervical region Segmental and somatic dysfunction of lumbar region Segmental and somatic dysfunction of thoracic region Segmental and somatic dysfunction of cervical region Segmental and somatic dysfunction of lumbar region Segmental and somatic dysfunction of thoracic region Back pain Routine screening for STI (sexually transmitted infection) Chief Complaint Back Pain BACK PAIN Back pain std testing, pt has questions for provider Reason for Visit Segmental and somati c dysfunction of cervical region Segmental and somatic dysfunction of lumbar region Segmental and somatic dysfunction of pelvic region Segmental and somatic dysfunction of thoracic region Back pain Segmental and somatic dysfunction of cervical region Segmental and somatic dysfunction of lumbar region Segmental and somatic dysfunction of pelvic region Segmental and somatic dysfunction of thoracic region Back pain Segmental and somatic dysfunction of cervical region Segmental and somatic dysfunction of lumbar region Segmental and somatic dysfunction of pelvic region Segmental and somatic dysfunction of thoracic region Back pain Routine screening for STI (sexually transmitted infection) Chief Complaint Admit Date DRY NEEDLING/ADJUSTMENT March 21, 2 024 2:23pm DRY NEEDLING/ADJUSTMENT April 18 3:19pm DRY NEEDLING/ADJUSTMENT May 17, 2 025 3:20pm DRY NEEDLING/ADJUSTMENT June 13, 2024 1:24pm BACK PAIN July 11, 2024 1:0 2pm Thyroid July 15, 2024 2:4 6pm Reason for Visit Admit Date Segmental and somatic dysfunction of cer vical region March 21, 2024 2:23pm Segmental and somatic dysfunction of lum bar region March 21, 2024 2:23pm Segmental and somatic dysfunction of pel kj region March 21, 2024 2:23pm Segmental and somatic dysfunction of tho racic region March 21, 2024 2:23pm Back pain April 18, 2024 3 :19pm Segmental and somatic dysfunction of cer vical region April 18, 2024 3:19pm Segmental and somatic dysfunction of lum bar region April 18, 2024 3:19pm Segmental and somatic dysfunction of pel kj region April 18, 2024 3:19pm Segmental and somatic dysfunction of tho racic region April 18, 2024 3:19pm Left knee pain April 18, 2024 3 :19pm Back pain May 17, 2024 3:20pm Segmental and somatic dysfunction of cer vical region May 17, 2024 3:20pm Segmental and somatic dysfunction of lum bar region May 17, 2024 3:20pm Segmental and somatic dysfunction of pel kj region May 17, 2024 3:20pm Segmental and somatic dysfunction of tho racic region May 17, 2024 3:20pm Bilateral wrist pain June 13, 2024 1: 24pm Segmental and somatic dysfunction of cer vical region June 13, 2024 1:24pm Segmental and somatic dysfunction of lum bar region June 13, 2024 1:24pm Segmental and somatic dysfunction of pel kj region June 13, 2024 1:24pm Segmental and somatic dysfunction of tho racic region June 13, 2024 1:24pm Headache July 11, 2024 1:0 2pm Segmental and somatic dysfunction of lum bar region July 11, 2024 1:02pm Segmental and somatic dysfunction of pel kj region July 11, 2024 1:02pm Segmental and somatic dysfunction of tho racic region July 11, 2024 1:02pm Thyrotoxicosis July 15, 2024 2:4 6pm Chief Complaint Admit Date DRY NEEDLING/ADJUSTMENT April 18 3:19pm DRY NEEDLING/ADJUSTMENT May 17 3:20pm DRY NEEDLING/ADJUSTMENT June 13, 2024 1:24pm BACK PAIN July 11, 2024 1:0 2pm Thyroid July 15, 2024 2:4 6pm Reason for Visit Admit Date Back pain April 18, 2024 3 :19pm Segmental and somatic dysfunction of cer vical region April 18, 2024 3:19pm Segmental and somatic dysfunction of lum bar region April 18, 2024 3:19pm Segmental and somatic dysfunction of pel kj region April 18, 2024 3:19pm Segmental and somatic dysfunction of tho racic region April 18, 2024 3:19pm Left knee pain April 18, 2024 3 :19pm Back pain May 17, 2024 3:20pm Segmental and somatic dysfunction of cer vical region May 17, 2024 3:20pm Segmental and somatic dysfunction of lum bar region May 17, 2024 3:20pm Segmental and somatic dysfunction of pel kj region May 17, 2024 3:20pm Segmental and somatic dysfunction of tho racic region May 17, 2024 3:20pm Bilateral wrist pain June 13, 2024 1: 24pm Segmental and somatic dysfunction of cer vical region June 13, 2024 1:24pm Segmental and somatic dysfunction of lum bar region June 13, 2024 1:24pm Segmental and somatic dysfunction of pel kj region June 13, 2024 1:24pm Segmental and somatic dysfunction of tho racic region June 13, 2024 1:24pm Headache July 11, 2024 1:0 2pm Segmental and somatic dysfunction of lum bar region July 11, 2024 1:02pm Segmental and somatic dysfunction of pel kj region July 11, 2024 1:02pm Segmental and somatic dysfunction of tho racic region July 11, 2024 1:02pm Thyrotoxicosis July 15, 2024 2:4 6pm Chief Complaint Admit Date DRY NEEDLING/ADJUSTMENT April 18 3:19pm DRY NEEDLING/ADJUSTMENT May 17 3:20pm DRY NEEDLING/ADJUSTMENT June 13, 2024 1:24pm BACK PAIN July 11, 2024 1:0 2pm Thyroid July 15, 2024 2:4 6pm DRY NEEDLING/ADJUSTMENT August 08, 2024 1 :02pm Discuss hormones August 09, 2024 10:24 am Reason for Visit Admit Date Back pain April 18, 2024 3 :19pm Segmental and somatic dysfunction of cer vical region April 18, 2024 3:19pm Segmental and somatic dysfunction of lum bar region April 18, 2024 3:19pm Segmental and somatic dysfunction of pel kj region April 18, 2024 3:19pm Segmental and somatic dysfunction of tho racic region April 18, 2024 3:19pm Left knee pain April 18, 2024 3 :19pm Back pain May 17, 2024 3:20pm Segmental and somatic dysfunction of cer vical region May 17, 2024 3:20pm Segmental and somatic dysfunction of lum bar region May 17, 2024 3:20pm Segmental and somatic dysfunction of pel kj region May 17, 2024 3:20pm Segmental and somatic dysfunction of tho racic region May 17, 2024 3:20pm Bilateral wrist pain June 13, 2024 1: 24pm Segmental and somatic dysfunction of cer vical region June 13, 2024 1:24pm Segmental and somatic dysfunction of lum bar region June 13, 2024 1:24pm Segmental and somatic dysfunction of pel kj region June 13, 2024 1:24pm Segmental and somatic dysfunction of tho racic region June 13, 2024 1:24pm Headache July 11, 2024 1:0 2pm Segmental and somatic dysfunction of lum bar region July 11, 2024 1:02pm Segmental and somatic dysfunction of pel kj region July 11, 2024 1:02pm Segmental and somatic dysfunction of tho racic region July 11, 2024 1:02pm Thyrotoxicosis July 15, 2024 2:4 6pm Segmental and somatic dysfunction of cer vical region August 08, 2024 1:02pm Segmental and somatic dysfunction of lum bar region August 08, 2024 1:02pm Segmental and somatic dysfunction of pel kj region August 08, 2024 1:02pm Segmental and somatic dysfunction of tho racic region August 08, 2024 1:02pm Recurrent candidiasis of vagina July 10:24am Chief Complaint Admit Date DRY NEEDLING/ADJUSTMENT May 17 025 3:20pm DRY NEEDLING/ADJUSTMENT June 13, 2024 1:24pm BACK PAIN July 11, 2024 1:0 2pm Thyroid July 15, 2024 2:4 6pm DRY NEEDLING/ADJUSTMENT August 08, 2024 1 :02pm Discuss hormones August 09, 2024 10:24 am Reason for Visit Admit Date Back pain May 17, 2024 3:20pm Segmental and somatic dysfunction of cer vical region May 17, 2024 3:20pm Segmental and somatic dysfunction of lum bar region May 17, 2024 3:20pm Segmental and somatic dysfunction of pel kj region May 17, 2024 3:20pm Segmental and somatic dysfunction of tho racic region May 17, 2024 3:20pm Bilateral wrist pain June 13, 2024 1: 24pm Segmental and somatic dysfunction of cer vical region June 13, 2024 1:24pm Segmental and somatic dysfunction of lum bar region June 13, 2024 1:24pm Segmental and somatic dysfunction of pel kj region June 13, 2024 1:24pm Segmental and somatic dysfunction of tho racic region June 13, 2024 1:24pm Headache July 11, 2024 1:0 2pm Segmental and somatic dysfunction of lum bar region July 11, 2024 1:02pm Segmental and somatic dysfunction of pel kj region July 11, 2024 1:02pm Segmental and somatic dysfunction of tho racic region July 11, 2024 1:02pm Thyrotoxicosis July 15, 2024 2:4 6pm Segmental and somatic dysfunction of cer vical region August 08, 2024 1:02pm Segmental and somatic dysfunction of lum bar region August 08, 2024 1:02pm Segmental and somatic dysfunction of pel kj region August 08, 2024 1:02pm Segmental and somatic dysfunction of tho racic region August 08, 2024 1:02pm Recurrent candidiasis of vagina July 10:24am Chief Complaint Admit Date DRY NEEDLING/ADJUSTMENT May 17 025 3:20pm DRY NEEDLING/ADJUSTMENT June 13, 2024 1:24pm BACK PAIN July 11, 2024 1:0 2pm Thyroid July 15, 2024 2:4 6pm DRY NEEDLING/ADJUSTMENT August 08, 2024 1 :02pm Discuss hormones August 09, 2024 10:24 am ACUPUNCTURE/ADJUSTMENT September 05, 2024 1: 01pm Reason for Visit Admit Date Back pain May 17, 2024 3:20pm Segmental and somatic dysfunction of cer vical region May 17, 2024 3:20pm Segmental and somatic dysfunction of lum bar region May 17, 2024 3:20pm Segmental and somatic dysfunction of pel kj region May 17, 2024 3:20pm Segmental and somatic dysfunction of tho racic region May 17, 2024 3:20pm Bilateral wrist pain June 13, 2024 1: 24pm Segmental and somatic dysfunction of cer vical region June 13, 2024 1:24pm Segmental and somatic dysfunction of lum bar region June 13, 2024 1:24pm Segmental and somatic dysfunction of pel kj region June 13, 2024 1:24pm Segmental and somatic dysfunction of tho racic region June 13, 2024 1:24pm Headache July 11, 2024 1:0 2pm Segmental and somatic dysfunction of lum bar region July 11, 2024 1:02pm Segmental and somatic dysfunction of pel kj region July 11, 2024 1:02pm Segmental and somatic dysfunction of tho racic region July 11, 2024 1:02pm Thyrotoxicosis July 15, 2024 2:4 6pm Segmental and somatic dysfunction of cer vical region August 08, 2024 1:02pm Segmental and somatic dysfunction of lum bar region August 08, 2024 1:02pm Segmental and somatic dysfunction of pel kj region August 08, 2024 1:02pm Segmental and somatic dysfunction of tho racic region August 08, 2024 1:02pm Recurrent candidiasis of vagina July 10:24am Segmental and somatic dysfunction of cer vical region September 05, 2024 1:01pm Segmental and somatic dysfunction of lum bar region September 05, 2024 1:01pm Segmental and somatic dysfunction of pel kj region September 05, 2024 1:01pm Segmental and somatic dysfunction of tho racic region September 05, 2024 1:01pm Family History No Family History Records Found Relationship Condition Age at Onset Recorded Date/T abdulaziz mother Hypertension Unknown grandmother Hypertension Unknown aunt Hypertension Unknown uncle Myocardial infarction Unknown Summary Purpose Advance Directives No Advanced Directives Records Found Additional Source Comments Goals (unrecognized section and content) Goals may be documented in a n alternate sectionGoals may be documented in an alternate section Care Teams (unrecognized sec tion and content) Team Status: Active Member Role Status Dates Dr. Ken West MD Family Provider Active Dr. Ken West MD Primary Care Provider Activ e Team Status: Inactive Member Role Status Dates Dr. Ken West MD Primary Care Provider, Refe rring Provider Active Shwetha Sibley SOLUTIONS OPERATOR, SOLUTIONS OPERATOR-C Attending Provider Active Team Status: Inactive Member Role Status Dates Dr. Ken West MD Primary Care Provider, Refe rring Provider Active Dr. Dyana Nieves DC Attending Provider Active Team Status: Inactive Member Role Status Dates Dr. Ken West MD Primary Care Provider, Refe rring Provider Active Talisha Mcnair CNM Attending Provider Active Team Status: Inactive Member Role Status Dates Dr. Ken West MD Primary Care Provider Activ e Shwetha Sibley SOLUTIONS OPERATOR, SOLUTIONS OPERATOR-C Attending Provider, Referring Provider Active Team Status: Inactive Member Role Status Dates Dr. Ken West MD Primary Care Provider Activ e Talisha Mcnair CNM Attending Provider, Referring Pr ovider Active Team Status: Inactive Member Role Status Dates Dr. Ken West MD Primary Care Provider, Refe rring Provider Active Rebecca Whiteside CNM Attending Provider Active Team Status: Inactive Member Role Status Dates Dr. Ken West MD Primary Care Provider Activ ivan Whiteside CNM Attending Provider, Referring Pro vider Active Team Status: Active Member Role Status Dates Dr. Orlando West MD Primary Care Provider Acti ve Team Status: Inactive Member Role Status Dates Dr. Orlando West MD Primary Care Provider Acti ve Start: March 21, 2024 End: March 21, 2024 Dr. Dyana Nieves DC Attending Provider Active S tart: March 21, 2024 End: March 21, 2024 Dr. Dyana Nieves DC Referring Provider Active S tart: March 21, 2024 End: March 21, 2024 Team Status: Inactive Member Role Status Dates Dr. Orlando West MD Primary Care Provider Acti ve Start: April 18, 2024 End: April 18, 2024 Dr. Dyana Nieves DC Attending Provider Active S tart: April 18, 2024 End: April 18, 2024 Dr. Dyana Nieves DC Referring Provider Active S tart: April 18, 2024 End: April 18, 2024 Team Status: Inactive Member Role Status Dates Dr. Orlando West MD Primary Care Provider Acti ve Start: May 17, 2024 End: May 17, 2024 Dr. Dyana Nieves DC Attending Provider Active S tart: May 17, 2024 End: May 17, 2024 Dr. Dyana Nieves DC Referring Provider Active S tart: May 17, 2024 End: May 17, 2024 Team Status: Inactive Member Role Status Dates Dr. Orlando West MD Primary Care Provider Acti ve Start: June 13, 2024 End: June 13, 2024 Dr. Dyana Nieves DC Attending Provider Active S tart: June 13, 2024 End: June 13, 2024 Dr. Dyana Nieves DC Referring Provider Active S tart: June 13, 2024 End: June 13, 2024 Team Status: Inactive Member Role Status Dates Dr. Orlando West MD Primary Care Provider Acti ve Start: July 11, 2024 End: July 11, 2024 Dr. Orlando West MD Referring Provider Active Start: July 11, 2024 End: July 11, 2024 Dr. Dyana Nieves DC Attending Provider Active S tart: July 11, 2024 End: July 11, 2024 Team Status: Inactive Member Role Status Dates Dr. Orlando West MD Primary Care Provider Acti ve Start: July 13, 2024 End: July 13, 2024 Martha Melendez SOLUTIONS OPERATOR, SOLUTIONS OPERATOR-C Attending Provider Active S tart: July 13, 2024 End: July 13, 2024 Team Status: Active Member Role Status Dates Dr. Orlando West MD Primary Care Provider Acti ve Start: July 15, 2024 Martha Melendez SOLUTIONS OPERATOR, SOLUTIONS OPERATOR-C Attending Provider Active S tart: July 15, 2024 Martha Melendez SOLUTIONS OPERATOR, SOLUTIONS OPERATOR-C Referring Provider Active S tart: July 15, 2024 Team Status: Inactive Member Role Status Dates Dr. Orlando West MD Primary Care Provider Acti ve Start: July 15, 2024 End: July 15, 2024 Dr. Orlando West MD Referring Provider Active Start: July 15, 2024 End: July 15, 2024 Dr. Primo Ceballos MD Attending Provider Active Sta rt: July 15, 2024 End: July 15, 2024 Team Status: Inactive Member Role Status Dates Dr. Orlando West MD Primary Care Provider Acti ve Start: July 15, 2024 End: July 15, 2024 Martha Melendez SOLUTIONS OPERATOR, SOLUTIONS OPERATOR-C Attending Provider Active S tart: July 15, 2024 End: July 15, 2024 Martha Melendez SOLUTIONS OPERATOR, SOLUTIONS OPERATOR-C Referring Provider Active S tart: July 15, 2024 End: July 15, 2024 Team Status: Inactive Member Role Status Dates Dr. Orlando West MD Primary Care Provider Acti ve Start: August 08, 2024 End: August 08, 2024 Dr. Orlando West MD Referring Provider Active Start: August 08, 2024 End: August 08, 2024 Dr. Dyana Nieves DC Attending Provider Active S tart: August 08, 2024 End: August 08, 2024 Team Status: Inactive Member Role Status Dates Dr. Orlando West MD Primary Care Provider Acti ve Start: August 09, 2024 End: August 09, 2024 Dr. Orlando West MD Referring Provider Active Start: August 09, 2024 End: August 09, 2024 Rebecca Whiteside CNM Attending Provider Active S tart: August 09, 2024 End: August 09, 2024 Team Status: Inactive Member Role Status Dates Dr. Orlando West MD Primary Care Provider Acti ve Start: August 09, 2024 End: August 09, 2024 Rebecca Whiteside CNM Attending Provider Active S tart: August 09, 2024 End: August 09, 2024 Rebecca Whiteside CNM Referring Provider Active S tart: August 09, 2024 End: August 09, 2024 Team Status: Inactive Member Role Status Dates Dr. Orlando West MD Primary Care Provider Acti ve Start: September 05, 2024 End: September 05, 2024 Dr. Orlando West MD Referring Provider Active Start: September 05, 2024 End: September 05, 2024 Dr. Dyana Nieves DC Attending Provider Active S tart: September 05, 2024 End: September 05, 2024 INFORMATION SOURCE (unrecogn ized section and content) DATE CREATED AUTHOR 09/06/2024 [facility] FOR RECORDS PERTAINING TO PATIENTS WHO ARE OR HAVE BEEN ENROLLED IN A CHEMICAL DEPENDENCY/SUBSTANCEABUSE PROGRAM, SOME INFORMATION MAY BE OMITTED. This clinical summary was aggregated from multiple sources. Caution should be exercised in using it in the provision of clinical care. This summary normalizes information from multiple sources, and as a consequence, information in this document may materially change the coding, format and clinical context of patient data. In addition, data may be omitted in some cases. CLINICAL DECISIONS SHOULD BE BASED ON THE PRIMARY CLINICAL RECORDS. [facility] provides no warranty or guarantee of the accuracy or completeness of information in this document.
== END | disposition home or self-care (01) ==
LOC: LAB 09:10
PROVIDERS: PCP Family Medicine; Referring Provider Internal Medicine Endocrinology, Diabetes & Metabolism; Visit Provider Internal Medicine Endocrinology, Diabetes & Metabolism
DX: E05.90 Thyrotoxicosis, unspecified without thyrotoxic crisis or storm (principal)
CPT/HCPCS: 36415; 84439; 84443; 84481

== ENCOUNTER → 2024-10-26 | Outpatient (CLI) | payer OTHER, SELFPAY ==
[2024-10-26 14:31] LABS: Free T3 2.7 pg/mL (2.18-3.98)
== END | disposition home or self-care (01) ==
LOC: LAB 13:23
PROVIDERS: PCP Family Medicine; Referring Provider Internal Medicine Endocrinology, Diabetes & Metabolism; Visit Provider Internal Medicine Endocrinology, Diabetes & Metabolism
DX: E05.00 Thyrotoxicosis with diffuse goiter without thyrotoxic crisis or storm (principal)
CPT/HCPCS: 36415; 84439; 84443; 84481

== ENCOUNTER → 2024-12-23 | Outpatient (CLI) | payer OTHER, SELFPAY ==
[2024-12-26 20:08] LABS: Chlamydia By Nucleic Acid AMP Negative (Negative); Gonococcus By Nucleic Acid AMP Negative (Negative)
== END | disposition home or self-care (01) ==
LOC: LABSPEC 16:05
PROVIDERS: PCP Family Medicine; Visit Provider Advanced Practice Midwife
DX: Z12.4 Encounter for screening for malignant neoplasm of cervix (principal); N89.8 Other specified noninflammatory disorders of vagina; Z11.3 Encounter for screening for infections with a predominantly sexual mode of transmission
CPT/HCPCS: 87070; 87205; 87491; 87591; 88175; G0145